=== PATIENT | male | born 1985 | race Caucasian/White ===

== ENCOUNTER 2023-03-21 11:47 | Day surgery (SDC) | payer OTHER, SELFPAY ==
[2023-03-21] VITALS (8 sets, daily range): BP systolic 111–179; BP diastolic 72–101; PULSE 78–91; RESP 16–18; TEMP 36.8–37.1; O2SAT 91–100; BMI 28.6
[2023-03-21] MEDS: Lactated Ringers 1,000 ML 15 ML IV (12:27)
--- NOTE | 2023-03-21 12:47 | HP.PCM_ITS ---
History and Physical Date of Admission: 03/21/23 Intake Vital Signs 03/10/2315:06 Height 5 ft 7 in Weight: 184 lb BMI 28.8 BP 158/115 H Blood Pressure Location Rt brachial Position Sitting Respiration 18 Intake Visit Reasons: BRB IN STOOL, DIARRHEA, DYSPHAGIA Chief Complaint: brb, diarrhea, dysphagia Programmer Or Analyst Required: No Is patient in pain?: No Allergies amoxicillin Allergy (Verified 03/10/23 15:07) Unknown Medications multivitamin tab PO 03/10/23 [History Confirmed 03/10/23] omeprazole 40 mg capsule,delayed release 40 mg PO DAILY #30 caps 03/10/23 [Rx Confirmed 03/10/23] sucralfate 1 gram tablet (Carafate) 1 g PO QACHS 14 days #56 tabs 03/10/23 [Rx Confirmed 03/10/23] PFSH Medical History (Updated 03/10/23 @ 16:[address] Hector Vasquez MD) Diarrhea Dysphagia Encounter for screening for COVID-19 Rectal bleeding Surgical History (Updated 03/10/23 @ 15:08 by Lydia Phillip) S/P wisdom tooth extraction Social History Smoking Status: Never smoker alcohol intake: never HPI HPI HPI: Patient is a 37-year-old male here for diarrhea and dysphagia. The patient reports that occasionally pills will get stuck and he has to cough them back up. He does not report any food getting stuck. He also says that he awakens every day with a very bad cough that is productive. He says that he has some acid reflux but does not think it is severe. He is also been having diarrhea for 3 years since he returned from [place]. 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 Patient reports that occasionally does have blood in the stool. ROS General General: Yes fatigue; No weight change, appetite, colon cancer, breast cancer or weakness HEENT HEENT: No difficulty swallowing, eye injury, eye surgery, swollen glands or hoarseness Endo Endocrine: No thyroid disease, diabetes mellitus, thyroid cancer, Hair loss, heat intolerance or cold intolerance Skin Skin: No rash or changing moles Breast Breast: No left breast lump, right breast lump, nipple discharge, breast pain, abnormal mammogram, abnormal US or breast enlargement Musc Musculoskeletal: No back problems, arthritis, rheumatoid arthritis, gout or joint pain Cardio Cardiovascular: Yes high blood pressure; No murmur, pacemaker, heart disease, atrial fibrillation, heart attack, heart stent, palpitations, shortness of breat with exertion or chest pain Psych Psychiatric: Yes anxiety; No depression or hearing voices Resp Respiratory: No shortness of breath, Yes sleep apnea, Yes cough, No COPD, No asthma, No emphysema and No wheezing Gastro Gastrointestinal: No abdominal pain, Yes nausea or vomiting, Yes diarrhea, No constipation, Yes blood in stool, No acid reflux, No hemorrhoids, No ulcers, No gallbladder problem and No black,tarry stools Jorge Hematologic: No blood thinners, No blood disorders, No bleeding, No anemia and No blood clots Neuro Neurologic: No system reviewed and no additional complaints, except as documented, No as per HPI, No abnormal gait, No abnormal hearing, No abnormal movements, No abnormal speech, No behavioral changes, No burning sensations, No confusion, No convulsions, No disequilibrium, No dizziness, No localized weakness, No frequent falls, No headache(s), No lack of coordination, No loss of vision, No memory loss, No numbness, No other visual disturbances, No radicular pain, No restless legs, No sensory deficit, No syncope, No tingling, No tremor(s), No weakness and No other Exam Const General: cooperative Orientation: alert and oriented x3 HENMT Head: normal to inspection Neck Neck: normal visual inspection and full ROM Chest Chest palpation & inspection: normal inspection of the chest Resp Effort & Inspection: normal respiratory effort Auscultation: clear to auscultation bilaterally Cardio Rate: regular rate Rhythm: regular rhythm GI Inspection: non-distended Palpation: soft and nontender Skin General: no rashes or lesions noted Neuro General: patient alert and patient oriented x3 Extrem General: full ROM Psych Appearance: grossly normal Mental Status: mental status grossly normal Assessment and Plan Assessment and Plan (1) Dysphagia: Status: Acute Qualifiers: Dysphagia type: unspecified Qualified Code(s): R13.10 - Dysphagia, u nspecified (2) Rectal bleeding: Status: Acute (3) Diarrhea: Status: Acute Qualifiers: Diarrhea type: unspecified type Qualified Code(s): R19.7 - Diarrhea, unspecified Orders: Orders Colonoscopy Today EGD Today Medications: New sucralfate (Carafate) 1 g PO QACHS 14 days 56 tabs 0RF omeprazole 40 mg PO DAILY 30 caps 0RF Plan The patient has been having diarrhea for years and is concerned for colon cancer. He is also having dysphagia. I discussed the possibility that gastritis could be causing his symptoms of diarrhea and coughing in the morning. I would like to perform an EGD and colonoscopy to evaluate for the dysphagia and to check for gastritis as well as check for H. pylori and then I will also perform random biopsies of the colon to check for microscopic colitis. Patient was provided prep by the [facility]. I will also start the patient on Carafate and omeprazole until I am able to scope him in case this is gastritis. I explained endoscopy in detail to the patient. I explained the risks including but not limited to stroke or heart attack with anesthesia, perforation of the GI tract, bleeding, infection. I explained that any of these could necessitate further emergency surgery. The patient understands and all questions were answered sufficiently. The patient wishes to proceed with procedure. Hector Vasquez MD Pager: [facility] [address] [place] [address], [address] [place] [address] Office: I have examined the patient and the H&P has been reviewed. There are no clinical changes since date of exam.
--- NOTE | 2023-03-21 13:15 | OP.EGD_ITS ---
Patient Name: Timbo Manuel Procedure Date: 03/21/2023 12:21 PM Date of : 1985 Age: 37 Procedure: Upper GI endoscopy Indications: Dysphagia Providers: Hector Vasquez MD Medicines: Monitored Anesthesia Care Patient Profile: This is a 37 year old male. Refer to note in patient chart for documentation of history and physical. Complications: No immediate complications. Estimated blood loss: Minimal. Procedure: Pre-Anesthesia Assessment: - Prior to the procedure, a History and Physical was performed, and patient medications and allergies were reviewed. The patient's tolerance of previous anesthesia was also reviewed. The risks and benefits of the procedure and the sedation options and risks were discussed with the patient. All questions were answered, and informed consent was obtained. Prior Anticoagulants: The patient has taken no anticoagulant or antiplatelet agents. After reviewing the risks and benefits, the patient was deemed in satisfactory condition to undergo the procedure. After obtaining informed consent, the endoscope was passed under direct vision. Throughout the procedure, the patient's blood pressure, pulse, and oxygen saturations were monitored continuously. The gastroscope was introduced through the mouth, and advanced to the fourth part of duodenum. The upper GI endoscopy was accomplished without difficulty. The patient tolerated the procedure well. Scope In: 12:56:21 PM Scope Out: 12:57:58 PM Total Procedure Duration Time 0 hours 1 minute 37 seconds Findings: The esophagus was normal. The stomach was normal. The examined duodenum was normal. Impression: - Normal esophagus. - Normal stomach. - Normal examined duodenum. - No specimens collected. Recommendation: - Discharge patient to home. - Resume previous diet. - Continue present medications. Procedure Code(s): --- Professional --- 70435, Esophagogastroduodenoscopy, flexible, transoral; diagnostic, including collection of specimen(s) by brushing or washing, when performed (separate procedure) Diagnosis Code(s): --- Professional --- R13.10, Dysphagia, unspecified CPT copyright 2021 [employer]. All rights reserved. The codes documented in this report are preliminary and upon precision lens generator review may be revised to meet current compliance requirements. Hector Vasquez MD 03/21/2023 1:14:48 PM This report has been signed electronically. Number of Addenda: 0 Note Initiated On: 03/21/2023 12:21 PM
--- NOTE | 2023-03-21 13:16 | OP.COLON_ITS ---
Patient Name: Timbo Manuel Procedure Date: 03/21/2023 1:00 PM Date of : 1985 Age: 37 Procedure: Colonoscopy Indications: Hematochezia Providers: Hector Vasquez MD Medicines: Monitored Anesthesia Care Patient Profile: This is a 37 year old male. Refer to note in patient chart for documentation of history and physical. Last Colonoscopy: none. The patient's first colonoscopy is today. Complications: No immediate complications. Estimated blood loss: Minimal. Procedure: Pre-Anesthesia Assessment: - Prior to the procedure, a History and Physical was performed, and patient medications and allergies were reviewed. The patient's tolerance of previous anesthesia was also reviewed. The risks and benefits of the procedure and the sedation options and risks were discussed with the patient. All questions were answered, and informed consent was obtained. Prior Anticoagulants: The patient has taken no anticoagulant or antiplatelet agents. After reviewing the risks and benefits, the patient was deemed in satisfactory condition to undergo the procedure. - Prior to the procedure, a History and Physical was performed, and patient medications and allergies were reviewed. The patient's tolerance of previous anesthesia was also reviewed. The risks and benefits of the procedure and the sedation options and risks were discussed with the patient. All questions were answered, and informed consent was obtained. Prior Anticoagulants: The patient has taken no anticoagulant or antiplatelet agents. After reviewing the risks and benefits, the patient was deemed in satisfactory condition to undergo the procedure. After I obtained informed consent, the scope was passed under direct vision. Throughout the procedure, the patient's blood pressure, pulse, and oxygen saturations were monitored continuously. The colonoscope was introduced through the anus and advanced to the cecum, identified by appendiceal orifice and ileocecal valve. The colonoscopy was performed without difficulty. The patient tolerated the procedure well. The quality of the bowel preparation was good. The ileocecal valve, appendiceal orifice, and rectum were photographed. Scope In: 1:01:01 PM Scope Withdrawal Time 0 hours 6 minutes 13 seconds Scope Out: 1:10:44 PM Total Procedure Duration Time 0 hours 9 minutes 43 seconds Findings: The entire examined colon appeared normal on direct and retroflexion views. Impression: - The entire examined colon is normal on direct and retroflexion views. - No specimens collected. Recommendation: - Discharge patient to home. - Resume previous diet. - Continue present medications. - Repeat colonoscopy in 10 years for screening purposes. Procedure Code(s): --- Professional --- 17218, Colonoscopy, flexible; diagnostic, including collection of specimen(s) by brushing or washing, when performed (separate procedure) Diagnosis Code(s): --- Professional --- K92.1, Melena (includes Hematochezia) CPT copyright 2021 [employer]. All rights reserved. The codes documented in this report are preliminary and upon acute care nurse practitioner review may be revised to meet current compliance requirements. Hector Vasquez MD 03/21/2023 1:16:05 PM This report has been signed electronically. Number of Addenda: 0 Note Initiated On: 03/21/2023 1:00 PM
== END 2023-03-21 14:15 | disposition home or self-care (01) ==
LOC: EN 11:49 → AC 11:51
PROVIDERS: Referring Provider Surgery; Visit Provider Surgery
PROC: 0DJD8ZZ Inspection of Lower Intestinal Tract, Via Natural or Artificial Opening Endoscopic (ICD-10-PCS; CPT 45378; principal; 2023-03-21 12:55)
DX: R13.10 Dysphagia, unspecified (principal); R19.7 Diarrhea, unspecified; K21.9 Gastro-esophageal reflux disease without esophagitis; K92.1 Melena
CPT/HCPCS: 43235; 45378; J7120; J2405

== ENCOUNTER 2023-05-09 06:05 | Inpatient (IN) | payer OTHER, SELFPAY ==
[2023-05-09] VITALS (7 sets, daily range): BP systolic 132–158; BP diastolic 88–100; PULSE 92–121; RESP 16–24; TEMP 36.8–37.1; O2SAT 94–100; BMI 28.1
--- NOTE | 2023-05-09 06:18 | EKG12_ITS ---
Test Reason : SEIZURE Blood Pressure : / mmHG Vent. Rate : 090 BPM Atrial Rate : 090 BPM P-R Int : 186 ms QRS Dur : 102 ms QT Int : 368 ms P-R-T Axes : 049 060 021 degrees QTc Int : 450 ms Normal sinus rhythm Nonspecific T wave abnormality Abnormal ECG Confirmed by ALEJANDRA DAMON, AGUSTINA ([id number]), purchasing expeditor AMY MONTENEGRO ([id number]) on 05/17/2023 9:21:38 AM Referred By: KOURTNEY Confirmed By:AGUSTINA ROBERTS MD
--- NOTE | 2023-05-09 06:18 | CT_ITS ---
EXAM: CT HEAD WITHOUT INTRAVENOUS CONTRAST CLINICAL INDICATION: Seizure TECHNIQUE: Multiple axial images were obtained of the head without intravenous contrast. This CT exam was performed using one or more of the following dose reduction techniques: automated exposure control, adjustment of the mA and/or kV according to patient size, and/or use of iterative reconstruction technique. RADIATION DOSE: CTDIvol = 44.99 mGy, DLP = 762.36 mGy-cm COMPARISON: No relevant prior studies available. FINDINGS: BRAIN AND EXTRA-AXIAL SPACES: Unremarkable. No intra- or extra-axial hemorrhage. No evidence of acute infarct. No intracranial mass or mass effect. There is preservation of the hernandez/white matter interface. Posterior fossa structures are unremarkable. Ventricles are appropriate for age. No hydrocephalus. Basal cisterns are patent. BONES/JOINTS: Unremarkable. No discrete lytic or blastic abnormalities. SINUSES: Unremarkable as visualized. Clear. MASTOID AIR CELLS: Unremarkable. Clear. ORBITS: Visualized globes, extraocular muscles, optic nerves and retrobulbar fat appear unremarkable. CT/Brain/Head without Contrast IMPRESSION: Negative head/brain CT without intravenous contrast. Electronically Signed: Cliff Malhotra MD at 6:56 EST ,
--- NOTE | 2023-05-09 06:20 | EDS_ITS ---
HPI History of Present Illness Chief Complaint: Seizure Narrative Narrative: 37-year-old male, past medical history of night terrors, presents with new onset seizure that happened this morning. He relates history that he has had nausea and vomiting over the last few days. His symptoms began on Tuesday, approximately 3 days ago where he vomited at least 10 times. He has been able to keep anything down. He denies any blood in his emesis, but a few days ago had black stool. He has not been able to keep anything down so he really has not had a bowel movement over the last few days. In the last 24 hours he has vomited perhaps 3 times but is more dry heaving than anything else. He got up to go to the bathroom, and vomited, then when he went back to bed, he felt like he was having sleep paralysis and could feel himself shaking. His states that she went into the bedroom and found him convulsing and contracted and this lasted at least 30 seconds while she was present. Her mother is staying in [facility], who called 911. While she was doing that, patient became more alert and was trying to come out of it but was confused. He had urinated. While he does not have a history of seizure disorder, his father has a history of epilepsy. Reportedly, this happened around 518 in the morning. He was confused afterwards according to his . [facility] Medical History Anxiety Bite from insect Chronic cough Diarrhea Dysphagia Encounter for screening for COVID-19 Gastric reflux History of GI bleed Hypertension Leg cramps Non-smoker Panic disorder PTSD (post-traumatic stress disorder) Rectal bleeding Home Medications multivitamin 1 tab PO DAILY 03/10/23 [History Last Taken Unknown] hydroxyzine HCl 25 mg tablet 25 mg PO Q8H PRN anxiety 03/17/23 [History Last Taken Unknown] Allergy/AdvReac Type Severity Reaction Status Date / Time amoxicillin Allergy Unknown Verified 05/09/23 06:12 Surgical History S/P wisdom tooth extraction Social History Smoking Status: Never smoker alcohol intake: never ROS ROS ED ROS Narrative Constitutional: No fever, no chills. HEENT: No sore throat. No neck pain. No loss of vision. No rhinorrhea. Cardiovascular: No chest pain. No palpitations. No pedal edema. Respiratory: No cough, no shortness of breath. Abdominal: No abdominal pain. Positive nausea and vomiting for the last 3 days. Genitourinary: No dysuria. No hematuria. Musculoskeletal: No myalgias. No arthralgias. Neurologic: No headaches. No dizziness. No lightheadedness. Reported seizure activity with loss of bladder. Positive postictal state according to . Skin: No rash. No change in color. Psychiatric: No depression. No anxiety. Has anxiety meds prescribed but has not taken it recently. EXAM Physical Exam Narrative Exam Narrative: Afebrile. Vital signs noted. HEENT: Normocephalic. Atraumatic. PERRL, EOMI. Neck soft and supple. No point tenderness or step off. Cardiovascular: Positive tachycardia no murmurs, rubs, or gallops appreciated. Respiratory: No tachypnea. Lungs clear to auscultation bilaterally. Gastrointestinal: Abdomen soft, nontender, with normoactive bowel sounds. No rebound or guarding. Neurological: Awake. Alert. Oriented. Nonfocal, nonlateralizing. Skin: No rash. Normal color. No pallor. Musculoskeletal: No pedal edema. Full range of motion extremities. Const Vital Signs: 05/09/23 06:07 Temperature 98.3 F Temperature Source Temporal Pulse Rate 113 H Respiratory Rate 18 Blood Pressure 158/88 H Blood Pressure Mean 111 Pulse Ox 94 Oxygen Delivery Method Room Air MDM MDM MDM Narrative Medical decision making narrative: In the differential diagnosis is dehydration, gastroenteritis, pancreatitis, onset seizure disorder. I will obtain a CT of the brain and basic laboratory work. I will add a lactic acid and a prolactin. Given that he had reportedly a [place] seizure with loss of bladder, I do feel that he would merit at least observation regardless of what the laboratory work shows. I reviewed the CT imaging, and the CT report of the brain which shows no acute process, no mass or hemorrhage. EKG obtained and interpreted by myself independently demonstrates normal sinus rhythm at 90 bpm without ectopy or acute ST changes. No STEMI. What is returned thus far is a CBC which I reviewed, and he has a normal white count of 6.5, hemoglobin normal at 14.5, hematocrit 40.6, platelet count normal at 187. At this point in time, patient will be signed out to the oncoming physician, Dr. Dixon Gregory, who will check the remaining laboratory work and make final disposition on this patient after consultation with neurology via telehealth. History & Record Review Discussion w/independent historian: Patient and Family Lab Data Attestation: I reviewed the patient's lab results. Labs: Laboratory Results - last 24 hr 05/09/23 06:16 WBC 6.5 RBC 4.37 L Hgb 14.5 Hct 40.6 MCV 92.9 MCH 33.2 H MCHC 35.7 RDW Std Deviation 39.6 RDW Coeff of Cecily 11.7 Plt Count 187 MPV 10.2 Immature Gran % (Auto) 0.600 Neut % (Auto) 64.8 Lymph % (Auto) 21.7 [place] % (Auto) 10.4 H Eos % (Auto) 1.7 Baso % (Auto) 0.8 Absolute Neuts (auto) 4.2 Absolute Lymphs (auto) 1.42 Nucleated RBC % 0 Radiography Diagnostic Testing: Clinical Impression(s) from Imaging Studies Brain CT 05/09/23 06:18 IMPRESSION: Negative head/brain CT without intravenous contrast. Electronically Signed: Cliff Malhotra MD at 6:56 EST , Discharge Plan Triage Chief Complaint: Seizure ED Provider: Mansoor Mendez Dx/Rx/DC Orders Prescriptions: No Action multivitamin Tablet 1 tab PO DAILY hydroxyzine HCl 25 mg tablet 25 mg PO Q8H PRN (Reason: anxiety) Primary Care Provider: Care Physician,No Primary Referrals: Care Physician,No Primary [Primary Care Provider] -
[2023-05-09] MEDS: 0.9% Normal Saline (1000mL) 1,000 ML 1000 ML IV (06:24)
[2023-05-09 06:40] LABS: Absolute Lymphocyte Count 1.42 X10^3/uL (0.83-4.51); Absolute Neutrophil Count 4.2 X10^3/uL (2.0-7.7); Basophil# 0.05 X10^3/uL; Basophil% 0.8 % (0-1); Eosinophil# 0.11 X10^3/uL; Eosinophils% 1.7 % (0-5); Hematocrit 40.6 % (40-54); Hemoglobin 14.5 g/dL (13.0-16.5); Lymphocyte # 1.42 X10^3/ul (0.83-4.51); Lymphocyte % 21.7 % (19-41); Mean Corp Hgb Conc 35.7 g/dL (32-36); Mean Corpuscular Hgb 33.2 pg (27.0-32.0); Mean Corpuscular Volume 92.9 fL (80-94); Mean Platelet Vol. 10.2 fl (6.2-12.0); Monocyte# 0.68 X10^3/uL; Monocyte% 10.4 % (0-10); NRBC Flagged by Analyzer 0 % (0-5); Neutrophil # 4.24 X10^3/uL (2.7-7.7); Neutrophil % 64.8 % (47-70); Platelet Count 187 K/mm3 (150-450); RBC Distribution Width CV 11.7 % (11.6-14.6); RBC Distribution Width SD 39.6 fl (35.1-43.9); Red Blood Count 4.37 M/mm3 (4.6-6.2); White Blood Count 6.5 K/mm3 (4.4-11.0)
--- NOTE | 2023-05-09 06:51 | NURSING ---
NO OLD EKGS
[2023-05-09 07:32] LABS: Lactic Acid 3.5 mmol/L (0.4-1.9)
[2023-05-09 07:33] LABS: ALB/GLOB Ratio 1.3 RATIO (0.9-2.4); AST(SGOT) 321 U/L (15-37); Alanine Aminotransfer ALT/SGPT 323 U/L (16-61); Albumin, Serum 4.2 g/dL (3.2-5.0); Alkaline Phosphatase 78 U/L (45-117); Anion Gap 10 (5-15); BUN 13 mg/dL (7-18); BUN/Creat Ratio 15.3 RATIO (10-20); Calcium,Total 9.3 mg/dL (8.5-10.1); Chloride 96 mmol/L (98-107); Creatinine, Serum 0.85 mg/dL (0.70-1.30); EST Glomerular Filtration Rate 109 mL/min (>60); Est Glom Filt Rate - Afr Amer 131 mL/min (>60); Globulin 3.3 g/dL (2.2-4.2); Glucose 189 mg/dL (74-106); Lipase 54 U/L (13-75); Potassium 3.4 mmol/L (3.5-5.1); Prolactin 36.1 ng/mL; Protein, Total 7.5 g/dL (6.4-8.2); Sodium Level 132 mmol/L (136-145); Troponin-I HS 6 pg/mL (3.0-78.0)
[2023-05-09] MEDS: LORazepam 2 MG/ML Syringe 1 MG IV (08:51)
--- NOTE | 2023-05-09 09:07 | NURSING ---
CALLED AND LEFT MESSAGE ON [facility] TRANSFER [facility].
[2023-05-09] MEDS: DEXTROSE 5% IV (09:28)
[2023-05-09] MEDS: WATER IV (09:28)
[2023-05-09] MEDS: VALPROATE SODIUM IV (09:28)
[2023-05-09 10:31] LABS: Reflex Lactate? Y
[2023-05-09] MEDS: Acetaminophen 325 MG Tablet 650 MG PO (11:05)
--- NOTE | 2023-05-09 11:47 | NURSING ---
FAXED CHART TO BRENT LOPEZ [phone]
--- NOTE | 2023-05-09 12:43 | NURSING ---
CALLED [facility] AGA[facility], LEFT MESSAGE WITH IN INFO
--- NOTE | 2023-05-09 13:07 | NURSING ---
DR HAYS FOR DR MORTON
[2023-05-09 13:09] LABS: Lactic Acid 2.3 mmol/L (0.4-1.9)
--- NOTE | 2023-05-09 13:14 | NURSING ---
DR HAYS IN ROOM
--- NOTE | 2023-05-09 13:22 | NURSING ---
PCU [facility] NEW ONSET WITH RECURRENT SEIZURES
--- NOTE | 2023-05-09 15:49 | PCM.HP.STD ---
HPI - General General Date of Admission: 05/09/23 HPI Narrative THERESA JACOBSON, is a 37 M who presents to the hospital with 2 seizures today. Both seizures were witnessed 1 was at home and the other 1 was here in the ER. He says that his father has a history of seizures but he has never had seizures prior to today. He does admit to using alcohol but states he is never gone through withdrawal and his last drink was 4 days ago because he was not feeling well with some nausea and vomiting he is not significantly dehydrated and does not have major electrolyte derangements to consider that for cause of his seizures. His LFTs are little bit elevated which could be due to his alcohol use, his lactic acid in the ER was elevated which is likely in reaction to his seizures. According to his girlfriend she was getting ready to go hunting today when she heard him scream and when she went up to the bedroom he was contracted on his side shaking and having drool out of his mouth. She did note that he had a loss of bladder function at that time and the seizure lasted anywhere between 30 seconds and a minute and then he recovered but was altered for a period of time afterwards where she noticed that he is just could not focus. They brought him to the emergency room where he had another seizure that was the same as the one he had at home he did not have a loss of bowel or bladder function with a second seizure. He was given dose of Keppra in the ER [facility] to [facility] him in [facility] therefore he will be admitted to this facility. [facility] Medical History Anxiety Bite from insect Chronic cough Diarrhea Dysphagia Encounter for screening for COVID-19 Gastric reflux History of GI bleed Hypertension Leg cramps Non-smoker Panic disorder PTSD (post-traumatic stress disorder) Rectal bleeding Home Medications multivitamin 1 tab PO DAILY 03/10/23 [History Last Taken Unknown] hydroxyzine HCl 25 mg tablet 25 mg PO Q8H PRN anxiety 03/17/23 [History Last Taken Unknown] Allergy/AdvReac Type Severity Reaction Status Date / Time amoxicillin Allergy Unknown Verified 05/09/23 06:12 Family History (Updated 05/09/23 @ 15:[address] Micha Noel MD) Father Seizures Surgical History S/P wisdom tooth extraction Social History Smoking Status: Never smoker alcohol intake: never ROS Constitutional Constitutional: Denies chills, fatigue, fever(s) or malaise Eyes Eyes: Denies blurry vision ENT HEENT: Denies headache(s) or nasal discharge Cardiovascular Cardiovascular: Denies chest pain, dyspnea on exertion or syncope Respiratory/Chest Respiratory/Chest: Denies cough, shortness of breath at rest or shortness of breath with exertion Gastrointestinal Gastrointestinal: Reports nausea and vomiting; Denies constipation or diarrhea Genitourinary Genitourinary: Denies dysuria Neurologic Neurologic: Reports seizures; Denies focal weakness, numbness or tremor(s) Psychiatric Psychiatric: Denies anxiety or depression Vital Signs Vital Signs Vital Signs: 05/09/23 06:07 05/09/23 10:53 05/09/23 11:00 Temperature 98.3 F Temperature Source Temporal Pulse Rate 113 H 106 H 101 H Respiratory Rate 18 22 H 24 H Respiratory Effort Respiratory Depth Respiratory Pattern Blood Pressure 158/88 H 142/90 H 143/93 H Blood Pressure Mean 111 107 109 Blood Pressure Source Blood Pressure Position Blood Pressure Location Pulse Ox 94 100 99 Oxygen Delivery Method Room Air Room Air Room Air 05/09/23 12:48 05/09/23 12:48 05/09/23 14:51 Temperature 98.7 F Temperature Source Oral Pulse Rate 118 H 121 H 92 Respiratory Rate 16 16 17 Respiratory Effort Respiratory Depth Respiratory Pattern Blood Pressure 132/90 H 132/90 H 139/95 H Blood Pressure Mean 104 104 109 Blood Pressure Source Monitor Blood Pressure Position Semi-Fowlers Blood Pressure Location Right Arm Pulse Ox 97 97 98 Oxygen Delivery Method Room Air Room Air 05/09/23 15:31 Temperature Temperature Source Pulse Rate Respiratory Rate Respiratory Effort Normal Non-Labored Respiratory Depth Normal Respiratory Pattern Normal Blood Pressure Blood Pressure Mean Blood Pressure Source Blood Pressure Position Blood Pressure Location Pulse Ox Oxygen Delivery Method Room Air Weight Weight: 179 lb 10.828 oz Body Mass Index (BMI) 28.1 Physical Exam Narrative General: Alert, Oriented x3, Cooperative, No apparent distress HEENT: Atraumatic, PERRLA, EOMI, Normocephalic Oral: Moist Mucosa Neck: Supple, No JVD Lungs: Clear to auscultation, Normal air movement, No rhonchi, No wheeze, No rales Cardiovascular: Regular rate, Regular Rhythm, Normal S1, Normal S2, No murmurs Abdomen: Soft, Non Tender, Non-Distended, No Hepato-splenomegaly Extremities: No edema, Capillary Refill Less than 3 Seconds Skin: No rashes, No breakdown Musculoskeletal: No Tenderness to Palpation of Joints or Extremities Neurological: Cranial nerves II-XII grossly intact, Motor Exam 5/5 strength throughout, Sensory exam intact to light touch and pain Psych/Mental Status: Normal Affect, Appropriate Results Lab / Micro Data 05/09/23 06:16 05/09/23 06:16 Labs: Laboratory Results - last 24 hr 05/09/23 06:16: WBC 6.5, RBC 4.37 L, Hgb 14.5, Hct 40.6, MCV 92.9, MCH 33.2 H, MCHC 35.7, RDW Std Deviation 39.6, RDW Coeff of Cecily 11.7, Plt Count 187, MPV 10.2, Immature Gran % (Auto) 0.600, Neut % (Auto) 64.8, Lymph % (Auto) 21.7, [place] % (Auto) 10.4 H, Eos % (Auto) 1.7, Baso % (Auto) 0.8, Absolute Neuts (auto) 4.2, Absolute Lymphs (auto) 1.42, Nucleated RBC % 0, Sodium 132 L, Potassium 3.4 L, Chloride 96 L, Carbon Dioxide 26.0, Anion Gap 10, BUN 13, Creatinine 0.85, Est GFR (MDRD) Af Amer 131, Est GFR (MDRD) Non-Af 109, BUN/Creatinine Ratio 15.3, Glucose 189 H, Calcium 9.3, Total Bilirubin 2.50 H, AST 321 H, ALT 323 H, Alkaline Phosphatase 78, Troponin I High Sens 6, Total Protein 7.5, Albumin 4.2, Globulin 3.3, Albumin/Globulin Ratio 1.3, Lipase 54, Prolactin 36.1 05/09/23 06:25: Lactic Acid 3.5 H* 05/09/23 11:00: Lactic Acid 2.3 H* Imagaing Radiology Impression Brain CT 05/09/23 06:18 IMPRESSION: Negative head/brain CT without intravenous contrast. Electronically Signed: Cliff Malhotra MD at 6:56 EST , Assessment & Plan Assessment/Plan (1) Seizures: PLAN: Plan 1. New onset seizures ? He denies that this has anything to do with any alcohol, he does not feel like he drinks significantly and can go without drinking for long periods of time and has not had a drink in 4 to 5 days ? We will obtain an MRI in the morning, he does have a family history of seizures in his father ? Will consult [facility] neurology for evaluation ? Will obtain an EEG ? Will place on IV Keppra 1000 mg twice daily ? He does state that he has a history of obstructive sleep apnea so we will obtain a nocturnal pulse ox to see if he is achieving periods of significant hypoxia with sleep, he states that [facility] 2. Anxiety ? Stable ? Can resume his home hydroxyzine if necessary DVT: Ambulation 75 minutes was spent on direct patient care, including documentation as well as chart review and collaboration with colleagues Charges/Coding Visit Charges Inpatient E&M: 21269 Init Hosp L3
[2023-05-09] MEDS: Acetaminophen 500 MG Tablet 1000 MG PO (22:19)
[2023-05-09] MEDS: levETIRAcetam IV 1,000 MG/100 ML BAG 400 MG IV (22:19)
[2023-05-10 02:50] VITALS: BP 127/87; PULSE 86; RESP 14; TEMP 36.8; O2SAT 99
[2023-05-10 05:53] LABS: Absolute Lymphocyte Count 1.46 X10^3/uL (0.83-4.51); Absolute Neutrophil Count 3.6 X10^3/uL (2.0-7.7); Basophil# 0.03 X10^3/uL; Basophil% 0.5 % (0-1); Eosinophil# 0.09 X10^3/uL; Eosinophils% 1.6 % (0-5); Hematocrit 38.4 % (40-54); Hemoglobin 13.8 g/dL (13.0-16.5); Lymphocyte # 1.46 X10^3/ul (0.83-4.51); Lymphocyte % 25.2 % (19-41); Mean Corp Hgb Conc 35.9 g/dL (32-36); Mean Corpuscular Hgb 33.8 pg (27.0-32.0); Mean Corpuscular Volume 94.1 fL (80-94); Mean Platelet Vol. 9.9 fl (6.2-12.0); Monocyte# 0.63 X10^3/uL; Monocyte% 10.9 % (0-10); NRBC Flagged by Analyzer 0 % (0-5); Neutrophil # 3.56 X10^3/uL (2.7-7.7); Neutrophil % 61.3 % (47-70); Platelet Count 154 K/mm3 (150-450); Red Blood Count 4.08 M/mm3 (4.6-6.2); White Blood Count 5.8 K/mm3 (4.4-11.0)
--- NOTE | 2023-05-10 05:55 | MRI_ITS ---
EXAM: MR HEAD WITHOUT AND WITH INTRAVENOUS CONTRAST CLINICAL INDICATION: New-onset seizure. TECHNIQUE: Multiplanar and multisequence MR images of the brain were obtained without and with intravenous contrast. CONTRAST: IV 16ml Clariscan COMPARISON: CT head without contrast 05/09/2023. FINDINGS: BRAIN AND EXTRA-AXIAL SPACES: Unremarkable. No intra- or extra-axial hemorrhage. No evidence of acute infarct. No intracranial mass or mass effect. There is preservation of the hernandez/white matter interface. Posterior fossa structures are unremarkable. Ventricles are appropriate for age. No hydrocephalus. Basal cisterns are patent. No suspicious abnormality of the limbic lobes. Following IV contrast administration, there are no abnormally enhancing lesions intra-axially and extra-axially. SELLA: Unremarkable. Normal sella turcica, pituitary gland, infundibular stalk, optic chiasm and hypothalamus. AUDITORY SYSTEM: Unremarkable. The internal auditory canals are patent. BONES/JOINTS: Unremarkable. No discrete lytic or blastic abnormalities. SINUSES: Unremarkable as visualized. Clear. MASTOID AIR CELLS: Unremarkable as visualized. Clear. ORBITS: Unremarkable as visualized. Both globes, extraocular muscles, optic nerves and retrobulbar fat appear unremarkable. VASCULATURE: Unremarkable as visualized. Normal flow voids in the major intracranial circulation. MRI/Brain W/WO Contrast IMPRESSION: Negative MRI brain without and with intravenous contrast. Electronically Signed: Mansoor Meade MD at 10:03 [facility] ,
[2023-05-10 06:26] LABS: ALB/GLOB Ratio 1.1 RATIO (0.9-2.4); AST(SGOT) 198 U/L (15-37); Alanine Aminotransfer ALT/SGPT 258 U/L (16-61); Albumin, Serum 3.7 g/dL (3.2-5.0); Alkaline Phosphatase 69 U/L (45-117); Anion Gap 8 (5-15); BUN 9 mg/dL (7-18); BUN/Creat Ratio 15.2 RATIO (10-20); Calcium,Total 8.3 mg/dL (8.5-10.1); Chloride 102 mmol/L (98-107); Creatinine, Serum 0.59 mg/dL (0.70-1.30); EST Glomerular Filtration Rate 165 mL/min (>60); Est Glom Filt Rate - Afr Amer 200 mL/min (>60); Estimated Creatinine Clearance 163.38 ml/min; Globulin 3.3 g/dL (2.2-4.2); Glucose 90 mg/dL (74-106); Potassium 3.2 mmol/L (3.5-5.1); Sodium Level 137 mmol/L (136-145)
[2023-05-10 08:50] VITALS: BP 122/83; PULSE 84; RESP 14; TEMP 36.6; O2SAT 98
[2023-05-10] MEDS: levETIRAcetam IV 1,000 MG/100 ML BAG 400 MG IV (10:00)
[2023-05-10 12:50] LABS: Amphetamine Urine VISTA NEGATIVE (<1000 ng/mL); Barbiturate Urine VISTA NEGATIVE (< 200 ng/mL); Benzodiazepine Urine VISTA NEGATIVE (< 200 ng/mL); Cocaine Urine VISTA NEGATIVE (< 300 ng/mL); Ecstacy Urine VISTA NEGATIVE (< 500 ng/mL); Methadone Urine VISTA NEGATIVE (< 300 ng/mL); PCP Urine VISTA NEGATIVE (< 25 ng/mL); THC Urine VISTA POSITIVE (< 50 ng/mL); Vista UDS pH Range 6
--- NOTE | 2023-05-10 13:04 | NEURO.CONS ---
Assessment and Plan: Neuro Assessment/Plan THERESA JACOBSON is a 37 M with a past medical history of PTSD, TBI, being evaluated by Teleneurology for new onset seizure. On history, event convincing for a seizure with prodromal elements, description of event consistent with seizure and postictal period. He also has risk factors for developing additional seizure (nocturnal event, family history and ho TBI). On exam, there is numbness of the R face but unclear relation. On my evaluation of the MRI Brain, has some asymmetry of the temporal lobes but no clear acute abnormalities. Ddx for new onset seizure include - idiopathic epilepsy, provoked seizure in setting of acute illness. Based on his history and risk factors, discussed starting AEDs with patient given the 20-40% recurrence risk (although I would put his recurrence rate given the history on the higher side of that range). Family and patient were interested in started AED, side effects of Keppra reviewed with him. Seizure precautions including 3-6 months of no driving or operating heavy machinery were reviewed with the patient. Diagnosis: seizure Plan: - EEG read pending, will have prelim read this afternoon - start Keppra 750mg BID No additional recs. EEG results will be conveyed this afternoon. Will otherwise sign off. I personally attended this patient and spent a total time of 45 minutes evaluating this patient including clinical assessment, review of chart, medical history imaging, and determining appropriate treatment and workup. HPI Consult Data Date of Consult: 05/10/23 HPI Narrative HPI Narrative: THERESA JACOBSON, is a 37 M who presents to the hospital with 2 seizures today. Both seizures were witnessed 1 was at home and the other 1 was here in the ER. He says that his father has a history of seizures but he has never had seizures prior to today. He does admit to using alcohol but states he is never gone through withdrawal and his last drink was 4 days ago because he was not feeling well with some nausea and vomiting he is not significantly dehydrated and does not have major electrolyte derangements to consider that for cause of his seizures. His LFTs are little bit elevated which could be due to his alcohol use, his lactic acid in the ER was elevated which is likely in reaction to his seizures. According to his girlfriend she was getting ready to go hunting today when she heard him scream and when she went up to the bedroom he was contracted on his side shaking and having drool out of his mouth. She did note that he had a loss of bladder function at that time and the seizure lasted anywhere between 30 seconds and a minute and then he recovered but was altered for a period of time afterwards where she noticed that he is just could not focus. They brought him to the emergency room where he had another seizure that was the same as the one he had at home he did not have a loss of bowel or bladder function with a second seizure. He was given dose of Keppra in the ER and [facility] us [facility] to accept him in transfer therefore he will be admitted to this facility. He relates history that he has had nausea and vomiting over the last few days. His symptoms began on Tuesday, approximately 3 days ago where he vomited at least 10 times. He has been able to keep anything down. He denies any blood in his emesis, but a few days ago had black stool. He has not been able to keep anything down so he really has not had a bowel movement over the last few days. In the last 24 hours he has vomited perhaps 3 times but is more dry heaving than anything else. He got up to go to the bathroom, and vomited, then when he went back to bed, he felt like he was having sleep paralysis and could feel himself shaking. His states that she went into the bedroom and found him convulsing and contracted and this lasted at least 30 seconds while she was present. Neurologic History Woke up in the middle of the night and choking a little, sat up and stated he felt delusional. Tried to lay back down and that is last thing he remembers. When woke up paramedics were at his house. Delusional described as thoughts are racing. Has history of night terrors. Went back to sleep and everything seemed ok. The was in another room when he actually screamed out and was shaking, had bitten his tongue, eyes open both arms were hyperextended and legs tonically contracted and he was shaking. Lasted 30-60sec long. He did control lose of bladder. Pupils were dilated and he was very confused afterward. A similar event happened when he was in the ED. He was talking then suddenly turned to the R, had an ictal cry and then had the tonic contraction and had the shaking as well. Lasted 30-60sec and afterwards was confused again. For the one in the ED, he states he tasted and smelled something burning prior. Never had anything like this happen in the past. Has had panic attacks but nothing like this. Has had blackouts in college but no noted seizure and usually when his environment is overstimulated. Has panic attacks usually while driving on the highway. Does not black out with panic attacks but can forget things. Father has ho epilepsy, no history of febrile seizure, no history meningitis/encephalitis, no ho stroke. Does have history TBI. No new medications in the last 4 weeks, had a colonoscopy 4 weeks ago but no daily meds. Has been very sick Sat morning with nausea/vomitting Sat morning and was still vomitting then. Currently feels better after IV meds. May or may not take trazodone for PTSD for sleep. No medications that has been stopped. No major dietary changes. [facility] Medical History Anxiety Bite from insect Chronic cough Diarrhea Dysphagia Encounter for screening for COVID-19 Gastric reflux History of GI bleed Hypertension Leg cramps Non-smoker Panic disorder PTSD (post-traumatic stress disorder) Rectal bleeding Home Medications multivitamin 1 tab PO DAILY 03/10/23 [History Last Taken Unknown] hydroxyzine HCl 25 mg tablet 25 mg PO Q8H PRN anxiety 03/17/23 [History Last Taken Unknown] Allergy/AdvReac Type Severity Reaction Status Date / Time amoxicillin Allergy Unknown Verified 05/09/23 06:12 Family History (Updated 05/09/23 @ 15:[address] Micha Noel MD) Father Seizures Surgical History S/P wisdom tooth extraction Social History Smoking Status: Never smoker alcohol intake: never Vital Signs Vital Signs Vital Signs: 05/09/23 14:51 05/09/23 15:31 05/09/23 21:39 Temperature 98.7 F Temperature Source Oral Pulse Rate 92 101 H Respiratory Rate 17 Respiratory Effort Normal Non-Labored Respiratory Depth Normal Respiratory Pattern Normal Blood Pressure 139/95 H Blood Pressure Mean 109 Blood Pressure Source Monitor Blood Pressure Position Semi-Fowlers Blood Pressure Location Right Arm Pulse Ox 98 98 Oxygen Delivery Method Room Air Room Air Fraction of Inspired Oxygen (FIO2) 21 05/09/23 20:50 05/09/23 22:00 05/10/23 02:50 Temperature 98.4 F 98.2 F Temperature Source Oral Oral Pulse Rate 95 86 Respiratory Rate 18 14 Respiratory Effort Normal Non-Labored Respiratory Depth Normal Respiratory Pattern Normal Blood Pressure 137/100 H 127/87 H Blood Pressure Mean 112 100 Blood Pressure Source Monitor Monitor Blood Pressure Position Semi-Fowlers Semi-Fowlers Blood Pressure Location Right Arm Right Arm Pulse Ox 100 99 Oxygen Delivery Method Room Air Room Air Room Air Fraction of Inspired Oxygen (FIO2) 05/10/23 04:15 05/10/23 08:50 Temperature 97.9 F Temperature Source Oral Pulse Rate 84 Respiratory Rate 14 Respiratory Effort Normal Non-Labored Respiratory Depth Normal Respiratory Pattern Normal Blood Pressure 122/83 H Blood Pressure Mean 96 Blood Pressure Source Monitor Blood Pressure Position Semi-Fowlers Blood Pressure Location Right Arm Pulse Ox 98 Oxygen Delivery Method Room Air Room Air Fraction of Inspired Oxygen (FIO2) Weight Weight: 81.5 kg Body Mass Index (BMI) 28.1 Physical Exam Narrative -? General: Laying comfortably in bed; in no acute distress. -? HENT: Normal oropharynx and mucosa. Normal external appearance of ears and nose. Exophthalmos. -? Neck: Supple, no pain or tenderness -? CV:? No peripheral edema. -? Pulmonary:? Normal respiratory effort. -? Ext: No cyanosis, edema, or deformity -? Skin: No rash. Normal palpation of skin.? -? Musculoskeletal: full range of motion; no joint tenderness. Normal digits and nails by inspection. No clubbing. -? NEURO: -? Mental Status: The patient was alert and oriented to time, place, and person. Normal recent/remote memory, concentration, and general fund of knowledge. -? Language: speech is clear,.? Naming, repetition, fluency, and comprehension intact. -? Cranial Nerves: PERRL 4 mm/brisk. EOMI, visual alejandro full, no facial asymmetry, facial sensation diminished at R V2, hearing intact, tongue midline, no evidence of atrophy or fibrillations.Tongue with large bruise on the R side -? Motor: normal bulk, tone, and strength throughout. No pronator drift or satelliting. Upper and lower extremities equal bilaterally. -? Detailed strength exam as performed by the nurse/TRISHA and witnessed by the physician: R L SA 5 5 EE 5 5 EF 5 5 WE WF Community Development Worker 5 5 HF 5 5 KE 5 5 KF 5 5 DF 5 5 PF 5 5 -? Sensation- Intact to light touch bilaterally in arms and legs -? Coordination: No dysmetria on [id number], finger follow finger or [id number]. -? Gait- Gait initiation was normal. Narrow base with good heel strike and stride length was observed during ambulation. Turns were in stride. Lab / Micro Data 05/10/23 05:25 05/10/23 05:25 Labs: Laboratory Results - last 24 hr 05/09/23 11:00: Lactic Acid 2.3 H* 05/10/23 05:25: WBC 5.8, RBC 4.08 L, Hgb 13.8, Hct 38.4 L, MCV 94.1 H, MCH 33.8 H, MCHC 35.9, RDW Std Deviation 41.0, RDW Coeff of Cecily 12.0, Plt Count 154, MPV 9.9, Immature Gran % (Auto) 0.500, Neut % (Auto) 61.3, Lymph % (Auto) 25.2, [place] % (Auto) 10.9 H, Eos % (Auto) 1.6, Baso % (Auto) 0.5, Absolute Neuts (auto) 3.6, Absolute Lymphs (auto) 1.46, Nucleated RBC % 0, Sodium 137, Potassium 3.2 L, Chloride 102, Carbon Dioxide 27.0, Anion Gap 8, BUN 9, Creatinine 0.59 L, Estim Creat Clear Calc 163.38, Est GFR (MDRD) Af Amer 200, Est GFR (MDRD) Non-Af 165, BUN/Creatinine Ratio 15.2, Glucose 90, Calcium 8.3 L, Total Bilirubin 2.40 H, AST 198 H, ALT 258 H, Alkaline Phosphatase 69, Total Protein 7.0, Albumin 3.7, Globulin 3.3, Albumin/Globulin Ratio 1.1 05/10/23 12:20: Urine Opiates Screen NEGATIVE, Urine Methadone Screen NEGATIVE, Ur Barbiturates Screen NEGATIVE, Ur Phencyclidine Scrn NEGATIVE, Ur Amphetamines Screen NEGATIVE, MDMA (Ecstasy) Screen NEGATIVE, U Benzodiazepines Scrn NEGATIVE, Urine Cocaine Screen NEGATIVE, U Cannabinoids Screen POSITIVE H, Ur Drug Screen Comment Imagaing Radiology Impression Brain MRI 05/10/23 05:55 IMPRESSION: Negative MRI brain without and with intravenous contrast. Electronically Signed: Mansoor Meade MD at 10:03 EST Reading Location ID and State: [address] [place] [address] , Service support , Active Medications Active Medications Active Medications: Current Medications Generic Name Dose Route Start Last Admin Trade Name Freq PRN Reason Stop Dose Admin Acetaminophen 1,000 mg 05/09/23 21:16 05/09/23 22:19 Acetaminophen 500 Mg Tablet PO 1,000 mg Q8H PRN PRN Administration Pain Score 1-10 Levetiracetam 1,000 mg in 100 mls @ 400 mls/hr 05/09/23 22:00 05/10/23 10:16 IV Infused Q12 MARCELLO Infusion Sodium Chloride 250 mls @ 15 mls/hr 05/09/23 15:39 IV .[id number] PRN Additional IVPB Infusion Sodium Chloride 250 mls @ 15 mls/hr 05/09/23 15:39 IV .[id number] PRN Saline Flush Sodium Chloride 10 - 40 ml 05/09/23 15:39 0.9% Saline Lock 10 Ml Syringe IV UD PRN SALINE FLUSH
--- NOTE | 2023-05-10 14:42 | PCM.DC ---
Discharge Instructions Diet Discharge Diet: No restrictions Activity Discharge Activity: May Not Drive Dressing / Incision Call your doctor if you observe: Fever of 101 or Higher, Shortness of breath, Dizziness, Fainting spells, Swelling in the ankles, Chest pain and Increased palpitations (irregular heartbeat) Follow Up Care Test Results: Test results from this visit will be discussed in further detail at your follow-up appointment, if applicable. Discharge Plan Admission Admit Date/Time: 05/09/23 14:02 Attending Provider: Micha Noel Primary Care Provider: Care Physician,No Primary Consulting Providers: Gudelia Darby; Natasha Vazquez; America Diallo; Rudolph Tarango; Tara Banks; EMMA ROTHMAN; Suze Prasad; Dee Lozano; Aiden Stephens; Lily Cohen; Dixon Fernandez; Camryn Bravo; Willow Fang; Anthony Seaman; Mireya Velasco; Joshua Leonardo; Paco Cordoba; Eric Garcia; Lionel Soliz; Wm Phan; Elfego Levi; Calixto Marquez; Peter Narayan; Kerline Case; Marga Cisneros Instructions Patient Instructions: ED SEIZURE Alcohol Withdrawal Additional Instructions / Restrictions: F/u with a neurologist at the [facility] as an outpatient Discharge Orders/Prescriptions Prescriptions: New levetiracetam 750 mg tablet 750 mg PO BID 30 Days Qty: 60 0RF Continued multivitamin Tablet 1 tab PO DAILY hydroxyzine HCl 25 mg tablet 25 mg PO Q8H PRN (Reason: anxiety) Referrals / Follow Up: Care Physician,No Primary [Primary Care Provider] - Doctor,Your [Non-Staff] - 1-2 Weeks Disposition Disposition (needs filled in before D/C Order can be placed): Home, Self Care
--- NOTE | 2023-05-10 14:45 | CASEMGMT ---
Addendum entered by Melanie Nazario 05/10/23 20:23: 3 PM: Call placed to Nila @ [facility] in regards to discharge plan, as she had called earlier, inquiring about discharge plan and if pt [facility]. She was made aware plans are for pt to discharge today, pending EEG results. Original Note: RN?CM?TEMPERING KILN TENDER?CM?to room to meet with patient for initial transition planning/care coordination?assessment.?RN?CM?introduced self and role at [facility].? Pt voices understanding and consents to?assessment?at this time.? Pt sitting on edge of bed in no distress at this time.?Family @ bedside and pt agreeable to them being present during assessment. Pt is A/O at this time and answers all questions appropriately.?? Care providers, pharmacy, and demographics verified/updated at this time. PCP: [facility] Specialists: therapist @ [facility] Preferred Pharmacy: [facility] Retail @ discharge. Otherwise, pt gets all medications through [facility] Insurance: [facility] benefits only Prescription Benefit:?[facility] LNOK: , Z[place] Living Arrangements: Lives w/his in 2-story home. Independent. Transportation:?Pt, family DME: ? Denies using any DME and denies needs.? Pt states he uses no DME, but he [facility]. HHC/SNF: No hx of either. No needs identified. Pt wishes to return home and states has no concerns with going home at time of discharge.?CM?to follow for any discharge planning/needs.? Pt voices no concerns/needs at this time.? Advised pt and family to ask for?CM?if any further questions/concerns/needs arise.? Voices understanding. PLAN:??Home w/family support and discharge plans in place. Sulema HAYESN?RN?CM
--- NOTE | 2023-05-10 14:48 | DS.PCM_ITS ---
Providers Date of Admission: 05/09/23 Primary Care Physician: No Primary Care Phys Consultations 05/09/23 14:50 Consult: Tele-Neurology Routine Consulting Provider: [facility] Reason for Consult: New onset seizure with famhx EMERGENT Consult: No MD Notified: Yes Date Notified: 05/09/23 Time Notified: 14:13 Method of Notification: Answering Service Nursing Unit Staff Notify [facility] of Tele-Neurology Consult: Yes Reason For Visit: SEIZURES Diagnosis Discharge Diagnosis (1) Seizures: Status: Acute Code(s): R56.9 - Unspecified convulsions Medications at Discharge Home Medications multivitamin 1 tab PO DAILY 03/10/23 hydroxyzine HCl 25 mg tablet 25 mg PO Q8H PRN anxiety 03/17/23 levetiracetam 750 mg tablet 750 mg PO BID 30 days #60 tabs 05/10/23 Hospital Course Operations None Procedures Electroencephalogram Summary of Care Provided Minutes Spent on Discharge: 39 Hospital Course: Per HPI: THERESA JACOBSON, is a 37 M who presents to the hospital with 2 seizures today. Both seizures were witnessed 1 was at home and the other 1 was here in the ER. He says that his father has a history of seizures but he has never had seizures prior to today. He does admit to using alcohol but states he is never gone through withdrawal and his last drink was 4 days ago because he was not feeling well with some nausea and vomiting he is not significantly dehydrated and does not have major electrolyte derangements to consider that for cause of his seizures. His LFTs are little bit elevated which could be due to his alcohol use, his lactic acid in the ER was elevated which is likely in reaction to his seizures. According to his she was getting ready to go hunting today when she heard him scream and when she went up to the bedroom he was contracted on his side shaking and having drool out of his mouth. She did note that he had a loss of bladder function at that time and the seizure lasted anywhere between 30 seconds and a minute and then he recovered but was altered for a period of time afterwards where she noticed that he is just could not focus. They brought him to the emergency room where he had another seizure that was the same as the one he had at home he did not have a loss of bowel or bladder function with a second seizure. He was given dose of Keppra in the ER and [facility] to [facility] him in transfer therefore he will be admitted to this facility. Hospital Course: 1. New onset seizure?37-year-old male presented to the hospital for new onset seizure x 2. There is a family history in his father who had seizures but is the first time he ever had seizures. He did have a recent viral illness with nausea and vomiting and poor p.o. intake though his electrolytes were unre markable and his renal function was normal. There is some alcohol use but nothing that they would consider significant. MRI was unremarkable and EEG is still pending however neurology evaluated him and felt that he can be discharged on 750 mg of Keppra p.o. twice daily with outpatient follow-up and that he is not to drive for 3 to 6 months. I discussed with him and his family the plan for discharge today he expressed understanding of the risk benefits going home and would like to go home today. Recommend that he follow-up with his PCP in 3 to 5 days and that [facility]. Of note prelim EEG read is normal. 2. Elevated LFTs?unclear as to the etiology of they are improving this could be related to a viral illness versus alcohol use I do recommend outpatient monitoring and repeat blood work in a week to make sure that the elevated LFTs continue to resolve. Physical Exam Narrative General: Alert, Oriented x3, Cooperative, No apparent distress HEENT: Atraumatic, PERRLA, EOMI, Normocephalic Oral: Moist Mucosa Neck: Supple, No JVD Lungs: Clear to auscultation, Normal air movement, No rhonchi, No wheeze, No rales Cardiovascular: Regular rate, Regular Rhythm, Normal S1, Normal S2, No murmurs Abdomen: Soft, Non Tender, Non-Distended, No Hepato-splenomegaly Extremities: No edema, Capillary Refill Less than 3 Seconds Skin: No rashes, No breakdown Musculoskeletal: No Tenderness to Palpation of Joints or Extremities Neurological: Cranial nerves II-XII grossly intact, Motor Exam 5/5 strength throughout, Sensory exam intact to light touch and pain Psych/Mental Status: Normal Affect, Appropriate Weight / BMI Weight Weight: 179 lb 10.828 oz Body Mass Index (BMI) 28.1 ABG / Lab / Microbiology Data 05/10/23 05:25 12/26/23 05:25 Laboratory: Laboratory Results - last 24 hr 05/10/23 05:25: WBC 5.8, RBC 4.08 L, Hgb 13.8, Hct 38.4 L, MCV 94.1 H, MCH 33.8 H, MCHC 35.9, RDW Std Deviation 41.0, RDW Coeff of Cecily 12.0, Plt Count 154, MPV 9.9, Immature Gran % (Auto) 0.500, Neut % (Auto) 61.3, Lymph % (Auto) 25.2, Baxter % (Auto) 10.9 H, Eos % (Auto) 1.6, Baso % (Auto) 0.5, Absolute Neuts (auto) 3.6, Absolute Lymphs (auto) 1.46, Nucleated RBC % 0, Sodium 137, Potassium 3.2 L, Chloride 102, Carbon Dioxide 27.0, Anion Gap 8, BUN 9, Creatinine 0.59 L, Estim Creat Clear Calc 163.38, Est GFR (MDRD) Af Amer 200, Est GFR (MDRD) Non-Af 165, BUN/Creatinine Ratio 15.2, Glucose 90, Calcium 8.3 L, Total Bilirubin 2.40 H, AST 198 H, ALT 258 H, Alkaline Phosphatase 69, Total Protein 7.0, Albumin 3.7, Globulin 3.3, Albumin/Globulin Ratio 1.1 05/10/23 12:20: Urine Opiates Screen NEGATIVE, Urine Methadone Screen NEGATIVE, Ur Barbiturates Screen NEGATIVE, Ur Phencyclidine Scrn NEGATIVE, Ur Amphetamines Screen NEGATIVE, MDMA (Ecstasy) Screen NEGATIVE, U Benzodiazepines Scrn NEGATIVE, Urine Cocaine Screen NEGATIVE, U Cannabinoids Screen POSITIVE H, Ur Drug Screen Comment Radiography Diagnostic Testing: Radiology Impression Brain MRI 05/10/23 05:55 IMPRESSION: Negative MRI brain without and with intravenous contrast. Electronically Signed: Mansoor Meade MD at 10:03 EST , D/C Instructions Discharge Diet: No restrictions Call your doctor if you observe: Fever of 101 or Higher, Shortness of breath, Dizziness, Fainting spells, Swelling in the ankles, Chest pain and Increased palpitations (irregular heartbeat) Meaningful Use Info Meaningful Use Diagnoses (Choose all that apply): None applicable Discharge Plan Admission Admit Date/Time: 05/09/23 14:02 Attending Provider: Micha Noel Primary Care Provider: Care Physician,No Primary Consulting Providers: Gudelia Darby; Natasha Vazquez; America Diallo; Rudolph Tarango; Tara Banks; EMMA ROTHMAN; Suze Prasad; Dee Lozano; Aiden Stephens; Lily Cohen; Dixon Fernandez; Camryn Bravo; Willow Fang; Anthony Seaman; Mireya Velasco; Joshua Leonardo; Paco Cordoba; Eric Garcia; Lionel Soliz; Wm Conde; Elfego Levi; Calixto Marquez; Peter Narayan; Kerline Case; Marga Cisneros Instructions Patient Instructions: ED SEIZURE Alcohol Withdrawal Additional Instructions / Restrictions: F/u with a neurologist at the [facility] as an outpatient Discharge Orders/Prescriptions Prescriptions: New levetiracetam 750 mg tablet 750 mg PO BID 30 Days Qty: 60 0RF Continued multivitamin Tablet 1 tab PO DAILY hydroxyzine HCl 25 mg tablet 25 mg PO Q8H PRN (Reason: anxiety) Referrals / Follow Up: Care Physician,No Primary [Primary Care Provider] - Doctor,Your [Non-Staff] - 1-2 Weeks Disposition Disposition (needs filled in before D/C Order can be placed): Home, Self Care Charges/Coding Visit Charges Inpatient E&M: 97066 Disch Hosp >30min
--- OUTSIDE RECORDS SUMMARY | 2023-05-11 17:24 | XMS RPT_ITS ---
Author Name Auto Generated Organization [facility] [employer]OBLEMS No Problem Records Found PROCEDURES No Procedure Records Found RESULTS ALLERGIES No Allergies Records Found ENCOUNTERS No Encounter Records Found PAYERS No Payer Records Found
== END 2023-05-10 16:24 | disposition home or self-care (01) | DRG 101 ==
LOC: ED 08:40 → PCU 15:29
PROVIDERS: Admitting Provider Family Medicine; Emergency Provider Emergency Medicine; Visit Provider Family Medicine
DX: R56.9 Unspecified convulsions (principal); I10 Essential (primary) hypertension; R79.89 Other specified abnormal findings of blood chemistry; Z87.820 Personal history of traumatic brain injury; Z82.0 Family history of epilepsy and other diseases of the nervous system
CPT/HCPCS: 36415; 70450; 70553; 80053; 80307; 83605; 83690; 84146; 84484; 85025; 93005; 94762; 95819; 97802; 99283; A9575; J7030; J7040; A4216

== ENCOUNTER 2023-09-27 04:36 | Emergency (ER) | payer OTHER, SELFPAY ==
--- NOTE | 2023-09-27 05:33 | EX.ED.DYSGE1 ---
HPI History of Present Illness Informant: patient and spouse/S.O. Narrative Narrative: 36-year-old male presents with rash that he woke up with in the middle of the night. The rash is all over and it is asymptomatic. No pain or pruritus. No oral symptoms. No syncope or dyspnea. He started a new medication about 5 days ago, lamotrigine. It is for seizures that he started having in April. He was originally put on Keppra, it has helped, he has had an occasional breakthrough seizure the last 1 was over a month ago, but he requested to be put on a different medication because of sexual performance issues, so this past week his doctor is weaning him on lamotrigine and off of Keppra. He did not have any issues with the Keppra since taking it for the last several months although he did stop temporarily. No other new medications. Only other symptoms he has had is 2 days of intractable vomiting and difficulty keeping fluids down. Denies pain or diarrhea or fever/chills. He and his doctor think the seizure disorder is either related to family history of epilepsy, TBI he had in the overseas, or both. [facility] Medical History Panic disorder PTSD (post-traumatic stress disorder) Anxiety Bite from insect History of GI bleed Gastric reflux Non-smoker Chronic cough Leg cramps Hypertension Dysphagia Diarrhea Rectal bleeding Encounter for screening for COVID-19 Home Medications multivitamin 1 tab PO DAILY 03/10/23 [History Last Taken Unknown] hydroxyzine HCl 25 mg tablet 25 mg PO Q8H PRN anxiety 03/17/23 [History Last Taken Unknown] levetiracetam 750 mg tablet 750 mg PO BID 30 days #60 tabs 05/10/23 [Rx Last Taken Unknown] Allergy/AdvReac Type Severity Reaction Status Date / Time amoxicillin Allergy Unknown Verified 05/09/23 06:12 Family History (Updated 05/09/23 @ 15:[address] Micha Noel MD) Father Seizures Surgical History S/P wisdom tooth extraction Social History Smoking Status: Never smoker alcohol intake: never ROS ROS ED Constitutional Constitutional ED: Denies chills or fever(s) Eyes Eyes: Denies change in vision or diplopia ENT ENT ED: Denies mouth lesions, mouth pain, rhinorrhea or sore throat Cardiovascular Cardiovascular: Denies chest pain or palpitations Respiratory/Chest Respiratory/Chest: Denies cough or dyspnea Gastrointestinal Gastrointestinal: Reports nausea and vomiting; Denies abdominal pain or diarrhea Genitourinary Genitourinary ED: Denies dysuria or hematuria Musculoskeletal Musculoskeletal: Denies back pain or neck pain Integumentary Reports rash; Denies abscess Neurologic Neurologic: Denies headache(s), paresthesias or weakness Psychiatric Psychiatric: Denies suicidal ideation or suicidal thoughts EXAM Physical Exam Narrative Exam Narrative: Normal exam except for mild tachycardia and diffuse blanching macular erythematous nontender rash. No bullae. No sloughing. No tenderness. No oral mucous membrane lesions. No petechia, purpura, ecchymoses. Lungs clear. Const Positive well nourished and well developed General Appearance ED: well developed and NAD HEENT Reports moist mucous membranes HEENT Narrative: No oral MM lesions. normocephalic and atraumatic Eyes PERRL and EOMs intact bilaterally Neck full ROM and supple Chest Wall palpation of chest normal Resp normal respiratory effort and clear to auscultation bilaterally Cardio regular rate, regular rhythm and no murmurs Rate: tachycardic GI non-tender and non-distended Auscultation: normoactive bowel sounds Palpation: soft Back/Spine no CVA tenderness General Back: other FROM Extremity normal to inspection General Extremety ED: Negative for edema, pulses abnormal or tenderness General Extremity: Negative for edema or pulses abnormal Neuro oriented x3, CN's II-XII intact bilaterally and no sensory deficits noted Sensorium / Orientation: awake and alert Motor Exam: strength 5/5 throughout MDM MDM MDM Narrative Medical decision making narrative: Patient requesting IV fluids and I think that is reasonable, given a liter of IV fluids along with IV Zofran and Solu-Medrol 125. This rash is inconsistent with Hayden-Francisco syndrome. I think this is a drug rash, and I still would discontinue the lamotrigine and follow-up, and I will put him on a short course of steroids for that in addition to a prescription for Zofran. Discharge Plan Triage ED Provider: Asif Pelaez Dx/Rx/DC Orders Clinical Impression: Drug-induced skin rash, Acute gastritis without bleeding Instructions: ED Drug Reaction, Other Prescriptions: No Action multivitamin Tablet 1 tab PO DAILY hydroxyzine HCl 25 mg tablet 25 mg PO Q8H PRN (Reason: anxiety) levetiracetam 750 mg tablet 750 mg PO BID 30 Days Qty: 60 0RF [facility] [[facility] Provider[facility] - Activity Restrictions/Additional Instructions: (Patient seen during downtime and documented later, paper discharge prescription and instructions given) Print Language: Guatemalan Disposition Disposition: Home, Self Care
== END 2023-09-27 06:16 | disposition home or self-care (01) ==
PROVIDERS: Emergency Provider Emergency Medicine; Visit Provider Emergency Medicine
DX: L27.0 Generalized skin eruption due to drugs and medicaments taken internally (principal); G40.909 Epilepsy, unspecified, not intractable, without status epilepticus; K29.00 Acute gastritis without bleeding; K21.9 Gastro-esophageal reflux disease without esophagitis; I10 Essential (primary) hypertension
CPT/HCPCS: J7030; J2405

== ENCOUNTER → 2024-05-01 | Outpatient (CLI) | payer OTHER, SELFPAY | END | disposition home or self-care (01) | LOC: PSN 09:55 | PROVIDERS: Referring Provider Chiropractor; Visit Provider Chiropractor | DX: J45.998 Other asthma (principal) | CPT/HCPCS: 94060; 94726; 94729 ==

== ENCOUNTER 2024-07-09 14:44 | Inpatient (IN) | payer OTHER, SELFPAY ==
[2024-07-09] VITALS (13 sets, daily range): BP systolic 147–210; BP diastolic 107–140; PULSE 98–151; RESP 16–20; TEMP 36.6–37; O2SAT 92–100; BMI 27.3; BMI 28.3
--- NOTE | 2024-07-09 14:58 | ED.VIS.CHEST ---
HPI History of Present Illness Chief Complaint: Chest Pain [facility] Medical History Panic disorder PTSD (post-traumatic stress disorder) Anxiety Bite from insect History of GI bleed Gastric reflux Non-smoker Chronic cough Leg cramps Hypertension Dysphagia Diarrhea Rectal bleeding Encounter for screening for COVID-19 Home Medications ?Medication ?Instructions ?Recorded ?Last Taken ?Type multivitamin 1 tab PO DAILY 03/10/23 Unknown History lacosamide 200 mg capsule,extended 200 mg PO BID 07/09/24 Unknown History release 24 hr loperamide 2 mg tablet 2 mg PO QODAY 07/09/24 Unknown History (Anti-Diarrheal (loperamide)) Allergy/AdvReac Type Severity Reaction Status Date / Time amoxicillin Allergy Unknown Verified 05/09/23 06:12 carbamazepine Allergy Rash Verified 07/09/24 14:48 Family History (Updated 05/09/23 @ 15:[address] Micha Noel MD) Father Seizures Surgical History S/P wisdom tooth extraction Social History Smoking Status: Never smoker alcohol intake: never EXAM Physical Exam Const Vital Signs: 07/09/24 14:45 07/09/24 15:45 07/09/24 16:00 Temperature 98.2 F Temperature Source Temporal Pulse Rate 132 H 98 135 H Respiratory Rate 18 17 20 H Blood Pressure 147/107 H 171/122 H Blood Pressure Mean 120 138 Pulse Ox 96 97 97 Oxygen Delivery Method Room Air Room Air 07/09/24 17:00 07/09/24 18:08 07/09/24 18:58 Temperature 97.9 F Temperature Source Pulse Rate 115 H 130 H 120 H Respiratory Rate 17 20 H 16 Blood Pressure 180/124 H 185/120 H Blood Pressure Mean 142 141 Pulse Ox 100 Oxygen Delivery Method MDM MDM MDM Narrative Medical decision making narrative: HISTORY OF PRESENT ILLNESS: 38-year-old male presents with chest pain nausea vomiting. Past medical history significant for panic disorder, PTSD, anxiety,, GI bleed, hypertension. Notes 2 days ago he started having nausea and vomiting. Notes approximately 2 hours prior to arrival he started experiencing chest pain. States he has diffuse abdominal tenderness. Notes he drinks alcohol several days a week. Denies recent cessation of alcohol use. Denies history of abdominal surgery. Denies any family or personal history of ACS or PE. Denies any bleeding diathesis. Denies any diarrhea or melena. Denies any cough fever chills. Denies any sick contacts. Denies any recent travel or hospitalization. Of note the patient's was concerned he may have a breakthrough seizure secondary to not be able to tolerate his nighttime seizure medication. The patient denies recent surgery in the last 4 weeks or immobilization in the last 3 days, denies previous diagnosis of DVT or PE, hemoptysis, unilateral leg swelling or malignancy with treatment the last 6 months or palliative. No estrogen use noted. Patient denies sudden onset of pain, no tearing sensation, no migratory symptoms, no new numbness, weakness or loss of sensation. Patient denies family history or personal history of Connective tissue disorders (Marfan's Syndrome, Abner Danlos etc) REVIEW OF SYSTEMS: Pertinent positives: Chest pain, nausea vomit Pertinent negatives: Syncope, focal neurologic deficits PHYSICAL EXAM: Nursing triage notes reviewed, Vital signs reviewed Constitutional: please see mdm HENT: MMM Eyes: Pupils equal round and reactive to light, Extraocular muscles intact Neck: No stridor, no JVD, full neck ROM Lungs: Clear to auscultation, No wheezing or rales. No increased work of breathing, no conversational dyspnea, no accessory muscle use, no nasal flaring. No respiratory distress noted Heart: Regular rate and rhythm, No murmurs, No rubs and No gallops, 2+ distal pulses (radial, femoral, posterior tibial) in all extremities Abdomen: Soft, there is no appreciable tenderness, no rigidity, rebound or guarding, no obvious peritoneal signs, no palpable pulsatile abdominal masses, no auscultated abdominal bruit : No CVAT Extremities: No edema Neuro: No new focal neurological deficits, cranial nerves II through XII intact, 5/5 strength in all present extremities. Intact sensation to light touch in all present extremities, 2+ reflexes bilateral patella tendons. Skin: No rash or lesions noted MEDICAL DECISION MAKING: Chief Complaint: Chest pain, nausea vomit External records reviewed: Reviewed prior cardiovascular testing Factors affecting care: as per HPI Social determinants of health: none History obtained from others: none Consults: n hospitalist (Dr. Zazueta) [facility] Narrative: Patient was initially tachycardic, hypertensive 147/107, tachycardic, otherwise afebrile. Exam without obvious peritoneal signs. There are no focal cardiopulmonary abnormalities. I considered the following differential diagnosis: ACS, arrhythmia, dehydration, acute pancreatitis, gastritis, Boerhaave syndrome, enteritis or, PE I obtained a broad lab and imaging workup to further elucidate etiology of patient's complaints. I initially resuscitated the patient 1 L normal saline, 15 mg IV Toradol, 20 g IV Pepcid, 4 mg IV Zofran and 200 mg of IV lacosamide (home seizure medication) ALL IMAGES (IF OBTAINED) HAVE BEEN PERSONALLY REVIEWED AND INTERPRETED BY MYSELF. EKG with sinus tachycardia rate 113, normal axis, prolonged QT interval 482, no obvious STEMI D-dimer elevated making VTE more likely CBC leukocytosis suggestive of systemic elevation, elevated hemoglobin, suggestive of hemoconcentration, no thrombocytopenia BMP without evidence of significant electrolyte abnormalities, no anion gap, no acute kidney injury. LFTs with elevation in AST and ALT, this is mild, normal bilirubin High-sensitivity troponin is negative, no evidence of myocardial ischemia Urinalysis shows no evidence of urinary inflammation suggestive of UTI CT of the chest shows no evidence of acute pancreatitis Lipase elevated consistent with acute pancreatitis CT scan of the abdomen pelvis was no evidence of obvious perforation or obstruction it is consistent with acute pancreatitis I have personally reviewed the patient's chest x-ray. Chest x-ray is unremarkable for pulmonary edema, pneumothorax, pneumonia or focal cardiopulmonary abnormality. COVID flu RSV negative The synthesis of the patient's history, physical exam, labs images suggest likely acute pancreatitis. Given the patient's report of drinking most days of the week I suspect this may be alcohol use pancreatitis. CT scan showed no evidence of gallstones. Discussed case with hospitalist who agreed to admit the patient to undergo further evaluation and treatment. Dr. Garnett thought To this the patient's vital signs could be suggestive of acute alcohol withdrawal. He received a dose of Ativan here in emergency department. Alcohol level and urine drug screen sent and are pending at this time. Patient be admitted to the PCU. The patient and/or family, caregivers express understanding. The patient and/or family, caregivers agrees with the plan. Shared decision making: I will have a discussion with the patient and or visitors regarding risk/benefits of further testing or admission. They will be made aware of of the risk/benefits inherent in this decision they will be given the opportunity to voice understanding. Total critical care time today provided was at least 0 minutes. This excludes separately billable procedures. Critical care time (if documented) is secondary to the patient having high probability of clinically significant/life threatening deterioration in the patient's condition which required my urgent intervention. Impression: 1. Chest pain 2. Nausea vomiting 3. Acute pancreatitis 4. Alcohol abuse Dispo: admit to PCU This note was generated with ZoomInfo dictation software. It may contain incorrect words, spelling, and punctuation that were not noted in review of the chart prior to signing. Lab Data Labs: Laboratory Results - last 24 hr 07/09/24 07/09/24 07/09/24 14:55 16:45 19:25 WBC 17.8 H RBC 5.74 Hgb 19.8 H* Hct 53.9 MCV 93.9 MCH 34.5 H MCHC 36.7 H RDW Std Deviation 41.1 RDW Coeff of Cecily 11.9 Plt Count 246 MPV 9.6 Immature Gran % (Auto) 2.100 H Neut % (Auto) 78.4 H Lymph % (Auto) 10.9 L [place] % (Auto) 7.5 Eos % (Auto) 0.1 Baso % (Auto) 1.0 Absolute Neuts (auto) 14.0 H Absolute Lymphs (auto) 1.94 Nucleated RBC % 0 Diff Path Review May foll D-Dimer Quant (PE/DVT) 1.39 H* Sodium 138 Potassium 3.6 Chloride 98 Carbon Dioxide 27.0 Anion Gap 13 BUN 6 L Creatinine 0.67 L Estim Creat Clear Calc 142.50 Est GFR (MDRD) Af Amer 172 Est GFR (MDRD) Non-Af 142 BUN/Creatinine Ratio 8.9 L Glucose 151 H Calcium 9.4 Total Bilirubin 1.00 AST 144 H ALT 158 H Alkaline Phosphatase 97 Troponin I High Sens 11 Total Protein 8.3 H Albumin 4.8 Globulin 3.5 Albumin/Globulin Ratio 1.4 Lipase 1310 H Urine Color Yellow Urine Clarity Clear Urine pH 6.5 Ur Specific Starke 1.010 Urine Protein 100 H Urine Glucose (UA) Normal Urine Ketones 15 H Urine Occult Blood 10 H Urine Nitrite Negative Urine Bilirubin Negative Urine Urobilinogen Normal Ur Leukocyte Esterase Negative Urine RBC 0-5 SEEN Urine WBC 0-5 SEEN Ur Squamous Epith Cells 0-5 SEEN Urine Bacteria 0 SEEN Hyaline Casts 0-5 SEEN Urine Mucus 0 SEEN Urine Opiates Screen NEGATIVE Urine Methadone Screen NEGATIVE Ur Barbiturates Screen NEGATIVE Ur Phencyclidine Scrn NEGATIVE Ur Amphetamines Screen NEGATIVE MDMA (Ecstasy) Screen NEGATIVE U Benzodiazepines Scrn NEGATIVE Urine Cocaine Screen NEGATIVE U Cannabinoids Screen POSITIVE H Ur Drug Screen Comment Radiography Diagnostic Testing: Clinical Impression(s) from Imaging Studies Chest X-Ray 07/09/24 15:50 IMPRESSION: No radiographic evidence of acute cardiopulmonary disease Reading Location: [facility] Abdomen/Pelvis CT 07/09/24 16:30 IMPRESSION: Extensive peripancreatic fluid noted with questionable area of hypoenhancement of the parenchyma seen within the pancreatic neck. Correlate with laboratory values for acute pancreatitis. Consider further evaluation with MRI using pancreas protocol as clinically indicated to exclude a lesion in this area. Intramural fatty deposition is noted in the colon. This nonspecific finding can be seen in chronic inflammation or inflammatory bowel disease. Reading Location: [id number] Chest CTA 07/09/24 16:30 IMPRESSION: 1. No CT evidence of acute pulmonary embolism 2. Acute pancreatitis 3. Small hiatal hernia One or more dose reduction techniques were used (e.g., Automated exposure control, adjustment of the mA and/or kV according to patient size, use of iterative reconstruction technique). Reading Location: [facility] Discharge Plan Triage Chief Complaint: Chest Pain ED Provider: Walker Deal Dx/Rx/DC Orders Prescriptions: No Action multivitamin Tablet 1 tab PO DAILY lacosamide 200 mg capsule,extended release 24hr 200 mg PO BID loperamide [Anti-Diarrheal (loperamide)] 2 mg tablet 2 mg PO QODAY [facility] [Primary Care Provider] - Print Language: Persian
--- NOTE | 2024-07-09 15:10 | EKG12_ITS ---
Test Reason : Blood Pressure : */* mmHG Vent. Rate : 113 BPM Atrial Rate : 113 BPM P-R Int : 170 ms QRS Dur : 102 ms QT Int : 352 ms P-R-T Axes : 60 67 29 degrees QTcB Int : 482 ms Sinus tachycardia can not rule out Right atrial enlargement Borderline ECG Reconfirmed by Jorge A Dhillon ([id number]), makeup editor AMY MONTENEGRO ([id number]) on 07/11/2024 8:17:27 AM Referred By: Rc Carrillo Confirmed By: Jorge A Dhillon
[2024-07-09] MEDS: Ketorolac 15 MG/ML Vial IV (15:23)
[2024-07-09] MEDS: Famotidine 200 MG/20 ML MDV 20 MG in 0.9% Normal Saline (Pres. free 8 ML 300 MG IV (15:24)
[2024-07-09] MEDS: Ondansetron 4 MG/2 ML Vial IV ×2 (15:24→22:05)
[2024-07-09] MEDS: 0.9% Normal Saline (1000mL) 1,000 ML 1000 ML IV (15:24)
[2024-07-09] MEDS: Lacosamide 200 MG in 0.9% Normal Saline (50mL Bag) 50 ML 100 MG IV ×2 (15:39→22:49)
--- NOTE | 2024-07-09 15:50 | RAD_ITS ---
PROCEDURE: CHEST 1 VIEW (PORTABLE) REASON FOR EXAM: Chest pain TECHNIQUE: Frontal view of the chest. COMPARISON: None. FINDINGS: The heart size is normal. The mediastinal contour is unremarkable. The lungs are clear. The bones are unremarkable. RAD/Chest 1 View (Portable) IMPRESSION: No radiographic evidence of acute cardiopulmonary disease Reading Location: [facility]
[2024-07-09 16:09] LABS: D-Dimer Quantitative (DVT/PE) 1.39 FEU/ug/m (0.27-0.49)
--- NOTE | 2024-07-09 16:30 | CT_ITS ---
PROCEDURE: CTA CHEST W/WO CONTRAST REASON FOR EXAM: Chest pain, elevated D-dimer TECHNIQUE: CTA imaging of the chest with intravenous contrast. 3D reconstructions. COMPARISON: None. FINDINGS: Hardware: None. Lymph nodes: No mediastinal hilar or axillary lymphadenopathy. Heart: Normal heart size. No pericardial effusion. RV/LV Diameter Ratio: N/A Thoracic Aorta: No thoracic aortic aneurysm or dissection. Pulmonary Vessels: No evidence of acute pulmonary emboli through the major subsegmental branches. Most Proximal Level of Embolus (if embolus present): N/A Lungs and Airways: The lungs are normally expanded and clear. Pleura: No pleural effusion. No pneumothorax. Upper Abdomen: Fat stranding and fluid about the pancreas. Bones: Bone windows are unremarkable. Other: Hernia: Small hiatal hernia CT/CTA Chest W/WO Contrast IMPRESSION: 1. No CT evidence of acute pulmonary embolism 2. Acute pancreatitis 3. Small hiatal hernia One or more dose reduction techniques were used (e.g., Automated exposure contr ol, adjustment of the mA and/or kV according to patient size, use of iterative reconstruction technique). Reading Location: [facility]
--- NOTE | 2024-07-09 16:30 | CT_ITS ---
EXAM: ABDOMEN/PELVIS W IV CONT ONLY CLINICAL HISTORY: Vomiting. COMPARISON: None. TECHNIQUE: Helical CT images of the abdomen and pelvis were performed utilizing routine protocol with intravenous contrast material. Multiplanar reformations were obtained. Dose reduction techniques were used including intermediate exposure control (AEC),iterative reconstruction technique, and/or mA and/or KV dose adjustments based on patient's size. FINDINGS: The lung bases are clear. No obvious acute abnormality of the spleen or adrenal glands. Extensive peripancreatic fluid noted with questionable area of hypoenhancement of the parenchyma seen within the pancreatic neck. No pancreatic calcifications are noted. The gallbladder appears unremarkable. Fatty infiltration of the liver. No acute obstructive urinary collecting system calculus. No urinary bladder wall thickening. No hydronephrosis. There is a 2.1 cm right renal cyst. No acute bowel obstruction. No pneumoperitoneum. No CT evidence of acute colonic diverticulitis. Intramural fatty deposition is noted in the colon. No CT evidence of acute appendicitis. The appendix contains an appendicolith versus retained contrast. No lymphadenopathy. Trace pelvic fluid noted. No CT evidence of acute osseous abnormality. CT/Abdomen/Pelvis W IV Cont ONLY IMPRESSION: Extensive peripancreatic fluid noted with questionable area of hypoenhancement of the parenchyma seen within the pancreatic neck. Correlate with laboratory values for acute pancreatitis. Consider further eval uation with MRI using pancreas protocol as clinically indicated to exclude a lesion in this area. Intramural fatty deposition is noted in the colon. This nonspecific finding ca n be seen in chronic inflammation or inflammatory bowel disease. Reading Location: [id number]
[2024-07-09] MEDS: Morphine 4 MG/ML Syringe IV (16:39)
[2024-07-09 16:51] LABS: Bacteria 0 SEEN /hpf (None Seen); Mucous, Urine 0 SEEN /hpf (<or=2+)
[2024-07-09 16:56] LABS: Color, Urine Yellow (Yellow); Glucose, Dipstick Normal (Normal); Ketone-Dipstick 15 mg/dl (Negative); Leukocyte Esterase-Dipstick Negative /ul (Negative); Nitrite-Dipstick Negative (Negative); Occult Blood-Urine 10 /ul (Negative); Protein-Dipstick 100 mg/dl (Negative); Urine Bilirubin Dipstick Negative (Negative); Urine Clarity Clear (Clear); Urine Urobilinogen Normal (Normal); Urine pH 6.5 (5.0 - 8.0)
[2024-07-09 17:02] LABS: ALB/GLOB Ratio 1.4 RATIO (0.9-2.4); AST(SGOT) 144 U/L (15-37); Alanine Aminotransfer ALT/SGPT 158 U/L (16-61); Albumin, Serum 4.8 g/dL (3.2-5.0); Alkaline Phosphatase 97 U/L (45-117); Anion Gap 13 (5-15); BUN 6 mg/dL (7-18); BUN/Creat Ratio 8.9 RATIO (10-20); Calcium,Total 9.4 mg/dL (8.5-10.1); Chloride 98 mmol/L (98-107); Creatinine, Serum 0.67 mg/dL (0.70-1.30); EST Glomerular Filtration Rate 142 mL/min (>60); Est Glom Filt Rate - Afr Amer 172 mL/min (>60); Globulin 3.5 g/dL (2.2-4.2); Glucose 151 mg/dL (74-106); Lipase 1310 U/L (73-393); Potassium 3.6 mmol/L (3.5-5.1); Protein, Total 8.3 g/dL (6.4-8.2); Sodium Level 138 mmol/L (136-145); Troponin-I HS (w/2H Reflex) 11 pg/mL (3.0-78.0)
[2024-07-09] MEDS: HYDROmorphone 0.5 MG/0.5 ML SYRINGE IV ×2 (17:31→23:21)
[2024-07-09 17:49] LABS: Hyaline Cast 0-5 SEEN /lpf (0-5); Red Blood Cells-Urine 0-5 SEEN /hpf (0-5); Squamous Epithelial Cells - UA 0-5 SEEN /hpf (0-5); White Blood Cells 0-5 SEEN /hpf (0-5)
[2024-07-09 17:54] LABS: Absolute Lymphocyte Count 1.94 X10^3/uL (0.83-4.51); Basophil# 0.17 X10^3/uL; Eosinophil# 0.02 X10^3/uL; Eosinophils% 0.1 % (0-5); Hematocrit 53.9 % (40-54); Hemoglobin 19.8 g/dL (13.0-16.5); Lymphocyte # 1.94 X10^3/ul (0.83-4.51); Lymphocyte % 10.9 % (19-41); Mean Corp Hgb Conc 36.7 g/dL (32-36); Mean Corpuscular Hgb 34.5 pg (27.0-32.0); Mean Corpuscular Volume 93.9 fL (80-94); Mean Platelet Vol. 9.6 fl (6.2-12.0); Monocyte# 1.33 X10^3/uL; Monocyte% 7.5 % (0-10); NRBC Flagged by Analyzer 0 % (0-5); Neutrophil # 13.98 X10^3/uL (2.7-7.7); Neutrophil % 78.4 % (47-70); Platelet Count 246 K/mm3 (150-450); RBC Distribution Width CV 11.9 % (11.6-14.6); RBC Distribution Width SD 41.1 fl (35.1-43.9); Red Blood Count 5.74 M/mm3 (4.6-6.2); White Blood Count 17.8 K/mm3 (4.4-11.0)
[2024-07-09] MEDS: proMETHazine 25 MG/ML Syringe IM (17:58)
[2024-07-09] MEDS: Haloperidol Lactate 5 MG/ML Vial 2 MG IV (17:58)
[2024-07-09 18:01] LABS: Differential Indicated SCAN CRITERIA MET
[2024-07-09] MEDS: HYDROmorphone 1 MG/ML Syringe IV (18:53)
--- NOTE | 2024-07-09 19:15 | HP.PCM.HOS_ITS ---
[facility] - General General Date of Admission: 07/09/24 Date of Service: 07/09/24 Chief Complaint: Chest Pain, Abdominal Pain, Nausea and Vomiting. HPI Narrative THERESA JACOBSON, is a 38 M with a past medical history of Chronic EtOH abuse; with patient admitting to ~6 drinks per day on week days and ~12 daily on weekends, history of seizures; on Vimpat, history of essential hypertension; currently not on treatment, overweight; with BMI of 27.4 this admission, history of panic disorder, history of PTSD, history of generalized anxiety, listed allergy to amoxicillin (?), listed allergy to carbamazepine (rash), rectal bleeding and history of GERD; with acute gastritis (09/2023) who presents to [facility] ER complaining of chest pain and abdominal pain. Mr. Jacobson reports his symptoms began approximately 2 days prior to admission with diffuse, generalized, cramping abdominal pain followed by nausea and vomiting with bilious emesis. Then about 2 hours prior to arrival he began to have his abdominal pain radiating into his chest and was substernal, burning and severe so he decided to come in for further evaluation and treatment. He admits to continued EtOH abuse but he does admit to missing his seizure medication this evening due to his GI upset. His informed me he has been trying to cut back on his drinking recently. In the ER he was noted to have CT evidence of e xtensive peripancreatic fluid with questionable area of hypoenhancement of the parenchyma seen within the pancreatic neck consistent with suspected Acute Pancreatitis along with incidentally noted intramural fatty deposit located in the colon that is a nonspecific finding consistent with chronic inflammation or IBD with corresponding elevated serum lipase of 1,310 U/L and JC of 87 mg/dL with a UDS positive for Cannabis in the setting of Chronic EtOH Abuse complicated by Leukocytosis of 17.8K with Left-shift of 2.1% present on admission due to suspected Acute Phase Reactant and Erythrocytosis of 19.8 g/dL present on admission due to suspected volume contraction along with an elevated d-dimer of 1.39 present on admission compounded by clinical evidence of Acute EtOH Withdrawal with Uncontrolled Hypertension of 185/120 mmHg noted shortly after admission and he was then admitted to the PCU for ongoing care for a stay that is expected to extend beyond 2 midnights. COUNT INCLUDES THE [facility] Medical History Panic disorder PTSD (post-traumatic stress disorder) Anxiety Bite from insect History of GI bleed Gastric reflux Non-smoker Chronic cough Leg cramps Hypertension Dysphagia Diarrhea Rectal bleeding Encounter for screening for COVID-19 Home Medications ?Medication ?Instructions ?Recorded ?Last Taken ?Type multivitamin 1 tab PO DAILY 03/10/23 Unkn own History lacosamide 200 mg capsule,extended 200 mg PO BID 07/09 Unknown History release 24 hr loperamide 2 mg tablet 2 mg PO QODAY 07/09/24 Unkno wn History (Anti-Diarrheal (loperamide)) Allergy/AdvReac Type Severity Reaction Status Date / Time amoxicillin Allergy Unknown Verified 05/09/23 06:12 carbamazepine Allergy Rash Verified 07/09/24 14:48 Family History Father Seizures Surgical History S/P wisdom tooth extraction Social History Smoking Status: Never smoker alcohol intake: never ROS ROS Narrative Review of Systems: Constitutional: Patient denies fever or chills. Eyes: Patient denies changes in vision or discharge from eyes. ENT: Patient denies runny nose, sore throat or ear pain. Resp: Patient denies SOB or cough. CV: Patient admits to chest pain as per HPI. He denies palpitations or heart racing. GI: Patient admits to nausea and vomiting with bilious emesis and generalized abdominal pain as per HPI. : Patient denies dysuria or hematuria. MSK: Patient denies arthralgias or myalgias. Skin: Patient denies rash, abscess, wounds or jaundice. Psych: Patient admits to elevated anxiety but he denies SI or HI. Neuro: Patient denies headache, paresthesias or focal neurologic deficits. Allergy: Patient denies lip swelling, tongue swelling or urticaria. Hematology: Patient denies easy bleeding or easy bruisability. Endocrinology: Patient denies polyuria, polydipsia or polyphagia. 14 point ROS otherwise negative except for positives noted above in HPI. Vital Signs Vital Signs Vital Signs: 07/09/24 14:45 07/09/24 15:45 07/09/24 16:00 Temperature 98.2 F Temperature Source Temporal Pulse Rate 132 H 98 135 H Respiratory Rate 18 17 20 H Blood Pressure 147/107 H 171/122 H Blood Pressure Mean 120 138 Pulse Ox 96 97 97 Oxygen Delivery Method Room Air Room Air 07/09/24 17:00 07/09/24 18:08 07/09/24 18:58 Temperature 97.9 F Temperature Source Pulse Rate 115 H 130 H 120 H Respiratory Rate 17 20 H 16 Blood Pressure 180/124 H 185/120 H Blood Pressure Mean 142 141 Pulse Ox 100 Oxygen Delivery Method Weight Weight: 174 lb 13.225 oz Body Mass Index (BMI) 27.3 Physical Exam Const alert, oriented x3 and average body habitus Constitutional Narrative: Moderate discomfort noted. General Appearance: cooperative HEENT normocephalic, head/scalp atraumatic, hearing grossly normal bilaterally and moist oral mucous membranes Eyes PERRL, EOMs intact bilaterally and conjunctivae normal Neck no lymphadenopathy, supple and no JVD Resp normal respiratory effort, no retractions, no use of accessory muscles and clear to auscultation bilaterally Cardio regular rate and regular rhythm GI normal to inspection, nondistended, normoactive bowel sounds, soft to palpation and non-distended GI Narrative: Mild TTP in the epigastrium. Extremity normal to inspection, full ROM and no clubbing, cyanosis or edema Skin Skin Narrative: Patient has no evidence of rash, abscess, wounds or jaundice. Neuro oriented x3, CN's II-XII intact bilaterally, moves all extremities and no focal motor deficits Sensorium / Orientation: awake, alert, oriented to person, oriented to place and oriented to time Speech: speech normal Psych Mood & Affect: anxious Results Medical Records Data Attestation: I reviewed the patient's medical records Lab / Micro Data Attestation: I reviewed the patient's lab results. 07/09/24 14:55 07/09/24 14:55 Labs: Laboratory Results - last 24 hr 07/09/24 14:55: WBC 17.8 H, RBC 5.74, Hgb 19.8 H*, Hct 53.9, MCV 93.9, MCH 34.5 H, MCHC 36.7 H, RDW Std Deviation 41.1, RDW Coeff of Cecily 11.9, Plt Count 246, MPV 9.6, Immature Gran % (Auto) 2.100 H, Neut % (Auto) 78.4 H, Lymph % (Auto) 10.9 L, [place] % (Auto) 7.5, Eos % (Auto) 0.1, Baso % (Auto) 1.0, Absolute Neuts (auto) 14.0 H, Absolute Lymphs (auto) 1.94, Nucleated RBC % 0, Diff Path Review September foll, D-Dimer Quant (PE/DVT) 1.39 H*, Sodium 138, Potassium 3.6, Chloride 98, Carbon Dioxide 27.0, Anion Gap 13, BUN 6 L, Creatinine 0.67 L, Estim Creat Clear Calc 142.50, Est GFR (MDRD) Af Amer 172, Est GFR (MDRD) Non-Af 142, B UN/Creatinine Ratio 8.9 L, Glucose 151 H, Calcium 9.4, Total Bilirubin 1.00, AST 144 H, ALT 158 H, Alkaline Phosphatase 97, Troponin I High Sens 11, Total Protein 8.3 H, Albumin 4.8, Globulin 3.5, Albumin/Globulin Ratio 1.4, Lipase 1310 H 07/09/24 16:45: Urine Color Yellow, Urine Clarity Clear, Urine pH 6.5, Ur Specific [place] 1.010, Urine Protein 100 H, Urine Glucose (UA) Normal, Urine Ketones 15 H, Urine Occult Blood 10 H, Urine Nitrite Negative, Urine Bilirubin Negative, Urine Urobilinogen Normal, Ur Leukocyte Esterase Negative, Urine RBC 0-5 SEEN, Urine WBC 0-5 SEEN, Ur Squamous Epith Cells 0-5 SEEN, Urine Bacteria 0 SEEN, Hyaline Casts 0-5 SEEN, Urine Mucus 0 SEEN Micro: Microbiology 07/09/24 15:45 Mucosa - Nose SARS-CoV-2, Influenza & RSV (PCR) - Final Imaging Radiology Impression Chest X-Ray 07/09/24 15:50 IMPRESSION: No radiographic evidence of acute cardiopulmonary disease Reading Location: [facility] Abdomen/Pelvis CT 07/09/24 16:30 IMPRESSION: Extensive peripancreatic fluid noted with questionable area of hypoenhancement of the parenchyma seen within the pancreatic neck. Correlate with laboratory values for acute pancreatitis. Consider further evaluation with MRI using pancreas protocol as clinically indicated to exclude a lesion in this area. Intramural fatty deposition is noted in the colon. This nonspecific finding can be seen in chronic inflammation or inflammatory bowel disease. Reading Location: [id number] Chest CTA 07/09/24 16:30 IMPRESSION: 1. No CT evidence of acute pulmonary embolism 2. Acute pancreatitis 3. Small hiatal hernia One or more dose reduction techniques were used (e.g., Automated exposure control, adjustment of the mA and/or kV according to patient size, use of iterative reconstruction technique). Reading Location: [facility] Assessment & Plan Assessment/Plan (1) Alcoholic pancreatitis: QUALIFIERS: Acute pancreatitis complication: no infection or necrosis Chronicity: acute Qualified Code(s): K85.20 - Alcohol induced acute pancreatitis without necrosis or infection (2) Transaminitis: (3) Intractable nausea and vomiting: (4) Abdominal pain: QUALIFIERS: Abdominal location: generalized Qualified Code(s): R 10.84 - Generalized abdominal pain (5) Alcohol withdrawal: QUALIFIERS: Complication of substance-induced condition: with unspecified complication Qualified Code(s): F10.939 - Alcohol use, unspecified with withdrawal, unspecified (6) Chronic alcohol abuse: (7) Leukocytosis: QUALIFIERS: Leukocytosis type: unspecified Qualified Code(s): D 72.829 - Elevated white blood cell count, unspecified (8) Erythrocytosis: (9) Dehydration: (10) Uncontrolled hypertension: (11) History of epilepsy: (12) D-dimer, elevated: (13) Overweight (BMI 25.0-29.9): PLAN: Plan 1. Acute EtOH Pancreatitis; with confirmatory CT findings and Lipase of 1,310 U/L and mild Transaminitis with AST 144 U/L and ALT of 158 U/L - Admit to PCU. Keep strict NPO and aggressively volume resuscitate with NS IV @ 150 cc/hr x 3 liters and then notify physician to reassess. Start pantoprazole 40 mg IV daily for GI prophylaxis. Check CMP and Lipase daily to follow trend. Give ketorolac IV prn for [id number] (level 1-5/10) pain or fever. Give morphine IV prn for severe (level 6-10/10) pain. We will check MRCP with abnormal appearance of pancreas noted on CT. Finally, we will consult gastroenterology to see this patient on-rounds in the AM for further recommendations with help appreciated in advance. 2. Intractable Nausea and Vomiting with Abdominal Pain due to #1 - Give IV ondansetron prn for nausea and vomiting. Give IM promethazine prn for breakthrough nausea and vomiting. Place scopolamine patch for control of persistent nausea. 3. Acute EtOH Withdrawal in the setting of Chronic EtOH Abuse with JC of 87 mg/dL present on admission complicating #1 & #2 in the setting of - EtOH Cessation will be strongly encouraged. Start IV MVI and give IV Ativan prn for signs and symptoms of EtOH Withdrawal. 4. Leukocytosis of 17.8K with Left-shift of 2.1% present on admission arising primarily for #1 & #2; likely due to acute phase reactant with no objective evidence of acute infection at this time - UA, CXR and CT abdomen/pelvis negative for signs of acute infection but with low-grade fever of 99.9 degrees Fahrenheit present shortly after admission. Start empiric IV levofloxacin and IV metronidazole given patient's listed allergy to amoxicillin (?). Check CBC daily to follow trend. Stop antibiotics if MRCP negative and no other sources of infection are identified. 5. Erythrocytosis of 19.8 present on admission due to suspected volume contraction from Dehydration compounding #1 - #4 - Aggressively volume resuscitate and recheck CBC in AM to follow trend. 6. Uncontrolled Hypertension of 185/120 mmHg noted shortly after admission attributable to #1 - #5 - Give hydralazine 10 mg IV q. 8 hours prn for systolic blood pressure > 160 mmHg. Give IV metoprolol prn for breakthrough hypertension and/or heart rate > 120 bpm. 7. History of Seizure disorder on Lacosamide adding to the medical complexity of #1 - #6 - Start Lacosamide 200 mg IV BID until patient resumes oral intake. Give IV lorazepam prn for breakthrough seizure activity with allergy to carbamazepine (rash) contraindicating treatment with phenobarbital. 8. Elevated d-dimer of 1.39 present on admission likely due to #1 with negative CTA of chest and no LE edema noted - Check bilateral LE Doppler in light of #5. 9. UDS positive for Cannabis present on admission - Cannabis Cessation will be strongly encouraged. 10. Overweight; with BMI of 27.4 this admission - Weight loss will be recommended. Check TSH. 11. History of panic disorder with PTSD and generalized anxiety - Give IV lorazepam prn for breakthrough symptoms. 12. Listed allergy to amoxicillin (?) - Noted. 13. Listed allergy to carbamazepine (rash) - Noted. 14. History of rectal bleeding - Noted with no signs of recurrence at this time. Stop LMWH if bleeding ensues. 15. History of GERD; with acute gastritis (09/2023) - Noted. Patient on IV pantoprazole for #1. 16. DVT prophylaxis - Lovenox 40 mg sq daily plus SCD's. Total time: Approximately (but not less than) 75 minutes. Charges/Coding Visit Charges Inpatient E&M: 21365 Init Hosp L3
[2024-07-09] MEDS: Lorazepam 2 MG/ML WCH Syringe IV (19:35)
[2024-07-09 19:47] LABS: Amphetamine Urine NEGATIVE (<1000 ng/mL); Barbiturate Urine VISTA NEGATIVE (< 200 ng/mL); Benzodiazepine Urine VISTA NEGATIVE (< 200 ng/mL); Cocaine Urine VISTA NEGATIVE (< 300 ng/mL); Ecstacy Urine VISTA NEGATIVE (< 500 ng/mL); Methadone Urine VISTA NEGATIVE (< 300 ng/mL); Opiates Urine NEGATIVE (< 300 ng/mL); PCP Urine NEGATIVE (< 25 ng/mL); THC Urine VISTA POSITIVE (< 50 ng/mL); Vista UDS pH Range 6
[2024-07-09 20:22] LABS: International Normalized Ratio 1.1; Prothrombin Time (Protime)PT. 14.1 SECONDS (11.7-14.9)
[2024-07-09 20:37] LABS: Magnesium 1.8 mg/dL (1.6-2.6)
[2024-07-09] MEDS: hydrALAZINE 20 MG/ML Vial 10 MG IV (20:37)
[2024-07-09] MEDS: 0.9% Normal Saline (1000mL) 1,000 ML 150 ML IV (21:07)
[2024-07-09] MEDS: Metoprolol Tartrate 5 MG/5 ML Vial IV (21:30)
[2024-07-09 21:35] LABS: Vitamin B12 546 pg/mL (211-911)
[2024-07-09] MEDS: Multivitamins 10 ML in 0.9% Normal Saline (1000mL) 1,000 ML 1000 ML IV (21:37)
[2024-07-09] MEDS: Enoxaparin 40 MG/0.4 ML Syringe SC (22:02)
[2024-07-09] MEDS: Morphine 2 MG/ML Syringe IV (22:03)
[2024-07-09] MEDS: Scopolamine 1mg/72hr Patch 1 PATCH TD (22:04)
[2024-07-09] MEDS: LORazepam 2 MG/ML Syringe IV (22:05)
[2024-07-09] MEDS: Folic Acid 1 MG in 0.9% Normal Saline (50mL Bag) 50 ML 200 MG IV (22:49)
[2024-07-09] MEDS: Pantoprazole Sodium 40 MG in 0.9% Normal Saline (100mL MB+) 100 ML 330 MG IV (23:11)
[2024-07-09] MEDS: 0.9% Saline Lock 10 ML Syringe IV (23:24)
[2024-07-10] VITALS (24 sets, daily range): BP systolic 123–191; BP diastolic 92–138; PULSE 120–161; RESP 20–41; TEMP 36.7–37.7; O2SAT 90–99; BMI 28.4
[2024-07-10] MEDS: Ondansetron 4 MG/2 ML Vial IV ×2 (02:11→09:10)
[2024-07-10] MEDS: Metoprolol Tartrate 5 MG/5 ML Vial 2.5 MG IV (02:12)
[2024-07-10] MEDS: LORazepam 2 MG/ML Syringe IV ×3 (02:13→13:29)
[2024-07-10] MEDS: 0.9% Normal Saline (1000mL) 1,000 ML 150 ML IV ×2 (03:15→10:32)
--- NOTE | 2024-07-10 04:02 | VDLE_ITS ---
Reason For Study Reason For Study: Elevated D Dimer RIGHT LEFT GSV is normal. GSV is normal. CFV is compressible, spontaneous, phasic, competent CFV is compressible, spontaneous, phasic, competent, and demonstrates normal augmentation. and demonstrates normal augmentation. FV is compressible, spontaneous, phasic, competent FV is compressible, spontaneous, phasic, competent and demonstrates normal augmentation. and demonstrates normal augmentation. POP V is compressible, spontaneous, phasic, competent POP V is compressible, spontaneous, phasic, competent and demonstrates normal augmentation. and demonstrates normal augmentation. T/P Trunk is compressible. T/P Trunk is compressible. PTV is compressible. PTV is compressible. RT PerV is compressible. LT PerV is compressible. Procedure This is a venous duplex using B-mode, color flow and spectral Doppler. Exam performed in department. The exam was diagnostic. A preliminary report was called and/or faxed to [facility] [employer]. VL/Venous Duplex US - Josué Extrem Interpretation Summary Deep veins of the lower extremities are bilaterally patent and compressible seg mentally. There is no evidence of deep vein thrombosis on either side. Valvular competence appears intact within the p roximal deep venous systems bilaterally. The great saphenous veins appear bilaterally patent and compressible segmentall y. Ordering Physician: Rc Carrillo Referring Physician: [facility] Performed By: Dakota Hou RVT
[2024-07-10] MEDS: levoFLOXacin IV 750 MG/150 ML BAG 100 MG IV ×2 (04:22→21:00)
[2024-07-10] MEDS: Metoprolol Tartrate 5 MG/5 ML Vial IV (04:26)
[2024-07-10] MEDS: metroNIDAZOLE 500 MG/100 ML BAG 100 MG IV ×3 (04:28→21:00)
[2024-07-10 06:10] LABS: Absolute Lymphocyte Count 0.62 X10^3/uL (0.83-4.51); Absolute Neutrophil Count 9.3 X10^3/uL (2.0-7.7); Basophil# 0.07 X10^3/uL; Basophil% 0.6 % (0-1); Eosinophil# 1.83 X10^3/uL; Eosinophils% 14.4 % (0-5); Hematocrit 53.6 % (40-54); Lymphocyte # 0.62 X10^3/ul (0.83-4.51); Lymphocyte % 4.9 % (19-41); Mean Corp Hgb Conc 35.3 g/dL (32-36); Mean Corpuscular Hgb 32.5 pg (27.0-32.0); Mean Corpuscular Volume 92.3 fL (80-94); Mean Platelet Vol. 9.9 fl (6.2-12.0); Monocyte# 0.87 X10^3/uL; Monocyte% 6.8 % (0-10); NRBC Flagged by Analyzer 0 % (0-5); Neutrophil # 9.29 X10^3/uL (2.7-7.7); POSITIVE MORPHOLOGY YES; Platelet Count 169 K/mm3 (150-450); RBC Distribution Width SD 40.6 fl (35.1-43.9); Red Blood Count 5.81 M/mm3 (4.6-6.2); White Blood Count 12.7 K/mm3 (4.4-11.0)
[2024-07-10 06:41] LABS: Differential Indicated SCAN CRITERIA MET; Hemoglobin 18.9 g/dL (13.0-16.5)
[2024-07-10 06:51] LABS: Phosphorus 1.2 mg/dL (2.5-4.9)
[2024-07-10 07:02] LABS: ALB/GLOB Ratio 1.1 RATIO (0.9-2.4); AST(SGOT) 121 U/L (15-37); Alanine Aminotransfer ALT/SGPT 102 U/L (16-61); Albumin, Serum 3.8 g/dL (3.2-5.0); Alkaline Phosphatase 58 U/L (45-117); Anion Gap 12 (5-15); BUN 8 mg/dL (7-18); BUN/Creat Ratio 9.6 RATIO (10-20); Chloride 104 mmol/L (98-107); Creatinine, Serum 0.83 mg/dL (0.70-1.30); EST Glomerular Filtration Rate 110 mL/min (>60); Est Glom Filt Rate - Afr Amer 134 mL/min (>60); Estimated Creatinine Clearance 126.38 ml/min; Globulin 3.5 g/dL (2.2-4.2); Glucose 168 mg/dL (74-106); Lipase 2277 U/L (73-393); Potassium 3.6 mmol/L (3.5-5.1); Protein, Total 7.3 g/dL (6.4-8.2); Sodium Level 136 mmol/L (136-145)
[2024-07-10] MEDS: Ketorolac 15 MG/ML Vial IV (08:00)
[2024-07-10] MEDS: Metoprolol Tartrate 100 MG Tablet PO ×2 (09:11→22:01)
[2024-07-10] MEDS: Phenobarbital 32.4 MG Tablet 97.2 MG PO ×4 (09:12→20:54)
[2024-07-10] MEDS: 0.9% Saline Lock 10 ML Syringe IV ×4 (09:12→20:40)
[2024-07-10] MEDS: Morphine 4 MG/ML Syringe IV (09:12)
[2024-07-10] MEDS: Folic Acid 1 MG in 0.9% Normal Saline (50mL Bag) 50 ML 200 MG IV (10:32)
--- NOTE | 2024-07-10 11:10 | CPS ---
SMI and Pep held at this time, Pt sleeping.
[2024-07-10] MEDS: Lacosamide 200 MG in 0.9% Normal Saline (50mL Bag) 50 ML 100 MG IV ×2 (11:12→22:06)
[2024-07-10] MEDS: Enoxaparin 40 MG/0.4 ML Syringe SC (11:13)
[2024-07-10] MEDS: Gabapentin 300 MG Capsule PO (11:19)
[2024-07-10 11:49] LABS: Pathologist Review Reviewed
[2024-07-10] MEDS: Pantoprazole Sodium 40 MG in 0.9% Normal Saline (100mL MB+) 100 ML 330 MG IV (11:58)
[2024-07-10] MEDS: Phenobarbital Sodium 65 MG/ML Vial 100 MG IV (16:33)
--- NOTE | 2024-07-10 18:02 | PN.HOSP_ITS ---
Reason for Visit Reason for Visit: Diagnoses Secondary polycythemia (07/09/24) Overweight (07/09/24) Dehydration (07/09/24) Alcohol use, unspecified with withdrawal, unspecified (07/09/24) Essential (primary) hypertension (07/09/24) Generalized abdominal pain (07/09/24) Elevation of levels of liver transaminase levels (07/09/24) Personal history of other diseases of the nervous system and sense organs (07/09/24) Subjective Subjective Patient was seen and examined today, he had periods today where he was anxious and hallucinating, I gave the patient IV phenobarbital today in addition to beginning a phenobarbital taper. I talked with the patient early this morning and he agreed to go into the ramp program here, his is in the room at the time I had the conversation with him. I do not feel the patient needs an MRCP at this time, he does not have any signs of obstruction and patient would not be able to lie still on the MRI table because of his withdrawal symptoms. Objective Data Objective Data Vital Signs: Vital Signs Temp Pulse Resp BP Pulse Ox O2 Del Method O2 Flow Rate 99.9 F H 140 H 20 H 152/117 H 95 Room Air 2 07/10/24 16:37 07/10/24 16:44 07/10/24 16:44 07/10/24 16:44 07/10/24 16:44 07/10/24 16:37 07/10/24 07:47 Oxygen Flow Rate (L/min) 2 Oxygen Delivery Method Room Air Weight: 82.4 kg Body Mass Index (BMI) 28.4 Intake & Output: Intake and Output for Last 24 Hours 07/08/24 07/09/24 07/10/24 23:59 23:59 23:59 Intake Total 2320.2 / 2320.2 3900.2 / 3900.2 Balance 2320.2 / 2320.2 3900.2 / 3900.2 Lab / Micro Data 07/10/24 05:59 07/10/24 05:59 Labs: Laboratory Results - last 24 hr 07/09/24 14:45: PT 14.1, INR 1.1, Magnesium 1.8, Folate 6.90, TSH 1.170 07/09/24 14:55: Diff Path Review Reviewed 07/09/24 19:25: Vitamin B12 546, Urine Opiates Screen NEGATIVE, Urine Methadone Screen NEGATIVE, Ur Barbiturates Screen NEGATIVE, Ur Phencyclidine Scrn NEGATIVE, Ur Amphetamines Screen NEGATIVE, MDMA (Ecstasy) Screen NEGATIVE, U Benzodiazepines Scrn NEGATIVE, Urine Cocaine Screen NEGATIVE, U Cannabinoids Screen POSITIVE H, Ur Drug Screen Comment , Ethyl Alcohol 87.0 07/10/24 05:59: WBC 12.7 H, RBC 5.81, Hgb 18.9 H*, Hct 53.6, MCV 92.3, MCH 32.5 H, MCHC 35.3, RDW Std Deviation 40.6, RDW Coeff of Cecily 12.0, Plt Count 169, MPV 9.9, Immature Gran % (Auto) 0.300, Neut % (Auto) 73.0 H, Lymph % (Auto) 4.9 L, Bladen % (Auto) 6.8, Eos % (Auto) 14.4 H, Baso % (Auto) 0.6, Absolute Neuts (auto) 9.3 H, Absolute Lymphs (auto) 0.62 L, Nucleated RBC % 0, Sodium 136, Potassium 3.6, Chloride 104, Carbon Dioxide 20.0 L, Anion Gap 12, BUN 8, Creatinine 0.83, Estim Creat Clear Calc 126.38, Est GFR (MDRD) Af Amer 134, Est GFR (MDRD) Non-Af 110, BUN/Creatinine Ratio 9.6 L, Glucose 168 H, Calcium 8.0 L, Phosphorus 1.2 L, Total Bilirubin 2.40 H, AST 121 H, ALT 102 H, Alkaline Phosphatase 58, Total Protein 7.3, Albumin 3.8, Globulin 3.5, Albumin/Globulin Ratio 1.1, Lipase 2277 H Micro: Microbiology 07/09/24 15:45 Mucosa - Nose SARS-CoV-2, Influenza & RSV (PCR) - Final Radiography Diagnostic Testing: Radiology Impression Chest CTA 07/09/24 16:30 IMPRESSION: 1. No CT evidence of acute pulmonary embolism 2. Acute pancreatitis 3. Small hiatal hernia One or more dose reduction techniques were used (e.g., Automated exposure control, adjustment of the mA and/or kV according to patient size, use of iterative reconstruction technique). Reading Location: [facility] Physical Exam Const alert, oriented x3, no apparent distress and average body habitus Constitutional Narrative: Patient appears mildly anxious at the time my examination General Appearance: cooperative, well kempt and well developed Orientation / Consciousness: awake, oriented to person, oriented to place and oriented to time HEENT normocephalic, head/scalp atraumatic and moist oral mucous membranes Eyes PERRL, EOMs intact bilaterally and conjunctivae normal Neck supple, no JVD, thyroid normal and no carotid bruits General: trachea midline Resp normal respiratory effort, no retractions, no use of accessory muscles and clear to auscultation bilaterally Auscultation: Negative for rales, rhonchi or wheezes Cardio regular rate, regular rhythm, S1 normal heart sound, S2 normal heart sound, no murmurs, no rub and no gallops GI normal to inspection, nondistended, normoactive bowel sounds, soft to palpation, non-tender and non-distended Extremity no clubbing, cyanosis or edema Skin no rashes or lesions noted General Skin Exam: no breakdown Neuro oriented x3, CN's II-XII intact bilaterally, moves all extremities, no focal motor deficits and no sensory deficits noted Sensorium / Orientation: awake and alert Speech: speech normal Psych affect normal Assessment & Plan Assessment/Plan (1) Alcohol withdrawal: QUALIFIERS: Complication of substance-induced condition: with unspecified complication Qualified Code(s): F10.939 - Alcohol use, unspecified with withdrawal, unspecified PLAN: Plan 1. Alcohol induced pancreatitis-patient is currently on a clear liquid diet, he will be monitored for any signs of alcohol withdrawal, patient will be given IV pain medications as needed for abdominal pain. #2 acute alcohol withdrawal-patient was started on a phenobarb taper, he will be monitored for signs of worsening withdrawal #3 essential hypertension-patient states he has a history of high blood pressure, I have elected to start him on metoprolol 100 mg p.o. twice daily, he remains tachycardic at the time of my exam but he is asymptomatic. I have elected at this time to place the patient on clonidine which may help his withdrawal symptoms. #4 seizure disorder-patient is on Vimpat Total clinical time spent by myself addressing the patient's medical issues, reviewing his data, and collaborating with patient's care team: 50 minutes Charges/Coding Visit Charges Inpatient E&M: 72050 Subs Hosp L3
[2024-07-10] MEDS: cloNIDine HCl 0.2 MG Tablet PO (18:47)
[2024-07-10] MEDS: Lorazepam 2 MG/ML WCH Syringe IV (20:20)
[2024-07-10] MEDS: hydrOXYzine PAM 25 MG Capsule 50 MG PO (20:26)
[2024-07-10] MEDS: dexMEDEtomidine 400 MCG in 0.9% Normal Saline (100mL Bag) 96 ML 10.3 MCG CONT INF (23:45)
[2024-07-11] VITALS (44 sets, daily range): BP systolic 76–140; BP diastolic 53–100; PULSE 92–143; RESP 12–44; TEMP 36.5–41.3; O2SAT 90–100; BMI 28.0
[2024-07-11] MEDS: Phenobarbital 32.4 MG Tablet 97.2 MG PO ×2 (00:19→04:52)
[2024-07-11] MEDS: Gabapentin 300 MG Capsule PO (00:20)
[2024-07-11] MEDS: LORazepam 2 MG/ML Syringe IV ×3 (00:23→05:32)
[2024-07-11] MEDS: 0.9% Saline Lock 10 ML Syringe IV ×5 (00:23→10:34)
--- NOTE | 2024-07-11 00:25 | NURSING ---
contacted to notifiy her that patient was transferred to the ICU for treatment of withdrawl symptoms with a continuous infusion of precedex.
[2024-07-11] MEDS: dexMEDEtomidine 400 MCG in 0.9% Normal Saline (100mL Bag) 96 ML 30.9 MCG CONT INF (03:31)
[2024-07-11 04:43] LABS: AST(SGOT) 122 U/L (<=37); Alanine Aminotransfer ALT/SGPT 63 U/L (<=46); Albumin, Serum 3.6 g/dL (3.5-5.0); Alkaline Phosphatase 31 U/L (40-129); Bilirubin, Direct 0.93 mg/dL (0.00-0.30); Globulin 2.4 g/dL (2.2-4.2); Phosphorus 1.9 mg/dL (2.7-4.5); Total Bilirubin 2.64 mg/dL (0.00-1.30)
[2024-07-11] MEDS: TITRATION PARAMETER CHANGE 1 EACH IV (04:52)
[2024-07-11] MEDS: metroNIDAZOLE 500 MG/100 ML BAG 100 MG IV (04:52)
[2024-07-11 05:16] LABS: Absolute Lymphocyte Count 1.12 X10^3/uL (0.83-4.51); Absolute Neutrophil Count 7.7 X10^3/uL (2.0-7.7); Basophil# 0.07 X10^3/uL; Basophil% 0.7 % (0-1); Hematocrit 51.1 % (40-54); Hemoglobin 17.5 g/dL (13.0-16.5); Lymphocyte # 1.12 X10^3/ul (0.83-4.51); Lymphocyte % 11.2 % (19-41); Mean Corp Hgb Conc 34.2 g/dL (32-36); Mean Corpuscular Hgb 32.9 pg (27.0-32.0); Mean Corpuscular Volume 96.1 fL (80-94); Mean Platelet Vol. 11.3 fl (6.2-12.0); Monocyte# 0.91 X10^3/uL; Monocyte% 9.1 % (0-10); NRBC Flagged by Analyzer 0 % (0-5); Neutrophil # 7.74 X10^3/uL (2.7-7.7); Neutrophil % 77.1 % (47-70); POSITIVE MORPHOLOGY YES; Platelet Count 130 K/mm3 (150-450); RBC Distribution Width CV 12.4 % (11.6-14.6); RBC Distribution Width SD 44.2 fl (35.1-43.9); Red Blood Count 5.32 M/mm3 (4.6-6.2)
[2024-07-11 05:33] LABS: Anion Gap 20 (5-15); BUN 24 mg/dL (4-19); BUN/Creat Ratio 12.3 RATIO (10-20); Calcium 7.2 mg/dL (7.6-11.0); Chloride 99 mmol/L (96-108); EST Glomerular Filtration Rate 44 (>60); Estimated Creatinine Clearance 52.04 ml/min; Glucose 154 mg/dL (70-99); Sodium Level 137 mmol/L (133-145)
[2024-07-11 06:11] LABS: Differential Indicated SCAN CRITERIA MET
[2024-07-11 06:25] LABS: Carbon Dioxide 17.8 mmol/L (22.0-29.0); Magnesium 0.9 mg/dL (1.5-2.2)
[2024-07-11] MEDS: Magnesium Sulfate 2 GM in Dextrose 5%-Water (100mL Bag) 100 ML IV (06:35)
[2024-07-11] MEDS: Potassium Phosphate 40 MM in 0.9% Normal Saline (500mL Bag) 500 ML 62.5 MM IV (06:35)
--- NOTE | 2024-07-11 06:36 | PCM.HOSP.N ---
Hospitalist Note Early in the shift I was contacted by the PCU charge nurse and informed patient was severely agitated and was trying to get up and not listening to the nursing staff so he was moved to the ICU so he could be started on dexmedetomidine drip.
[2024-07-11] MEDS: dexMEDEtomidine 400 MCG in 0.9% Normal Saline (100mL Bag) 96 ML 30.4 MCG CONT INF ×2 (06:54→10:34)
[2024-07-11 07:10] LABS: Base Excess -4 mmol/L (-2 to +2); Bicarbonate 19.2 mmol/L (22-26); Blood Gas Specimen Type ART; Mode Not entered; O2 Delivery Device Cannula; PO2 63 mmHG (75-100); SITE L Radial; SO2 94 % (95-99); Total Carbon Dioxide 20 mmol/L; pCO2 26.2 mmHg (35-45); pH 7.47 (7.35-7.45)
--- NOTE | 2024-07-11 07:29 | RAD_ITS ---
PROCEDURE: CHEST 1 VIEW (PORTABLE) REASON FOR EXAM: Respiratory distress. TECHNIQUE: Frontal view of the chest. COMPARISON: Comparison is made with prior study dated July 09, 2024. FINDINGS: EKG electrodes are seen. Limited inspiratory effort. There is evidence of atelectasis and/or infiltrate at the left lung base. Mild atelectatic changes at the right lung base. Blunting of the left costophrenic angle. Gaseous distention of the stomach. RAD/Chest 1 View (Portable) IMPRESSION: Limited inspiratory effort with evidence of bibasilar atelectasis more prominen t at the left lung base. Blunting of the left costophrenic angle. Gaseous distention of the stomach. Reading Location: [facility]
--- NOTE | 2024-07-11 08:07 | CON.PCM.CC_ITS ---
Assessment & Plan Assessment/Plan (1) Alcohol withdrawal: QUALIFIERS: Complication of substance-induced condition: with unspecified complication Qualified Code(s): F10.939 - Alcohol use, unspecified with withdrawal, unspecified (2) Alcoholic pancreatitis: QUALIFIERS: Chronicity: acute Acute pancreatitis complication: no infection or necrosis Qualified Code(s): K85.20 - Alcohol induced acute pancreatitis without necrosis or infection (3) KARAN (acute kidney injury): (4) Respiratory failure with hypoxia: PLAN: Plan RECOMMENDATIONS: 1. Proceed with intubation. Obtain follow-up chest x-ray postintubation along with ABG and sputum for culture. 2. Continue Precedex for sedation. Start fentanyl for pain control. 3. Additional IV fluid resuscitation, as ordered. 4. Continue PPI therapy along with thiamine folic acid. 5. Aggressive electrolyte repletion. 6. OG tube to wall suction for gastric decompression. 7. Continue appropriate DVT prophylaxis. IMPRESSIONS: 1. Acute hypoxemic respiratory failure Unclear precipitating etiology. However, I do suspect that the patient's profound tachypnea was likely secondary to his acute alcohol withdrawal coupled with underlying kidney injury/metabolic acidosis and gaseous distention of the stomach limiting diaphragmatic excursion. Ultimately, over concerns that the patient would tire out from a respiratory perspective, the decision was made to proceed with intubation. CTA chest completed on July 09 ruled out pulmonary embolism. Chest x-ray today demonstrated no focal findings to suggest pneumonia. The patient will be initiated on assist-control mode of mechanical ventilation, with a goal to wean FiO2 and PEEP to maintain saturations at or above 90%. He will be maintained on Precedex and started on fentanyl for sedation. Will obtain follow-up ABG and send sputum for culture. 2. Acute alcohol withdrawal Continue CIWA monitoring per protocol along with thiamine and folate repletion. Continue Precedex for withdrawal symptoms. Continue aggressive electrolyte repletion, as needed. 3. Alcoholic pancreatitis Additional IV fluid resuscitation, as ordered. Supportive measures as noted above. 4. Acute kidney injury Most likely prerenal in etiology in the setting of pancreatitis. Additional IV fluid resuscitation has been ordered. Continue to monitor urine output. No current indication for renal replacement therapy. 5. History of seizure disorder/hypertension Complicates care, management, recovery and prognosis. Continue home medications as indicated. TIME: 36 minutes of critical care time, independent of procedures, was spent addressing the patient's acute hypoxemic respiratory failure, acute alcohol withdrawal, alcoholic pancreatitis, acute kidney injury, review of all data and collaboration with the care team. HPI Consult Data Date of Consult: 07/11/24 HPI Narrative Reason for Consultation: Acute alcohol withdrawal, respiratory failure with hypoxemia HPI Narrative: The patient is a 38-year-old male, with a history as outlined below, who presented to the emergency department on July 09 with abdominal pain, nausea and vomiting. History pertinent to the patient's hospitalization was obtained primarily from his , as the patient is too encephalopathic to provide any details. The patient has a longstanding history of alcohol dependency of approximately 11 years duration. She reported that he typically drinks, on average, 6 beers per day and 12 beers per day on the weekend. He also has a known history of an underlying seizure disorder and is maintained on Vimpat as an outpatient. The patient has underlying anxiety and PTSD after serving in the in [place]. On presentation to the emergency department, the patient was documented to be afebrile and hemodynamically stable. Initial laboratory evaluation was notable for a white blood cell count of 18,000 with a hemoglobin of 19.8 g/dL. Chemistry profile was notable for an AST of 144, ALT of 158 and lipase of 1310. Urine analysis was unremarkable. Toxicology screen was notable for an alcohol level of 87. CT abdomen/pelvis demonstrated radiographic findings concerning for acute pancreatitis. CTA chest ruled out pulmonary embolism. Lower extremity Doppler study was negative for DVT. The patient was ultimately admitted to the hospital for medical management of alcohol induced pancreatitis and acute alcohol withdrawal. The patient was initially maintained on a phenobarbital taper. Overnight, however, the patient was transferred to the medical intensive care unit due to profound agitation, requiring the initiation of a Precedex infusion. On my evaluation of the patient this morning, he was notably tachypneic with a respiratory rate in the 40s and was minimally responsive on Precedex. His ABG demonstrated a pH of 7.47 with a pCO2 of 26 and pO2 of 63. His creatinine has risen to 2.0 with chest imaging demonstrated gaseous distention of the stomach and blunting of the left costophrenic angle. In light of the patient's respiratory status, an attempt was made to place him on BiPAP, which was largely unsuccessful. The patient's was updated on his status. Given concerns that the patient would continue to tire out from a respiratory perspective, given his significant tachypnea, the decision was made to proceed with intubation. [facility] Medical History Panic disorder PTSD (post-traumatic stress disorder) Anxiety Bite from insect History of GI bleed Gastric reflux Non-smoker Chronic cough Leg cramps Hypertension Dysphagia Diarrhea Rectal bleeding Encounter for screening for COVID-19 Home Medications ?Medication ?Instructions ?Recorded ?Last Taken ?Type multivitamin 1 tab PO DAILY 03/10/23 Unkn own History lacosamide 200 mg capsule,extended 200 mg PO BID 07/09 Unknown History release 24 hr loperamide 2 mg tablet 2 mg PO QODAY 07/09/24 Unkno wn History (Anti-Diarrheal (loperamide)) Allergy/AdvReac Type Severity Reaction Status Date / Time amoxicillin Allergy Unknown Verified 05/09/23 06:12 carbamazepine Allergy Rash Verified 07/09/24 14:48 Family History Father Seizures Surgical History S/P wisdom tooth extraction Social History Smoking Status: Never smoker alcohol intake: never ROS Review of Systems ROS Unobtainable: due to mental status Physical Exam Const Constitutional Narrative: Minimally responsive. Acutely ill in appearance. HEENT normocephalic and head/scalp atraumatic Eyes PERRL and EOMs intact bilaterally Neck supple General: trachea midline Chest inspection of chest normal Resp Effort and Inspection: tachypneic and labored Auscultation: diminished lung sounds Cardio S1 normal heart sound and S2 normal heart sound Rate: tachycardic GI normal to inspection, nondistended, normoactive bowel sounds Extremity no clubbing, cyanosis or edema Skin no rashes or lesions noted Neuro moves all extremities and no focal motor deficits Lab / Micro Data 07/11/24 03:35 07/11/24 03:35 Labs: Laboratory Results - last 24 hr 07/09/24 14:55: Diff Path Review Reviewed 07/10/24 05:59: Diff Path Review May foll 07/11/24 03:35: WBC 10.0, RBC 5.32, Hgb 17.5 H, Hct 51.1, MCV 96.1 H, MCH 32.9 H , MCHC 34.2, RDW Std Deviation 44.2 H, RDW Coeff of Cecily 12.4, Plt Count 130 L, MPV 11.3, Immature Gran % (Auto) 0.900, Neut % (Auto) 77.1 H, Lymph % (Auto) 11.2 L, Morris % (Auto) 9.1, Eos % (Auto) 1.0, Baso % (Auto) 0.7, Absolute Neuts (auto) 7.7, Absolute Lymphs (auto) 1.12, Nucleated RBC % 0, Sodium 137, Potassium 4.0, Chloride Direct 99, Carbon Dioxide 17.8 L, Anion Gap 20 H, BUN 24 H, Creatinine 2.0 H, Estim Creat Clear Calc 52.04, Est GFR (MDRD) Non-Af 44 L, BUN/Creatinine Ratio 12.3, Glucose 154 H, Calcium 7.2 L, Phosphorus 1.9 L, M agnesium 0.9 L*, Total Bilirubin 2.64 H 07/11/24 03:35: Total Bilirubin Cancelled, Direct Bilirubin 0.93 H, AST 122 H 07/11/24 03:35: AST Cancelled, ALT 63 H 07/11/24 03:35: ALT Cancelled, Alkaline Phosphatase 31 L 07/11/24 03:35: Alkaline Phosphatase Cancelled, Total Protein 6.0 07/11/24 03:35: Total Protein Cancelled, Albumin 3.6 07/11/24 03:35: Albumin Cancelled, Globulin 2.4 07/11/24 03:35: Globulin Cancelled, Albumin/Globulin Ratio Cancelled ABG Data ABG results: ABG 07/11/24 07:06 Specimen Type ART Sample Site L Radial pH 7.47 H Bicarbonate Actual 19.2 L Total CO2 20 Base Excess -4 L O2 Saturation 94 L O2 % 4.0 ABG pCO2 26.2 L ABG pO2 63 L Erik Test N/A O2 Delivery Device Cannula Vent Mode Not entered Imaging Radiology Impression Venous Doppler Study 07/10/24 04:02 Interpretation Summary Deep veins of the lower extremities are bilaterally patent and compressible segmentally. There is no evidence of deep vein thrombosis on either side. Valvular competence appears intact within the proximal deep venous systems bilaterally. The great saphenous veins appear bilaterally patent and compressible segmentally. Ordering Physician: Rc Carrillo Referring Physician: [facility] Performed By: Dakota Hou RVT Chest X-Ray 07/11/24 07:29 IMPRESSION: Limited inspiratory effort with evidence of bibasilar atelectasis more prominent at the left lung base. Blunting of the left costophrenic angle. Gaseous distention of the stomach. Reading Location: [id number] Charges/Coding Procedures Hospitalists Procedures: 42300 Critical Care 1st Hr
[2024-07-11] MEDS: Magnesium Sulfate 4gm/100mL 4 GM/100 ML IV.SOLN. IV (08:47)
[2024-07-11] MEDS: Lactated Ringers 1,000 ML 999 ML IV ×3 (08:53→13:09)
[2024-07-11] MEDS: Midazolam 2 MG/2 ML Syringe IV (09:52)
[2024-07-11] MEDS: Etomidate 20 MG/10 ML Vial IV ×2 (09:53→09:58)
[2024-07-11] MEDS: Succinylcholine Chloride 200 MG/10 ML SYRINGE 100 MG IV (09:57)
[2024-07-11 10:04] LABS: Lipase 1322 U/L (13-75)
[2024-07-11] MEDS: fentaNYL drip 100 ML 15 MCG CONT INF (10:15)
--- NOTE | 2024-07-11 10:15 | RAD_ITS ---
PROCEDURE: CHEST 1 VIEW (PORTABLE) REASON FOR EXAM: Tube placement. TECHNIQUE: Frontal view of the chest. COMPARISON: X-ray dated 07/09/2024. FINDINGS: The cardiac and mediastinal contours are normal. Endotracheal tube tip is 3.5 cm above the zack, acceptable position. The tip of the feeding tube is below the diaphragm, within the stomach. Hypoventilatory changes. No acute consolidation, pleural effusion or pneumothorax. The visualized osseous structures demonstrate no acute abnormality. RAD/Chest 1 View (Portable) IMPRESSION: Endotracheal tube tip is 3.5 cm above the zack, acceptable position. The tip of the feeding tube is below the diaphragm, within the stomach. Reading Location: [id number]
--- NOTE | 2024-07-11 10:27 | CASEMGMT ---
Addendum entered by Melanie Nazario 07/11/24 14:42: Per Ray @ [facility], pt is 80% service connected. Ray states, if pt/ wish for pt to be transferred to [facility], to submit updated clinicals. RODERICK LUNA spoke w/, as pt is currently intubated. prefers pt not to be transferred to [facility] unless necessary. Ray @ [facility] made aware and states that is not a problem, and transfer is not necessary at this time. Original Note: RODERICK LUNA NOTE: RODERICK LUNA spoke w/Ray @ [facility] ([phone], ext: [phone]) and given clinical updates. He was made aware pt is being intubated. Sulema INFANTE RN, CM
[2024-07-11] MEDS: Enoxaparin 40 MG/0.4 ML Syringe SC (10:40)
--- NOTE | 2024-07-11 10:42 | NURSING ---
09:40 Dr Hunt at bedside at this time requesting this patient be intubated due to respiratory failure. 09:47 16F Marroquin catheter placed at this time. 09:52 2mg of versed given 09:53 20mg of etomidate given 09:54 7.5 ETT placed 22@lip positive color change and Bilateral breath sounds OG also placed at this time.. Chest x-ray ordered 09:[address] Hunt requesting 100mg of succinylcholine and an additional 20mg of Etomidate 09:57 100mg Succinylcholine given 09:58 20mg of Etomidate given 10:10 Dr Hunt requesting the Fentanyl be started at 150mcg/hr. 10:15 fentanyl started at 150mcg/hr Patient resting comfortably, Vital signs stable
--- NOTE | 2024-07-11 11:14 | CASEMGMT ---
Social Work Pt did sign consent on 07/10 to be part of the RAMP program. CT spoke with Yesenia, addiction therapist who met with pt yesterday. Yesenia updated that pt is now intubated. CT will continue to follow for ongoing needs. STEVIE Oswald
[2024-07-11 12:04] LABS: Base Excess -5 mmol/L (-2 to +2); Bicarbonate 19.9 mmol/L (22-26); Blood Gas Specimen Type ART; Mode AC; O2 Delivery Device ET Tube; PEEP 5; PO2 74 mmHG (75-100); RR 16; SITE L Brach; SO2 95 % (95-99); Total Carbon Dioxide 21 mmol/L; pCO2 32.7 mmHg (35-45); pH 7.39 (7.35-7.45)
--- NOTE | 2024-07-11 12:34 | PCM.OP.PRO2 ---
Procedures Hospitalists Procedures: 42720 Insert Emergency Airway Non-invasive Procedural Procedure Information Description of procedure: Intubation Indication: Impending respiratory failure Consent was obtained from: The patient was placed in the appropriate sniffing position. Preoxygenated sedation via BiPAP was provided for a minimum of 3 minutes. The patient had continuous cardiac as well as pulse oximetry monitoring during the procedure. Procedure sedation was provided by the administration of 2 mg of Versed and 20 mg of etomidate. Direct laryngoscopy was then performed using a number 4 MAC blade, which revealed a grade 1 view. A 7.5 mm endotracheal tube was visualized advancing between the cords to the level of 23 cm at the lip. The stylette was then removed and discarded. Tube placement was confirmed by fogging in the tube along with equal and bilateral breath sounds. Colorimetric change was visualized on the CO2 meter. The cuff was then inflated and the tube secured using a commercially available device. A good pulse oximetry waveform was seen on the monitor throughout the procedure. A portable chest x-ray has been ordered to confirm appropriate placement. The patient tolerated the procedure well.
--- NOTE | 2024-07-11 12:47 | CASEMGMT ---
Social Work SW met with pt's and support provided. If pt is agreeable to inpatient rehabilitation for CHARLEEN, would be supportive of this. [facility], no other secondary insurance. CT will update addiction therapy. STEVIE Sheriff
[2024-07-11] MEDS: Lacosamide Solution 100 MG/10 ML UDC 200 MG GT (13:09)
[2024-07-11 13:30] LABS: Pathologist Review Reviewed
--- NOTE | 2024-07-11 14:33 | PN.HOSP_ITS ---
Reason for Visit Reason for Visit: Diagnoses Secondary polycythemia (07/09/24) Overweight (07/09/24) Dehydration (07/09/24) Alcohol use, unspecified with withdrawal, unspecified (07/09/24) Essential (primary) hypertension (07/09/24) Respiratory failure, unspecified with hypoxia (07/09/24) Alcohol induced acute pancreatitis without necrosis or infection (07/09/24) Acute kidney failure, unspecified (07/09/24) Generalized abdominal pain (07/09/24) Elevation of levels of liver transaminase levels (07/09/24) Personal history of other diseases of the nervous system and sense organs (07/09/24) Subjective Subjective Patient was seen and examined today, he was moved into the ICU due to increased agitation and declining respiratory status, I talked with critical care this morning at length about his care. He was ultimately intubated this morning and an NG tube was placed. Objective Data Objective Data Vital Signs: Vital Signs Temp Pulse Resp BP Pulse Ox O2 Del Method O2 Flow Rate 98.8 F 92 17 91/67 93 Mechanical Ventilator 4 07/11/24 07:00 07/11/24 13:10 07/11/24 13:10 07/11/24 11:00 07/11/24 13:10 07/11/24 11:52 07/11/24 09:00 FiO2 100 07/11/24 13:10 Oxygen Flow Rate (L/min) 4 Oxygen Delivery Method Mechanical Ventilator Weight: 81 kg Body Mass Index (BMI) 28.0 Intake & Output: Intake and Output for Last 24 Hours 07/09/24 07/10/24 07/11/24 23:59 23:59 23:59 Intake Total 2320.2 / 2320.2 5460.2 / 5462.78 4147.97 / 4147.97 Output Total 125 / 125 200 / 200 Balance 2320.2 / 2320.2 5335.2 / 5337.78 3947.97 / 3947.97 Lab / Micro Data 07/11/24 03:35 07/11/24 03:35 Labs: Laboratory Results - last 24 hr 07/10/24 05:59: Diff Path Review Reviewed 07/11/24 03:35: WBC 10.0, RBC 5.32, Hgb 17.5 H, Hct 51.1, MCV 96.1 H, MCH 32.9 H , MCHC 34.2, RDW Std Deviation 44.2 H, RDW Coeff of Cecily 12.4, Plt Count 130 L, MPV 11.3, Immature Gran % (Auto) 0.900, Neut % (Auto) 77.1 H, Lymph % (Auto) 11.2 L, Amelia % (Auto) 9.1, Eos % (Auto) 1.0, Baso % (Auto) 0.7, Absolute Neuts (auto) 7.7, Absolute Lymphs (auto) 1.12, Nucleated RBC % 0, Sodium 137, Potassium 4.0, Chloride Direct 99, Carbon Dioxide 17.8 L, Anion Gap 20 H, BUN 24 H, Creatinine 2.0 H, Estim Creat Clear Calc 52.04, Est GFR (MDRD) Non-Af 44 L, BUN/Creatinine Ratio 12.3, Glucose 154 H, Calcium 7.2 L, Phosphorus 1.9 L, M agnesium 0.9 L*, Total Bilirubin 2.64 H 07/11/24 03:35: Total Bilirubin Cancelled, Direct Bilirubin 0.93 H, AST 122 H 07/11/24 03:35: AST Cancelled, ALT 63 H 07/11/24 03:35: ALT Cancelled, Alkaline Phosphatase 31 L 07/11/24 03:35: Alkaline Phosphatase Cancelled, Total Protein 6.0 07/11/24 03:35: Total Protein Cancelled, Albumin 3.6 07/11/24 03:35: Albumin Cancelled, Globulin 2.4 07/11/24 03:35: Globulin Cancelled, Albumin/Globulin Ratio Cancelled, Lipase 1322 H Micro: Microbiology 07/09/24 15:45 Mucosa - Nose SARS-CoV-2, Influenza & RSV (PCR) - Final ABG Data ABG results: ABG 07/11/24 07/11/24 07:06 12:01 Specimen Type ART ART Sample Site L Radial L Brach pH 7.47 H 7.39 Bicarbonate Actual 19.2 L 19.9 L Total CO2 20 21 Base Excess -4 L -5 L O2 Saturation 94 L 95 O2 % 4.0 100.0 ABG pCO2 26.2 L 32.7 L ABG pO2 63 L 74 L Erik Test N/A N/A Respiration Rate 16 O2 Delivery Device Cannula ET Tube Vent Mode Not entered AC Tidal Volume 500.0 POC PEEP 5 Radiography Diagnostic Testing: Radiology Impression Venous Doppler Study 07/10/24 04:02 Interpretation Summary Deep veins of the lower extremities are bilaterally patent and compressible segmentally. There is no evidence of deep vein thrombosis on either side. Valvular competence appears intact within the proximal deep venous systems bilaterally. The great saphenous veins appear bilaterally patent and compressible segmentally. Ordering Physician: Rc Carrillo Referring Physician: [facility] Performed By: Dakota Hou RVT Chest X-Ray 07/11/24 07:29 IMPRESSION: Limited inspiratory effort with evidence of bibasilar atelectasis more prominent at the left lung base. Blunting of the left costophrenic angle. Gaseous distention of the stomach. Reading Location: [id number] Chest X-Ray 07/11/24 10:15 IMPRESSION: Endotracheal tube tip is 3.5 cm above the zack, acceptable position. The tip of the feeding tube is below the diaphragm, within the stomach. Reading Location: [id number] Physical Exam Const Constitutional Narrative: Patient is sedated and on the ventilator General Appearance: well developed HEENT normocephalic, head/scalp atraumatic and moist oral mucous membranes Eyes PERRL, EOMs intact bilaterally and conjunctivae normal Neck supple, no JVD and thyroid normal General: trachea midline Resp no retractions and clear to auscultation bilaterally Auscultation: Negative for rales, rhonchi or wheezes Cardio regular rate, regular rhythm, S1 normal heart sound, S2 normal heart sound, no murmurs, no rub and no gallops GI normal to inspection, nondistended, normoactive bowel sounds, soft to palpation, non-tender and non-distended Extremity no clubbing, cyanosis or edema Skin no rashes or lesions noted General Skin Exam: no breakdown Neuro Neuro Narrative: Patient is sedated and on the ventilator Psych Psych Narrative: Patient is sedated and on the ventilator Assessment & Plan Assessment/Plan (1) Respiratory failure with hypoxia: (2) Alcohol withdrawal: QUALIFIERS: Complication of substance-induced condition: with unspecified complication Qualified Code(s): F10.939 - Alcohol use, unspecified with withdrawal, unspecified PLAN: Plan 1. Acute hypoxic respiratory failure-exact etiology unclear at this point, it does not appear that the patient has pneumonia, critical care is participating in his care 2. Alcohol induced pancreatitis-patient will receive IV fluids and supportive care. #3 acute alcohol withdrawal-patient is currently sedated and on the ventilator #4 essential hypertension-blood pressure will be monitored, patient will receive IV medication for hypertension if needed #4 seizure disorder-patient is on Vimpat #5 GERD-patient will be placed on lansoprazole down his NG tube #6 hypomagnesemia-patient was given magnesium replacement Total clinical time spent by myself addressing the patient's medical issues, reviewing his data, and collaborating with patient's care team: 35 minutes Charges/Coding Visit Charges Inpatient E&M: 99981 Subs Hosp L2
[2024-07-11] MEDS: Dexmedetomidine 1,000 mcg in 0.9% NS 240 mL 30.4 MCG CONT INF (14:39)
[2024-07-11] MEDS: fentaNYL drip 100 ML 20 MCG CONT INF ×2 (16:24→21:31)
[2024-07-11] MEDS: Norepinephrine 8 MG in 0.9% Normal Saline (250mL Bag) 242 ML 9.4 MG CONT INF (17:00)
[2024-07-11] MEDS: Metoprolol Tartrate 50 MG Tablet PO (17:51)
[2024-07-11] MEDS: Lansoprazole 15 MG Capsule.DR 30 MG GT (20:44)
[2024-07-11] MEDS: Chlorhexidine 15 ML PO (20:55)
--- NOTE | 2024-07-11 22:12 | NURSING ---
Axillary temp 103.1. Stubbs replaced with a core temp stubbs. Temp increased quickly to 106.1. Precedex paused. Dr. Carrillo notified, no Tylenol order at this time d/t liver enzymes elevated. Propofol ordered to replace precedex for sedation.
[2024-07-11] MEDS: Propofol 10MG/Ml 1,000 MG/100 ML Bottle 4.9 MG CONT INF (22:25)
[2024-07-11] MEDS: Ibuprofen 100 MG/5 ML UDC 200 MG PO (22:37)
[2024-07-12] VITALS (35 sets, daily range): BP systolic 80–143; BP diastolic 58–102; PULSE 94–127; RESP 16–21; TEMP 37.9–39.3; O2SAT 94–100; BMI 29.8
[2024-07-12] MEDS: CHLORHEXIDINE GLUC 2% CLOTH 1 EACH TOWELETTE TOPICAL (00:14)
[2024-07-12] MEDS: 0.9% Saline Lock 10 ML Syringe IV ×2 (00:15→04:49)
[2024-07-12] MEDS: Lacosamide Solution 100 MG/10 ML UDC 200 MG GT (00:41)
--- NOTE | 2024-07-12 01:19 | RAD_ITS ---
PROCEDURE: CHEST 1 VIEW (PORTABLE) REASON FOR EXAM: Respiratory failure TECHNIQUE: 2 frontal portable views of the chest COMPARISON: Yesterday FINDINGS: Endotracheal tube tip is 4 cm above the zack. May consider advancing the endotracheal tube 2 cm with repeat radiograph afterwards if not already repositioned. There is now a left subclavian central line with tip projecting over the right atrium. No evidence of pneumothorax identified. Nasogastric tube tip within the stomach again seen. Lung volumes again appear low. Possible left base retrocardiac atelectasis, collapse and possible trace left pleural effusion. Right lung appears clear. Pulmonary vascularity appears within limits. RAD/Chest 1 View (Portable) IMPRESSION: Endotracheal tube tip is 4 cm above the zack. May consider advancing the endo tracheal tube 2 cm with repeat radiograph afterwards if not already repositioned. There is now a left subclavian central line with tip projecting over the right atrium. No evidence of pneumothorax identified. Reading Location: [id number]
[2024-07-12] MEDS: levoFLOXacin IV 500 MG/100 ML BAG 100 MG IV (01:58)
--- NOTE | 2024-07-12 01:58 | CT_ITS ---
PROCEDURE: CT CHEST, ABD, PELVIS WO CONT REASON FOR EXAM: Possibly infection, elevated liver enzymes. TECHNIQUE: Chest CT without intravenous contrast and 3D reconstructions. Abdomen and pelvis CT using the same contrast dose. CONTRAST: CT abdomen/pelvis with IV contrast dated 07/09/2024, CTA chest with and without contrast dated 07/09/2024 COMPARISON: CT abdomen/pelvis with IV contrast dated 07/09/2024. FINDINGS: Endotracheal tube, enteric tube are present. Tip of the enteric tube is within the stomach. Tip of the endotracheal tube is approximately 2-3 cm from the zack. A left upper extremity PICC line is present with its tip within the right atrium. There has been interval development of small bilateral pleural effusions, left greater than right. There is compressive atelectasis at the lung bases. There is no pneumothorax. No suspicious mass is seen within the aerated portions of the lungs. There is no pericardial effusion. The heart is mildly prominent. No large mediastinal or axillary adenopathy is present. There is no free air within the abdomen or pelvis. Small to moderate abdominal ascites is present, which is significantly worsened when compared to the prior examination. The unenhanced liver is borderline prominent. High-density material seen within the gallbladder, may be due to vicarious contrast excretion from prior examination. The spleen, bilateral adrenal glands are within normal limits. The pancreas is diffusely markedly edematous. There is large amount of fluid within the peripancreatic region. These findings are overall severely worsened when compared to prior examination from 07/09/2024. These fluid tracts into the retroperitoneum within the anterior pararenal spaces and tracks down into the pelvis. There is marked infiltrative changes noted around the location of the pancreas. It is now difficult to delineate the borders of the pancreas on this examination. These findings are worrisome for severe marked worsening of acute pancreatitis with moderate to high suspicion of pancreatic necrosis. Correlate clinically and with lipase levels. Consider follow-up examination with IV contrast. The unenhanced kidneys are without evidence of hydronephrosis obstructive uropathy. 4 mm calculi seen within the upper pole of left kidney. A Marroquin catheter is present within the decompressed urinary bladder.. The prostate is nonenlarged. There are prominent small bowel loops present containing fluid. Bowel loops measures up to 3.8 cm. These findings may represent ileus versus developing small bowel obstruction. These findings are new since prior examination. The appendix is difficult to visualized. There are no acute osseous abnormalities present. CT/CT Chest, Abd, Pelvis WO Cont IMPRESSION: Limited examination due to lack of oral or IV contrast. Findings are worrisome for severe pancreatitis, markedly progressed since prior examination. There is moderate to high suspicious for pancreatic necrosis. Recommend surgical consultation. Prominent small bowel loops likely related to ileus versus developing small bow el obstruction. This finding is new. Small abdominopelvic ascites, which may be related to ongoing pathology within the pancreas. Gzvtj-xj-opdkmkxn bilateral pleural effusions, hifz-ntjcohx-ascg-right with ass ociated compressive atelectasis within the lungs. This is new since prior. Underlying pneumonia can not be ruled out. Other findings as above. One or more dose reduction techniques were used (e.g., Automated exposure contr ol, adjustment of the mA and/or kV according to patient size, use of iterative reconstruction technique). Reading Location: [id number]
[2024-07-12] MEDS: Vancomycin HCl 2,000 MG in 0.9% Normal Saline (500mL Bag) 500 ML 250 MG IV (03:16)
--- NOTE | 2024-07-12 03:54 | PCM.RX.CS ---
Consult Antibiotic Management Pharmacy has been consulted to manage selected antibiotic: Vancomycin Type of Intervention Type of Consult: New start Labs Labs: Sodium 137 mmol/L (133-145) 07/11/24 03:35 Potassium 4.0 mmol/L (3.3-5.1) 07/11/24 03:35 Chloride 104 mmol/L (98-107) 07/10/24 05:59 Carbon Dioxide 17.8 mmol/L (22.0-29.0) L 07/11/24 03:35 Anion Gap 20 (5-15) H 07/11/24 03:35 BUN 24 mg/dL (4-19) H 07/11/24 03:35 Creatinine 2.0 mg/dL (0.8-1.3) H 07/11/24 03:35 Est GFR (MDRD) Af Amer 134 mL/min (>60) 07/10/24 05:59 Est GFR (MDRD) Non-Af 44 (>60) L 07/11/24 03:35 BUN/Creatinine Ratio 12.3 RATIO (10-20) 07/11/24 03:35 Glucose 154 mg/dL (70-99) H 07/11/24 03:35 Microbiology Microbiology: Microbiology 07/09/24 15:45 Mucosa - Nose SARS-CoV-2, Influenza & RSV (PCR) - Final Dosing Weight Weight used for dosin.5 kg Estimated Creatinine Clearance Estimated Creatinine Clearance: 52 Goal Trough Goal Trough: 15-20 mcg/mL Pharmacy Plan for Drug Dosing Pharmacy Plan for Drug Dosing: Pharmacy Service will continue to monitor and adjust dosing as required. Follow-Up Labs Follow-Up Labs: Trough: Vancomycin Date/Time Labs Ordered Labs to be done on [date and time ordered]: 07/13/24 @1500
[2024-07-12 04:11] LABS: Absolute Lymphocyte Count 2.19 X10^3/uL (0.83-4.51); Absolute Neutrophil Count 9.1 X10^3/uL (2.0-7.7); Basophil# 0.04 X10^3/uL; Basophil% 0.3 % (0-1); Eosinophil# 0.11 X10^3/uL; Eosinophils% 0.9 % (0-5); Hematocrit 46.2 % (40-54); Hemoglobin 15.1 g/dL (13.0-16.5); Lymphocyte # 2.19 X10^3/ul (0.83-4.51); Lymphocyte % 17.5 % (19-41); Mean Corp Hgb Conc 32.7 g/dL (32-36); Mean Corpuscular Hgb 32.5 pg (27.0-32.0); Mean Corpuscular Volume 99.4 fL (80-94); Mean Platelet Vol. 11.7 fl (6.2-12.0); Monocyte# 0.91 X10^3/uL; Monocyte% 7.3 % (0-10); NRBC Flagged by Analyzer 0 % (0-5); Neutrophil # 9.08 X10^3/uL (2.7-7.7); Neutrophil % 72.3 % (47-70); Platelet Count 104 K/mm3 (150-450); RBC Distribution Width CV 12.6 % (11.6-14.6); RBC Distribution Width SD 46.5 fl (35.1-43.9); Red Blood Count 4.65 M/mm3 (4.6-6.2); White Blood Count 12.5 K/mm3 (4.4-11.0)
--- NOTE | 2024-07-12 04:28 | PCM.HOSP.N ---
Hospitalist Note I was contacted by the POSTAL SERVICE MAIL PROCESSOR and informed this patient spike a temperature up to 106.4 degrees Fahrenheit with patient not currently on antibiotics with patient having a markedly distended abdomen. His dexmedetomidine was stopped in case of possible malignant hyperthermia with propofol started in its stead for sedation while he is on the ventilator. With [employer] MAIL PROC[employer] reporting patient defervesced after being started on antibiotics. A STAT CT scan of the chest, abdomen and pelvis without contrast was ordered with obvious evidence of bilateral effusions and suspected Pneumonia likely due to Aspiration with previous CT noting 'lung bases clear. MRCP recommended by radiologist on admission was notably cancelled along with GI consultation. Patient was restarted on IV levofloxacin and IV vancomycin with IV metronidazole reordered to cover anaerobes in case of aspiration which is suspected to be the reason he developed acute respiratory failure and required intubation, with new blood cultures checked before this round of antibiotics was started. CT scan revealed findings are worrisome for severe pancreatitis, markedly progressed since prior examination. There is moderate to high suspicion for Pancreatic Necrosis. Recommend surgical consultation. Prominent small bowel loops likely related to ileus versus developing small bowel obstruction. This finding is new. Small abdominopelvic ascites, which may be related to ongoing pathology within the pancreas. Prhqe-aq-xxrcnuba bilateral pleural effusions, vafx-yozsctu-ifsp-right with associated compressive atelectasis within the lungs. This is new since prior. Underlying Pneumonia can not be ruled out. Radiologist recommended surgical consultation has been ordered along with a reordering of the gastroenterology consultation. [employer] PROC[employer]OR was updated with plan. [facility] Imaging Services [address] [place] [id number] Chest, Abd, Pelvis WO Cont MR#: [id number] Acct: [id number] Name: THERESA JACOBSON Rep #: [id number] : 1985 M 38 From: Jorge A Herrera MD PCP: [facility] Status: ADM IN Study: CT Chest, Abd, Pelvis WO Cont Date of Exam: 07/12/24 Exam# [id number] Ordering Dr: Rc Carrillo DO PROCEDURE: CT CHEST, ABD, PELVIS WO CONT REASON FOR EXAM: Possibly infection, elevated liver enzymes. TECHNIQUE: Chest CT without intravenous contrast and 3D reconstructions. Abdomen and pelvis CT using the same contrast dose. CONTRAST: CT abdomen/pelvis with IV contrast dated 07/09/2024, CTA chest with and without contrast dated 07/09/2024 COMPARISON: CT abdomen/pelvis with IV contrast dated 07/09/2024. FINDINGS: Endotracheal tube, enteric tube are present. Tip of the enteric tube is within the stomach. Tip of the endotracheal tube is approximately 2-3 cm from the zack. A left upper extremity PICC line is present with its tip within the right atrium. There has been interval development of small bilateral pleural effusions, left greater than right. There is compressive atelectasis at the lung bases. There is no pneumothorax. No suspicious mass is seen within the aerated portions of the lungs. There is no pericardial effusion. The heart is mildly prominent. No large mediastinal or axillary adenopathy is present. There is no free air within the abdomen or pelvis. Small to moderate abdominal ascites is present, which is significantly worsened when compared to the prior examination. The unenhanced liver is borderline prominent. High-density material seen within the gallbladder, may be due to vicarious contrast excretion from prior examination. The spleen, bilateral adrenal glands are within normal limits. The pancreas is diffusely markedly edematous. There is large amount of fluid within the peripancreatic region. These findings are overall severely worsened when compared to prior examination from 07/09/2024. These fluid tracts into the retroperitoneum within the anterior pararenal spaces and tracks down into the pelvis. There is marked infiltrative changes noted around the location of the pancreas. It is now difficult to delineate the borders of the pancreas on this examination. These findings are worrisome for severe marked worsening of acute pancreatitis with moderate to high suspicion of pancreatic necrosis. Correlate clinically and with lipase levels. Consider follow-up examination with IV contrast. The unenhanced kidneys are without evidence of hydronephrosis obstructive uropathy. 4 mm calculi seen within the upper pole of left kidney. A Marroquin catheter is present within the decompressed urinary bladder.. The prostate is nonenlarged. There are prominent small bowel loops present containing fluid. Bowel loops measures up to 3.8 cm. These findings may represent ileus versus developing small bowel obstruction. These findings are new since prior examination. The appendix is difficult to visualized. There are no acute osseous abnormalities present. CT/CT Chest, Abd, Pelvis WO Cont IMPRESSION: Limited examination due to lack of oral or IV contrast. Findings are worrisome for severe pancreatitis, markedly progressed since prior examination. There is moderate to high suspicious for pancreatic necrosis. Recommend surgical consultation. Prominent small bowel loops likely related to ileus versus developing small bowel obstruction. This finding is new. Small abdominopelvic ascites, which may be related to ongoing pathology within the pancreas. Nilvc-ef-mcjlqhns bilateral pleural effusions, gwqu-mjtskmo-ljpr-right with associated compressive atelectasis within the lungs. This is new since prior. Underlying pneumonia can not be ruled out. Other findings as above. One or more dose reduction techniques were used (e.g., Automated exposure control, adjustment of the mA and/or kV according to patient size, use of iterative reconstruction technique). Reading Location: [id number] CC: Dr. Rc Carrillo, DO; [facility] ~ Crime Scene Photographer: Signed
[2024-07-12 04:50] LABS: Magnesium 2.9 mg/dL (1.5-2.2); Phosphorus 4.9 mg/dL (2.7-4.5)
[2024-07-12] MEDS: Norepinephrine 8 MG in 0.9% Normal Saline (250mL Bag) 242 ML 9.4 MG CONT INF (04:50)
[2024-07-12 05:03] LABS: Triglycerides 244 mg/dL
[2024-07-12 05:15] LABS: ALB/GLOB Ratio 1.3 RATIO (0.9-2.4); AST(SGOT) 179 U/L (<=37); Alanine Aminotransfer ALT/SGPT 59 U/L (<=46); Albumin, Serum 3.1 g/dL (3.5-5.0); Alkaline Phosphatase 36 U/L (40-129); Anion Gap 17 (5-15); BUN 55 mg/dL (4-19); BUN/Creat Ratio 27.5 RATIO (10-20); Calcium 6.3 mg/dL (7.6-11.0); Carbon Dioxide 16.3 mmol/L (22.0-29.0); Chloride 101 mmol/L (96-108); EST Glomerular Filtration Rate 43 (>60); Estimated Creatinine Clearance 53.63 ml/min; Globulin 2.3 g/dL (2.2-4.2); Glucose 140 mg/dL (70-99); Potassium 3.7 mmol/L (3.3-5.1); Protein, Total 5.4 g/dL (5.9-8.4); Sodium Level 134 mmol/L (133-145); Total Bilirubin 1.51 mg/dL (0.00-1.30)
[2024-07-12 05:16] LABS: CPK Total, Creatine Kinase 4541 U/L (24-195)
[2024-07-12] MEDS: fentaNYL drip 100 ML 10 MCG CONT INF ×2 (05:30→15:46)
[2024-07-12] MEDS: metroNIDAZOLE 500 MG/100 ML BAG 100 MG IV ×2 (05:30→15:13)
--- NOTE | 2024-07-12 05:46 | RAD_ITS ---
PROCEDURE: CHEST 1 VIEW (PORTABLE) REASON FOR EXAM: Endotracheal tube advancement. TECHNIQUE: Single frontal image including the chest. COMPARISON: Chest x-ray performed on 07/12/2024. FINDINGS: Endotracheal tube is present with tip approximately 4 cm from the zack at the level of clavicle heads. A left upper extremity PICC line remains with tip overlying the right atrium. An enteric tube is noted with tip overlying the stomach. The cardiac silhouette is stable in size. Stable bibasilar pulmonary airspace opacities are present, yehh-blipbzw-pysj-right. No pneumothorax identified. RAD/Chest 1 View (Portable) IMPRESSION: Interval advancement of the endotracheal tube with tip now the level of the cla vicular heads. Pulmonary airspace disease if unimproved. Reading Location: [id number]
[2024-07-12 06:01] LABS: Base Excess -11 mmol/L (-2 to +2); Bicarbonate 14.4 mmol/L (22-26); Blood Gas Specimen Type ART; Mode AC; O2 Delivery Device Adult Vent; PEEP 5; PO2 90 mmHG (75-100); RR 16; SITE L Brach; SO2 97 % (95-99); Total Carbon Dioxide 15 mmol/L; pCO2 26.9 mmHg (35-45); pH 7.34 (7.35-7.45)
--- NOTE | 2024-07-12 07:50 | PCM.PN.INT ---
Assessment & Plan Assessment/Plan (1) Respiratory failure with hypoxia: (2) Alcohol withdrawal: QUALIFIERS: Complication of substance-induced condition: with unspecified complication Qualified Code(s): F10.939 - Alcohol use, unspecified with withdrawal, unspecified (3) Alcoholic pancreatitis: QUALIFIERS: Chronicity: acute Acute pancreatitis complication: no infection or necrosis Qualified Code(s): K85.20 - Alcohol induced acute pancreatitis without necrosis or infection (4) KARAN (acute kidney injury): PLAN: Plan RECOMMENDATIONS: 1. Continue assist-control mode of mechanical ventilation. Wean FiO2 and PEEP as tolerated. 2. Continue aggressive volume resuscitation. 3. Continue current sedation regimen. 4. Continue PPI therapy along with thiamine and folic acid repletion. 5. Ongoing electrolyte repletion as needed. 6. Obtain follow-up CT abdomen/pelvis with contrast. 7. Await general surgery and gastroenterology recommendations. 8. Continue empiric broad-spectrum antimicrobials. IMPRESSIONS: 1. Acute hypoxemic respiratory failure Most likely secondary to underlying pleural effusions coupled with mismatch between oxygen delivery and consumption in the setting of an increased metabolic state related to acute alcohol withdrawal and sepsis. The patient was ultimately intubated on July 11. He appears stable from a respiratory perspective. Plan to continue assist-control mode of mechanical ventilation. I do suspect that the pleural effusions noted on his CT imaging are likely related to translocation of his significant ascites with compressive atelectasis. My suspicion for underlying pneumonia is low. However, cultures are currently pending. Antimicrobials will be continued accordingly. 2. Sepsis/alcoholic pancreatitis Clinical concern for underlying necrotizing pancreatitis. Lower suspicion for underlying pneumonia based upon CT imaging results. Broad-spectrum antimicrobials were initiated overnight. Cultures are currently pending. At this time, the patient is hemodynamically stable, without the need for ongoing vasopressor support. Will plan to continue aggressive volume resuscitation, given propensity for third spacing in the setting of pancreatitis. Ultimately, given the unclear extent of the patient's pancreatitis on CT imaging, without contrast, we will plan to repeat CT abdomen/pelvis with contrast for further clarification. Gastroenterology has been consulted to evaluate the patient. Depending on the presence and extent of necrotizing pancreatitis on follow-up imaging, the patient may require transfer to a tertiary care facility. 3. Acute alcohol withdrawal Continue CIWA monitoring per protocol along with thiamine and folate repletion. Continue current sedation regimen along with aggressive electrolyte repletion as needed. 4. Acute kidney injury Most likely prerenal in etiology in the setting of pancreatitis. Additional IV fluid resuscitation has been ordered. Continue to monitor urine output. No current indication for renal replacement therapy. 5. History of seizure disorder/hypertension Complicates care, management, recovery and prognosis. Continue home medications as indicated. TIME: 40 minutes of critical care time, independent of procedures, was spent addressing the patient's acute hypoxemic respiratory failure, sepsis, acute alcohol withdrawal, alcoholic pancreatitis, acute kidney injury, review of all data and collaboration with the care team. Subjective Subjective The patient was seen and examined at the bedside this morning. Events from the last 24 hours have been reviewed. Overnight, the patient developed high-grade fever with a Tmax of 106.4 ?F. Accordingly, cultures were obtained and antimicrobials were initiated. CT imaging of the chest, abdomen and pelvis was obtained. There were findings suggestive of severe, progressive pancreatitis. However, the evaluation for underlying necrosis was limited by the fact that IV contrast was not administered. Bilateral pleural effusions were also noted. The patient's sedation regimen was transitioned to propofol and fentanyl. In addition to the aforementioned, the patient was transiently on Levophed overnight, which was ultimately weaned off this morning. White blood cell count is mildly elevated at 12,000. Hemoglobin is stable. Platelet count is dropped to 104,000. Chemistry profile was notable for a bicarbonate of 16, anion gap of 17 and creatinine of 2.0. Lactate was within normal limits at 1.5. CK is elevated at 4541. Lipase has significantly improved to 245. Procalcitonin is elevated at 9.3. Objective Data Objective Data The patient's most recent lab work, culture data and imaging studies have all been personally reviewed. Blood, urine and sputum cultures are pending. Vital Signs: Vital Signs Temp Pulse Resp BP Pulse Ox O2 Del Method O2 Flow Rate 101.5 F H 127 H 20 H 125/88 H 96 Mechanical Ventilator 4 07/12/24 07:00 07/12/24 07:28 07/12/24 07:28 07/12/24 07:00 07/12/24 07:28 07/12/24 07:00 07/11/24 09:00 FiO2 45 07/12/24 07:28 Oxygen Flow Rate (L/min) 4 Oxygen Delivery Method Mechanical Ventilator Weight: 190 lb 11.198 oz Body Mass Index (BMI) 29.8 Intake & Output: Intake and Output for Last 24 Hours 07/10/24 07/11/24 07/12/24 23:59 23:59 23:59 Intake Total 5460.2 / 5462.78 5151.6333 / 5521.3733 1380.73 / 1380.73 Output Total 125 / 125 700 / 700 350 / 350 Balance 5335.2 / 5337.78 4451.6333 / 4821.3733 1030.73 / 1030.73 Lab / Micro Data Attestation: I reviewed the patient's lab results. 07/12/24 03:45 07/12/24 03:45 Labs: Laboratory Results - last 24 hr 07/10/24 05:59: Diff Path Review Reviewed 07/11/24 03:35: Lipase 1322 H 07/12/24 03:45: WBC 12.5 H, RBC 4.65, Hgb 15.1, Hct 46.2, MCV 99.4 H, MCH 32.5 H, MCHC 32.7, RDW Std Deviation 46.5 H, RDW Coeff of Cecily 12.6, Plt Count 104 L, MPV 11.7, Immature Gran % (Auto) 1.700 H, Neut % (Auto) 72.3 H, Lymph % (Auto) 17.5 L, [place] % (Auto) 7.3, Eos % (Auto) 0.9, Baso % (Auto) 0.3, Absolute Neuts (auto) 9.1 H, Absolute Lymphs (auto) 2.19, Nucleated RBC % 0, Sodium 134, Potassium 3.7, Chloride Direct 101, Carbon Dioxide 16.3 L, Anion Gap 17 H, BUN 55 H, Creatinine 2.0 H, Estim Creat Clear Calc 53.63, Est GFR (MDRD) Non-Af 43 L, BUN/Creatinine Ratio 27.5 H, Glucose 140 H, Calcium 6.3 L*, Phosphorus 4.9 H, Magnesium 2.9 H, Total Bilirubin 1.51 H, AST 179 H, ALT 59 H, Alkaline Phosphatase 36 L, Total Creatine Kinase 4541 H, Total Protein 5.4 L, Albumin 3.1 L, Globulin 2.3, Albumin/Globulin Ratio 1.3, Triglycerides 244 H Micro: Microbiology 07/09/24 15:45 Mucosa - Nose SARS-CoV-2, Influenza & RSV (PCR) - Final ABG Data ABG results: ABG 07/11/24 07/12/24 12:01 05:56 Specimen Type ART ART Sample Site L Brach L Brach pH 7.39 7.34 L Bicarbonate Actual 19.9 L 14.4 L Total CO2 21 15 Base Excess -5 L -11 L O2 Saturation 95 97 O2 % 100.0 45.0 ABG pCO2 32.7 L 26.9 L ABG pO2 74 L 90 Erik Test N/A N/A Respiration Rate 16 16 O2 Delivery Device ET Tube Adult Vent Vent Mode AC AC Tidal Volume 500.0 500.0 POC PEEP 5 5 Radiography Diagnostic Testing: Radiology Impression Chest X-Ray 07/11/24 07:29 IMPRESSION: Limited inspiratory effort with evidence of bibasilar atelectasis more prominent at the left lung base. Blunting of the left costophrenic angle. Gaseous distention of the stomach. Reading Location: [id number] Chest X-Ray 07/11/24 10:15 IMPRESSION: Endotracheal tube tip is 3.5 cm above the zack, acceptable position. The tip of the feeding tube is below the diaphragm, within the stomach. Reading Location: [id number] Chest X-Ray 07/12/24 01:19 IMPRESSION: Endotracheal tube tip is 4 cm above the zack. May consider advancing the endotracheal tube 2 cm with repeat radiograph afterwards if not already repositioned. There is now a left subclavian central line with tip projecting over the right atrium. No evidence of pneumothorax identified. Reading Location: [id number] Chest/Abdomen/Pelvis CT 07/12/24 01:58 IMPRESSION: Limited examination due to lack of oral or IV contrast. Findings are worrisome for severe pancreatitis, markedly progressed since prior examination. There is moderate to high suspicious for pancreatic necrosis. Recommend surgical consultation. Prominent small bowel loops likely related to ileus versus developing small bowel obstruction. This finding is new. Small abdominopelvic ascites, which may be related to ongoing pathology within the pancreas. Cfbds-dd-kpzyhyrm bilateral pleural effusions, weqn-uenzzle-xzag-right with associated compressive atelectasis within the lungs. This is new since prior. Underlying pneumonia can not be ruled out. Other findings as above. One or more dose reduction techniques were used (e.g., Automated exposure control, adjustment of the mA and/or kV according to patient size, use of iterative reconstruction technique). Reading Location: [facility] Chest X-Ray 07/12/24 05:46 IMPRESSION: Interval advancement of the endotracheal tube with tip now the level of the clavicular heads. Pulmonary airspace disease if unimproved. Reading Location: [facility] Physical Exam Const Constitutional Narrative: Intubated, sedated and mechanically ventilated. is present at the bedside. General Appearance: patient mechanically ventilated HEENT normocephalic and head/scalp atraumatic Mouth: endotracheal tube in place and OG tube in place Eyes PERRL, EOMs intact bilaterally and conjunctivae normal Neck supple General: trachea midline Chest inspection of chest normal Resp Effort and Inspection: tachypneic Auscultation: diminished lung sounds; Negative for rales, rhonchi or wheezes Cardio S1 normal heart sound and S2 normal heart sound Rate: tachycardic GI soft to palpation Inspection: abdominal distention Palpation: Negative for tender Extremity no clubbing, cyanosis or edema Skin no rashes or lesions noted Neuro Sensorium / Orientation: sedated on vent Charges/Coding Procedures Hospitalists Procedures: [id number] Critical Care 1st Hr
--- NOTE | 2024-07-12 07:51 | NURSING ---
Dr. Noe made aware that Dr. Sam is out today so unable to complete consult on pt.
[2024-07-12 09:34] LABS: Lipase 245 U/L (13-75)
--- NOTE | 2024-07-12 09:35 | CON.PCM.SX_ITS ---
Assessment & Plan Assessment/Plan (1) Alcoholic pancreatitis: QUALIFIERS: Chronicity: acute Acute pancreatitis complication: no infection or necrosis Qualified Code(s): K85.20 - Alcohol induced acute pancreatitis without necrosis or infection PLAN: I have been consulted in conjunction with Dr. Cleaning. He has independently evaluate this patient. Patient is a 38 y/o M who presented with abdominal pain, nausea, vomiting. Patient found to have acute pancreatitis on admission. Patient with a new history of seizure activity at the end of 2022. Patient with a history of alcohol abuse with 4-6 drinks daily approximately. Patient was noted to spike a fever overnight and repeat images of chest/ab/pel were obtained. Patient's renal function would not support contrast at this time. Consult was placed to general surgery for evaluation and treatment plan for worsening pancreatitis with the suspicion for necrotic pancreatitis. Patient currently not having any abdominal, lipase at 245, lactic acid pending. Dr. Cleaning has spoke with the hospitalist and furniture painter recommending transfer for the patient to a tertiary facility due to not having hepatobiliary and pancreatic specialties here locally. With the worsening severity of the patient's acute alcoholic pancreatitis, patient would be better served at a facility that may have these specialities available. Recommend continued aggressive IV resuscitation and IV antibiotics. Await blood cultures and possible repeat future CT scan of ab/pel prior to discontinuing antibiotics. No surgical intervention is being recommended. Patient's has had the opportunity to ask and have questions answered. Patient's verbally understands and agrees with transferring to a tertiary facility. It has been explained to the patient's that patient may be accepted, however bed availability may prolong patient's stay at out facility. We will continue to monitor and assist with treatment as long as patient remains at our facility. Thank you for allowing us to participate in this patient's care. HPI Consult Data Date of Consult: 07/12/24 HPI Narrative Reason for Consultation: Acute alcoholic pancreatitis HPI Narrative: THERESA JACOBSON, is a 38 M who presented with a 2 day history of worsening nausea, vomiting and abdominal pain. Majority of the patient's history is from the chart and patient's as the patient is currently intubated with ET in place. Sedation has been decreased with patient being awake and able to acknowledge questioning. Patient has a history of alcohol abuse drinking 4-6 drinks per day per patient's . Patient's states recently, patient is trying to cut back on his drinking. He is trying to work with the [employer]. In April 2023, patient had 2 seizures which he has since been placed on Vimpat. Patient has a father history of seizures. He was also noted during that time he had stopped drinking 4-5 days prior due to GI upset with associate nausea and vomiting. [facility] as he is a [place] having served in [employer]. Patient suffers from PTSD and panic disorder. Per patient's , patient has not had any previous pancreatitis episodes previously. Patient denies any current abdominal pain. Patient was noted to spike a fever overnight with increased abdominal distention. A STAT CT of the chest/ab/pel was ordered. Patient was also placed on IV levofloxacin, vancomycin and metronidazole. Blood cultures were ordered prior to antibiotics being started. CT scan results of chest/ab/pel without contrast demonstrated: IMPRESSION: Limited examination due to lack of oral or IV contrast. Findings are worrisome for severe pancreatitis, markedly progressed since prior examination. There is moderate to high suspicious for pancreatic necrosis. Recommend surgical consultation. Prominent small bowel loops likely related to ileus versus developing small bowel obstruction. This finding is new. Small abdominopelvic ascites, which may be related to ongoing pathology within the pancreas. Ssvxh-qm-uuxcynol bilateral pleural effusions, bsuj-rzmuryb-eepn-right with associated compressive atelectasis within the lungs. This is new since prior. Underlying pneumonia can not be ruled out. Labs on 07/12: WBC 12.5, Neut 72.3. T. Bili 1.51 which has decreased from previous labs. AST 179, ALT 59, Alk Phos 36. Lipase is 245. Lactic acid pending. No previous abdominal surgeries. [facility] Medical History Panic disorder PTSD (post-traumatic stress disorder) Anxiety Bite from insect History of GI bleed Gastric reflux Non-smoker Chronic cough Leg cramps Hypertension Dysphagia Diarrhea Rectal bleeding Encounter for screening for COVID-19 Home Medications ?Medication ?Instructions ?Recorded ?Last Taken ?Type multivitamin 1 tab PO DAILY 03/10/23 Unkn own History lacosamide 200 mg capsule,extended 200 mg PO BID 07/09 Unknown History release 24 hr loperamide 2 mg tablet 2 mg PO QODAY 07/09/24 Unkno wn History (Anti-Diarrheal (loperamide)) Allergy/AdvReac Type Severity Reaction Status Date / Time amoxicillin Allergy Unknown Verified 05/09/23 06:12 carbamazepine Allergy Rash Verified 07/09/24 14:48 Family History Father Seizures Surgical History S/P wisdom tooth extraction Social History Smoking Status: Never smoker alcohol intake: never ROS Review of Systems ROS Unobtainable: due to endotracheal tube Physical Exam Const alert HEENT normocephalic Mouth: endotracheal tube in place and OG tube in place Eyes PERRL Neck full ROM Chest inspection of chest normal Resp normal respiratory effort Cardio Rate: tachycardic GI GI Narrative: Abdomen- soft, distended, nontender to palpation no CVA tenderness Back/Spine no CVA tenderness Extremity normal to inspection Skin no rashes or lesions noted Neuro no focal motor deficits and no sensory deficits noted Psych cooperative Lab / Micro Data 07/12/24 03:45 07/12/24 03:45 Labs: Laboratory Results - last 24 hr 07/10/24 05:59: Diff Path Review Reviewed 07/11/24 03:35: Lipase 1322 H 07/12/24 03:45: WBC 12.5 H, RBC 4.65, Hgb 15.1, Hct 46.2, MCV 99.4 H, MCH 32.5 H , MCHC 32.7, RDW Std Deviation 46.5 H, RDW Coeff of Cecily 12.6, Plt Count 104 L, MPV 11.7, Immature Gran % (Auto) 1.700 H, Neut % (Auto) 72.3 H, Lymph % (Auto) 17.5 L, [place] % (Auto) 7.3, Eos % (Auto) 0.9, Baso % (Auto) 0.3, Absolute Neuts (auto) 9.1 H, Absolute Lymphs (auto) 2.19, Nucleated RBC % 0, Sodium 134, Potassium 3.7, Chloride Direct 101, Carbon Dioxide 16.3 L, Anion Gap 17 H, BUN 55 H, Creatinine 2.0 H, Estim Creat Clear Calc 53.63, Est GFR (MDRD) Non-Af 43 L , BUN/Creatinine Ratio 27.5 H, Glucose 140 H, Calcium 6.3 L*, Phosphorus 4.9 H, Magnesium 2.9 H, Total Bilirubin 1.51 H, AST 179 H, ALT 59 H, Alkaline Phosphatase 36 L, Total Creatine Kinase 4541 H, Total Protein 5.4 L, Albumin 3.1 L, Globulin 2.3, Albumin/Globulin Ratio 1.3, Triglycerides 244 H 07/12/24 08:20: Lipase 245 H, Procalcitonin 9.30 H ABG Data ABG results: ABG 07/11/24 07/12/24 12:01 05:56 Specimen Type ART ART Sample Site L Brach L Brach pH 7.39 7.34 L Bicarbonate Actual 19.9 L 14.4 L Total CO2 21 15 Base Excess -5 L -11 L O2 Saturation 95 97 O2 % 100.0 45.0 ABG pCO2 32.7 L 26.9 L ABG pO2 74 L 90 Erik Test N/A N/A Respiration Rate 16 16 O2 Delivery Device ET Tube Adult Vent Vent Mode AC AC Tidal Volume 500.0 500.0 POC PEEP 5 5 Imaging Radiology Impression Chest X-Ray 07/11/24 10:15 IMPRESSION: Endotracheal tube tip is 3.5 cm above the zack, acceptable position. The tip of the feeding tube is below the diaphragm, within the stomach. Reading Location: [id number] Chest X-Ray 07/12/24 01:19 IMPRESSION: Endotracheal tube tip is 4 cm above the zack. May consider advancing the endotracheal tube 2 cm with repeat radiograph afterwards if not already repositioned. There is now a left subclavian central line with tip projecting over the right atrium. No evidence of pneumothorax identified. Reading Location: [id number] Chest/Abdomen/Pelvis CT 07/12/24 01:58 IMPRESSION: Limited examination due to lack of oral or IV contrast. Findings are worrisome for severe pancreatitis, markedly progressed since prior examination. There is moderate to high suspicious for pancreatic necrosis. Recommend surgical consultation. Prominent small bowel loops likely related to ileus versus developing small bowel obstruction. This finding is new. Small abdominopelvic ascites, which may be related to ongoing pathology within the pancreas. Hjatz-wd-cegivked bilateral pleural effusions, ejgp-oppodvm-tjgg-right with associated compressive atelectasis within the lungs. This is new since prior. Underlying pneumonia can not be ruled out. Other findings as above. One or more dose reduction techniques were used (e.g., Automated exposure control, adjustment of the mA and/or kV according to patient size, use of iterative reconstruction technique). Reading Location: [id number] Chest X-Ray 07/12/24 05:46 IMPRESSION: Interval advancement of the endotracheal tube with tip now the level of the clavicular heads. Pulmonary airspace disease if unimproved. Reading Location: [id number] Charges/Coding Visit Charges Inpatient E&M: 48689 Init Hosp L2
[2024-07-12] MEDS: Folic Acid 1 MG in 0.9% Normal Saline (50mL Bag) 50 ML 200 MG IV (09:46)
[2024-07-12] MEDS: Enoxaparin 40 MG/0.4 ML Syringe SC (09:47)
[2024-07-12] MEDS: Lactated Ringers 1,000 ML 150 ML IV ×2 (09:48→15:50)
[2024-07-12] MEDS: Metoprolol Tartrate 50 MG Tablet PO (09:48)
--- NOTE | 2024-07-12 09:51 | CASEMGMT ---
Addendum entered by Melanie Nazario 07/12/24 15:05: Call placed to [facility] [place] and he was updated that pt is transferring to [facility]. Original Note: RODERICK LUNA NOTE: Per Dr Noe and Dr Hunt, pt needs to transfer to tertiary facility. Pt has only [facility] benefits, no other insurance, as this was verified w/pt's yesterday. Call placed to Ray @ [place] transfer center and he spoke w/Dr Noe for clinical update. Per Ray, they do not have any ICU beds available @ [facility]. He states pt may transfer to any tertiary facility of choice and states [facility] [place] to arrange transportation as well, and this is all to be billed to the [facility]. Ray states he is pretty sure everything will be covered @ 100 % by the [place], including transportation, but then states, But don't quote me on that. made aware [facility] not [facility] & pt can transfer to any tertiary facility of choice. Dr Noe and Dr Hunt both made aware as well. states she does not have a preference of tertiary hospital. Sulema HAYESN RODERICK CM
--- NOTE | 2024-07-12 09:57 | CT_ITS ---
PROCEDURE: CT ABDOMEN AND PELVIS WITH INTRAVENOUS CONTRAST REASON FOR EXAM: Evaluate for necrosis of the pancreas. TECHNIQUE: Contiguous axial scans of 3.75 mm slice thicknesses. Sagittal and coronal reconstruction images were obtained. One or more dose reduction techniques were used (e.g., automated exposure control, adjustment of mA and/or kv according to patient size, use of iterative reconstruction technique). IV CONTRAST: Isovue-300, 94 mL. COMPARISON: CT abdomen and pelvis dated 07/12/2024. FINDINGS: Liver: Unremarkable. Gallbladder: Unremarkable. Spleen: Unremarkable. Pancreas: Edematous pancreas with hypodense areas throughout the pancreas suggesting loss of pancreatic tissue. Large amount of peripancreatic fluid primarily surrounding the body in the tail, fluid attenuation greater than water at 32 Hounsfield units. Fluid is again noted tracking into the retroperitoneum within the anterior pararenal spaces and extending into the pelvis. Fluid has increased since the previous study. Adrenals: Unremarkable. Kidneys: Kidneys excrete contrast material symmetrically. Right renal cyst measuring 2 cm. Bladder: Balloon tip Marroquin catheter in the urinary bladder. Reproductive Organs: Unremarkable. Bowel: Nasogastric tube courses to the stomach. Multiple fluid-filled and distended loops of small bowel with air-fluid levels. A zone of transition is not demonstrated. Areas seen in the colon. Appendix: Normal. Lymph nodes: No suspicious lymph node enlargement. Vasculature: Major vascular structures are unremarkable. Peritoneum / Retroperitoneum: Increase in the ascites since the previous study. Ascitic fluid in the pelvis has also increased. Bones: Unremarkable. Lower thorax: Bilateral pleural effusions, greater on the left. Bilateral lower lobe areas of consolidation with air bronchograms. CT/Abdomen/Pelvis W IV Cont ONLY IMPRESSION: 1. Findings are consistent with ACUTE NECROTIZING PANCREATITIS.. 2. Increased ascites when compared to the earlier study. 3. Multiple markedly distended loops of small bowel with air-fluid levels, mos t likely ileus. 4. Bilateral pleural effusions. 5. Compressive atelectasis versus pneumonia in the bilateral lower lobes. 6. Right renal cyst. 7. Nasogastric tube. Balloon tip Marroquin catheter. Reading Location: [place] [id number]
[2024-07-12] MEDS: Lacosamide 200 MG in 0.9% Normal Saline (50mL Bag) 50 ML 100 MG IV (10:02)
[2024-07-12] MEDS: Chlorhexidine 15 ML PO (10:08)
[2024-07-12 10:19] LABS: Lactic Acid 1.5 mmol/L (0.0-2.0)
--- NOTE | 2024-07-12 10:58 | CASEMGMT ---
Social Work SW met with pt's and emotional support provided. Yesenia, addiction therapist updated on pt status. STEVIE Oswald
[2024-07-12] MEDS: Vancomycin HCl 750 MG in 0.9% Normal Saline (250mL Bag) 250 ML 250 MG IV (15:46)
[2024-07-12] MEDS: Propofol 10MG/Ml 1,000 MG/100 ML Bottle 4.9 MG CONT INF (15:46)
--- NOTE | 2024-07-12 16:27 | NURSING ---
Report called to Lucy at [facility].
--- NOTE | 2024-07-12 16:37 | DS.PCM_ITS ---
Providers Date of Admission: 07/09/24 Date of Discharge: 07/12/24 Primary Care Physician: [facility] Consultations 07/11/24 07:26 Consult: [employer] / Pulmonary Medicine Routine Consulting Provider: Intensivists/Pulmonary Med Reason for Consult: Alcohol withdrawal increased respiratory distress EMERGENT Consult: No Notified: Yes Date Notified: 07/11/24 Time Notified: 07:28 Method of Notification: Verbal 07/12/24 05:01 Consult: General Surgery Routine Consulting Provider: [facility] Reason for Consult: suspected pancreatic necrosis, possible ileus vs. SBO EMERGENT Consult: No Notified: Yes Date Notified: 07/12/24 Time Notified: 05:01 Method of Notification: Answering Service 07/12/24 05:09 Consult: Gastroenterology Routine Consulting Provider: [facility] Reason for Consult: Acute EtOH Pancreatitis with Pancreatic Necrosis suspected on CT. EMERGENT Consult: No Notified: Yes Date Notified: 07/12/24 Time Notified: 05:09 Method of Notification: Answering Service Reason For Visit: ACUTE ETOH PANCREATITIS WITH INTACTABLE N/V AND Diagnosis Discharge Diagnosis (1) Respiratory failure with hypoxia: Status: Acute Code(s): J96.91 - Respiratory failure, unspecified with hypoxia (2) Alcohol withdrawal: Status: Acute Code(s): F10.939 - Alcohol use, unspecified with withdrawal, unspecified Qualifiers: Complication of substance-induced condition: with unspecified complication Qualified Code(s): F10.939 - Alcohol use, unspecified with withdrawal, unspecified (3) Alcoholic pancreatitis: Status: Acute Code(s): K85.20 - Alcohol induced acute pancreatitis without necrosis or infection Qualifiers: Acute pancreatitis complication: no infection or necrosis Chronicity: a cute Qualified Code(s): K85.20 - Alcohol induced acute pancreatitis without necrosis or infection (4) KARAN (acute kidney injury): Status: Acute Code(s): N17.9 - Acute kidney failure, unspecified Plan 1. Acute hypoxic respiratory failure-exact etiology unclear at this point, it does not appear that the patient has pneumonia, critical care is participating in his care 2. Alcohol induced pancreatitis with necrosis of the pancreas-patient will receive IV fluids and supportive care. #3 acute alcohol withdrawal with DTs patient is currently sedated and on the ventilator #4 essential hypertension-blood pressure will be monitored, patient will receive IV medication for hypertension if needed #4 seizure disorder-patient is on Vimpat #5 GERD-patient will be placed on lansoprazole down his NG tube #6 hypomagnesemia-patient was given magnesium replacement Total clinical time spent by myself addressing the patient's medical issues, reviewing his data, and collaborating with patient's care team: 35 minutes Medications at Discharge Home Medications multivitamin 1 tab PO DAILY 03/10/23 lacosamide 200 mg capsule,extended release 24 hr 200 mg PO BID 07/09/24 loperamide 2 mg tablet (Anti-Diarrheal (loperamide)) 2 mg PO QODAY 07/09/24 Hospital Course Operations None Procedures None Summary of Care Provided Minutes Spent on Discharge: 33 Hospital Course: This 38-year-old white male was seen in the emergency room at [facility] with complaints of abdominal pain. Patient has an alcohol substance abuse disorder. CT scan of the abdomen and pelvis showed evidence of acute pancreatitis. Patient's lipase was elevated. Patient was admitted to PCU initially and given IV pain meds and fluids, patient became agitated however and began going through alcohol withdrawal with DTs, he was transferred to ICU and that same day underwent intubation. There was concerns that the patient had necrosis from the pancreatitis, a contrasted CT confirmed this and it was felt necessary to transfer the patient to a tertiary facility which had a higher level of care in case the patient needed to undergo surgery. Patient's was in agreement to this. On 07/13/2024, patient was seen and examined: On examination he was sedated on the vent. Vital signs as documented. Skin warm and dry and without overt rashes. Neck without JVD, neck was supple, trachea midline, thyroid was normal. Lungs clear bilaterally, normal air movement was noted. Heart exam notable for regular rhythm, normal sounds and absence of murmurs, rubs or gallops. Abdomen unremarkable and without evidence of organomegaly, masses, or abdominal aortic enlargement. Bowel sounds were diminished, abdomen is not distended. Extremities nonedematous, no cyanosis was noted, no clubbing was noted. Neuro: Cranial nerves II through XII are grossly intact, no focal motor deficits were noted, sensation to light touch and pinprick intact, motor exam 5/5 throughout. Psych: Patient was sedated and on the ventilator On 07/13/2024, patient was seen and examined and felt to be in stable condition for transfer to [facility] for further care Weight / BMI Weight Weight: 86.5 kg Body Mass Index (BMI) 29.8 ABG / Lab / Microbiology Data 07/12/24 03:45 07/12/24 03:45 Laboratory: Laboratory Results - last 24 hr 07/12/24 03:45: WBC 12.5 H, RBC 4.65, Hgb 15.1, Hct 46.2, MCV 99.4 H, MCH 32.5 H , MCHC 32.7, RDW Std Deviation 46.5 H, RDW Coeff of Cecily 12.6, Plt Count 104 L, MPV 11.7, Immature Gran % (Auto) 1.700 H, Neut % (Auto) 72.3 H, Lymph % (Auto) 17.5 L, Lane % (Auto) 7.3, Eos % (Auto) 0.9, Baso % (Auto) 0.3, Absolute Neuts (auto) 9.1 H, Absolute Lymphs (auto) 2.19, Nucleated RBC % 0, Sodium 134, Potassium 3.7, Chloride Direct 101, Carbon Dioxide 16.3 L, Anion Gap 17 H, BUN 55 H, Creatinine 2.0 H, Estim Creat Clear Calc 53.63, Est GFR (MDRD) Non-Af 43 L , BUN/Creatinine Ratio 27.5 H, Glucose 140 H, Calcium 6.3 L*, Phosphorus 4.9 H, Magnesium 2.9 H, Total Bilirubin 1.51 H, AST 179 H, ALT 59 H, Alkaline Phosphatase 36 L, Total Creatine Kinase 4541 H, Total Protein 5.4 L, Albumin 3.1 L, Globulin 2.3, Albumin/Globulin Ratio 1.3, Triglycerides 244 H 07/12/24 08:20: Lactic Acid 1.5, Lipase 245 H, Procalcitonin 9.30 H Microbiology: Microbiology 07/12/24 01:40 Blood Culture (Wb) - Left Hand Blood Culture - Preliminary No growth in 48 hours. 07/12/24 01:50 Blood Culture (Wb) - Pic Blood Culture - Preliminary No growth in 48 hours. 07/12/24 01:50 Urine Catheter - Marroquin Urine Culture - Final Culture exhibits no growth. 07/11/24 13:55 Sputum, Induced/Lukens Gram Stain - Final 07/11/24 13:55 Sputum, Induced/Lukens Respiratory Culture - Final Culture exhibits no growth. 07/09/24 15:45 Mucosa - Nose SARS-CoV-2, Influenza & RSV (PCR) - Final ABG: ABG 07/12/24 05:56 Specimen Type ART Sample Site L Brach pH 7.34 L Bicarbonate Actual 14.4 L Total CO2 15 Base Excess -11 L O2 Saturation 97 O2 % 45.0 ABG pCO2 26.9 L ABG pO2 90 Erik Test N/A Respiration Rate 16 O2 Delivery Device Adult Vent Vent Mode AC Tidal Volume 500.0 POC PEEP 5 Radiography Diagnostic Testing: Radiology Impression Chest X-Ray 07/12/24 01:19 IMPRESSION: Endotracheal tube tip is 4 cm above the zack. May consider advancing the endotracheal tube 2 cm with repeat radiograph afterwards if not already repositioned. There is now a left subclavian central line with tip projecting over the right atrium. No evidence of pneumothorax identified. Reading Location: [facility] Chest/Abdomen/Pelvis CT 07/12/24 01:58 IMPRESSION: Limited examination due to lack of oral or IV contrast. Findings are worrisome for severe pancreatitis, markedly progressed since prior examination. There is moderate to high suspicious for pancreatic necrosis. Recommend surgical consultation. Prominent small bowel loops likely related to ileus versus developing small bowel obstruction. This finding is new. Small abdominopelvic ascites, which may be related to ongoing pathology within the pancreas. Ziyxb-ub-xjoksyxt bilateral pleural effusions, fyia-lummzxz-peas-right with associated compressive atelectasis within the lungs. This is new since prior. Underlying pneumonia can not be ruled out. Other findings as above. One or more dose reduction techniques were used (e.g., Automated exposure control, adjustment of the mA and/or kV according to patient size, use of iterative reconstruction technique). Reading Location: [facility] Chest X-Ray 07/12/24 05:46 IMPRESSION: Interval advancement of the endotracheal tube with tip now the level of the clavicular heads. Pulmonary airspace disease if unimproved. Reading Location: [id number] Abdomen/Pelvis CT 07/12/24 09:57 IMPRESSION: 1. Findings are consistent with ACUTE NECROTIZING PANCREATITIS.. 2. Increased ascites when compared to the earlier study. 3. Multiple markedly distended loops of small bowel with air-fluid levels, most likely ileus. 4. Bilateral pleural effusions. 5. Compressive atelectasis versus pneumonia in the bilateral lower lobes. 6. Right renal cyst. 7. Nasogastric tube. Balloon tip Marroquin catheter. Reading Location: [facility] D/C Instructions DC O2, CPAP, BIPAP Needs PSN CPAP & BiPAP: BiPAP & CPAP Settings per PSN Mode BiPAP 07/11/24 08:57 Bipap Delivery Device Face Mask 07/11/24 08:57 BiPAP Inspiratory Pressure 16 07/11/24 08:57 BiPAP Expiratory Pressure 8 07/11/24 08:57 BiPAP Rate 12 07/11/24 08:57 Fraction of Inspired Oxygen ( 45 07/12/24 15:29 FIO2) Home O2 Discharge instructions: No Meaningful Use Info Meaningful Use Meaningful Use Diagnoses (Choose all that apply): None applicable Ischemic Stroke Statin Dosing Therapy Reference: STATIN DOSE THERAPY REFERENCE: * Patients > 75 years receive moderate or high dose statin therapy. * Patients 75 years or YOUNGER should receive HIGH intensity statin dose unless contraindicated. You will be required to document reason for non-treatment if statin daily dose does not meet guidelines. HIGH DOSE STATIN THERAPY DAILY Atorvastatin > than or = to 40 mg Rosuvastatin > than or = to 20 mg Amlodipine + Atorvastatin > than or = to 2.5/40 mg Ezetimibe + Simvastatin 10/80 mg Simvastatin 80mg Discharge Plan Admission Admit Date/Time: 07/09/24 19:39 Attending Provider: Ren Noe Primary Care Provider: [facility] Consulting Providers: Rc Carrillo; Chung Kyle; Sarbjit Sierra; Bryce Hernandez; Marc Hunt; Rc Dan; Sharan Corcoran; Espinoza Alvarado; Annika Trivedi; Milton Francois; Alessio Ibrahim; Sukhwinder Sands; Martha Willis; Patti Carmichael; Laura Bonds; Jaison Heredia; Gee Huff; Derick Ch; Ranjan Fuentes; Alexia Griffin; Desean Law; Ramses Spring; Dylan Cordova; Vaughn Duffy; Katlyn Antonio; Hector Vasquez; Jorge A Cleaning; Suraj Hansen; Riaz Maynard; Deepa Glez; An Almaraz Discharge Orders/Prescriptions Prescriptions: No Action multivitamin Tablet 1 tab PO DAILY lacosamide 200 mg capsule,extended release 24hr 200 mg PO BID loperamide [Anti-Diarrheal (loperamide)] 2 mg tablet 2 mg PO QODAY Referrals / Follow Up: [facility] [Primary Care Provider[facility] - Disposition Disposition (needs filled in before D/C Order can be placed): Acute Care Hospital Charges/Coding Visit Charges Inpatient E&M: 42300 Disch Hosp >30min
== END 2024-07-12 16:44 | disposition short-term general hospital (02) | DRG 438 ==
LOC: ED 15:23 → PCU 20:06 → ICU 07-10 23:46
PROVIDERS: Internal Medicine Critical Care Medicine; Admitting Provider Internal Medicine; Emergency Provider Emergency Medicine; Referring Provider Internal Medicine; Visit Provider Internal Medicine
DX: K85.20 Alcohol induced acute pancreatitis without necrosis or infection (principal); J96.01 Acute respiratory failure with hypoxia; A41.9 Sepsis, unspecified organism; E87.20 Acidosis, unspecified; J90 Pleural effusion, not elsewhere classified; R18.8 Other ascites; F10.239 Alcohol dependence with withdrawal, unspecified; N17.9 Acute kidney failure, unspecified; J98.11 Atelectasis; G40.909 Epilepsy, unspecified, not intractable, without status epilepticus; I10 Essential (primary) hypertension; F41.9 Anxiety disorder, unspecified; E86.0 Dehydration; K21.9 Gastro-esophageal reflux disease without esophagitis; E83.42 Hypomagnesemia; K44.9 Diaphragmatic hernia without obstruction or gangrene; F12.90 Cannabis use, unspecified, uncomplicated; R11.2 Nausea with vomiting, unspecified; E66.3 Overweight; R07.9 Chest pain, unspecified; R79.89 Other specified abnormal findings of blood chemistry; Z68.27 Body mass index [BMI] 27.0-27.9, adult; R74.01 Elevation of levels of liver transaminase levels; Y90.4 Blood alcohol level of 80-99 mg/100 ml
CPT/HCPCS: 31500; 31720; 36415; 36569; 36600; 71045; 71250; 71275; 74176; 74177; 80048; 80053; 80076; 80307; 81001; 82077; 82550; 82607; 82746; 82803; 83605; 83690; 83735; 84100; 84145; 84443; 84478; 84484; 85025; 85379; 85610; 87040; 87070; 87086; 87205; 87631; 93005; 93970; 94002; 94003; 94668; 97162; 97166; 99252; 99284; Q9967; A4216; C9254; G0463; J2405

== ENCOUNTER → 2024-08-31 | Outpatient (CLI) | payer OTHER, SELFPAY ==
--- NOTE | 2024-08-31 09:08 | RAD_ITS ---
PROCEDURE: CHEST PA AND LATERAL 08/31/2024 REASON FOR EXAM: SOB TECHNIQUE: Frontal and lateral views of the chest. COMPARISON: None FINDINGS: Heart: The heart size is normal. Mediastinum: The mediastinal contour is unremarkable. Lungs: The lungs are clear. No pleural effusion. RAD/Chest PA and Lateral IMPRESSION: NO ACUTE FINDINGS. Reading [facility]
== END | disposition home or self-care (01) ==
LOC: RAD.FUTURE 09:03
PROVIDERS: Referring Provider Chiropractor; Visit Provider Chiropractor
DX: R06.02 Shortness of breath (principal)
CPT/HCPCS: 71046

== ENCOUNTER → 2024-12-14 | Outpatient (CLI) | payer OTHER, SELFPAY ==
--- NOTE | 2024-12-14 16:20 | CT_ITS ---
PROCEDURE: ABDOMEN WITH IV CONTRAST 12/14/2024 REASON FOR EXAM: ALCOHOL-INDUCED CHRONIC PANCREATITIS TECHNIQUE: ABDOMEN WITH IV CONTRAST. Multiplanar Sagittal and Coronal images were obtained. One or more dose reduction techniques were used (e.g., Automated exposure control, adjustment of the mA and/or kV according to patient size, use of iterative reconstruction technique. CONTRAST: Isovue 300 VOLUME: 98 mL RADIATION DOSE SUMMARY: CTDlvol: 25 mGy DLP: 597 mGycm COMPARISON: 07/12/2024 FINDINGS: Slight under aeration at the lung bases. Resolution of bilateral effusions. Borderline prominent heart size. Unremarkable gallbladder, liver. Interval resolution of severe pancreatitis. At the junction of the body and head, series 2, image 38, there is a low-density region, measuring approximately 1.6 x 2 cm, which could represent a small pseudocyst, or area of pancreatic necrosis, not necessarily acute. Similar finding in the uncinate process, series 2, image 48, measuring approximately 1.4 x 1.7 cm. Normal spleen, adrenal glands, left kidney. Simple right renal cyst. No hydronephrosis. No retroperitoneal adenopathy. No free air. No ascites. Interval resolution of pancreatic ascites. Nonobstructed bowel. Normal appendix. No acute large bowel findings. CT/Abdomen WITH IV Contrast IMPRESSION: Interval resolution of severe pancreatitis. There are 2 lower density regions, which may represent sequelae of pancreatitis with pancreatic necrosis rather than acute process. Interval resolution of pleural effusions, and pancreatic ascites. Reading Location: [place] [id number]
== END | disposition home or self-care (01) ==
LOC: CT 16:07
DX: K86.0 Alcohol-induced chronic pancreatitis (principal)
CPT/HCPCS: 74160; Q9967

== ENCOUNTER → 2025-05-07 | Outpatient (CLI) | payer OTHER, SELFPAY ==
--- NOTE | 2025-05-07 16:09 | MRI_ITS ---
PROCEDURE: LOWER EXT JOINT ONLY (ROUTINE) 05/08/2025 REASON FOR EXAM: RIGHT KNEE PAIN TECHNIQUE: Procedure Code: MRILEJ Modality: MR Procedure: LOWER EXT JOINT ONLY (ROUTINE) Multiplanar and multisequence images were obtained without IV contrast administration. COMPARISON: none FINDINGS: High signal of the medial patellar articular cartilage with faint underlying marrow edema. The posterior horn of the medial meniscus shows high signal not interrupting its articular surfaces. Intact lateral meniscus. Intact anterior and posterior cruciate ligaments. Intact collateral and retinacular ligaments. Intact patellar and quadriceps tendons. Mild knee joint effusion with no synovial hypertrophy. Small multilocular Schafer's cyst. A small multilocular fluid signal seen along the medial head of gastrocnemius muscle 25 x 5 mm, possibly intramuscular dissection of the Schafer's cyst. Normal MR appearance of the rest of the zahra-articular musculature with preserved inter-muscular fat planes. No marrow infiltrative lesions. MRI/Lower Ext Joint Only (Routine) IMPRESSION: Grade II patellar chondromalacia. Grade I signal of the posterior horn of the medial meniscus. Mild knee joint effusion. Small multilocular Schafer's cyst. A small multilocular fluid signal seen along the medial head of gastrocnemius m uscle, possibly intramuscular dissection of the Schafer's cyst. Reading Location: [facility]
--- NOTE | 2025-05-07 16:10 | MRI_ITS ---
PROCEDURE: SPINE LUMBAR (ROUTINE) 05/07/2025 REASON FOR EXAM: Low back pain TECHNIQUE: Procedure Code: MRISPL Modality: MR Procedure: SPINE LUMBAR (ROUTINE) COMPARISON: None available. FINDINGS: For the purposes of this report, the most caudal rectangular vertebral body will be designated L5. The next most caudal trapezoidal shaped vertebral body will be designated S1. The intervening disc at the lumbosacral angle is designated L5-S1. Straightening of the lumbar spine. The lumbar vertebral bodies are normal in height. Grade 1 L5-S1 retrolisthesis. The lumbar bone marrow signal is within normal limits. There is no evidence of signal abnormality in the imaged distal spinal cord. The conus medullaris terminates at the level of L1. T12-L1: No significant spinal canal stenosis or neural foraminal narrowing. L1-L2: No significant spinal canal stenosis or neural foraminal narrowing. L2-L3: No significant spinal canal stenosis or neural foraminal narrowing. L3-L4: No significant spinal canal stenosis or neural foraminal narrowing. L4-L5: Disc bulge flattens the ventral thecal sac. Mild bilateral neural foraminal narrowing. L5-S1: Disc bulge and central disc protrusion contents the ventral thecal sac. No significant spinal canal stenosis. Bilateral facet arthrosis. Vzld-zh-yuoxdrlf bilateral neural foraminal narrowing. The posterior paraspinal muscles are intact. MRI/Spine Lumbar (Routine) IMPRESSION: Lumbar spondylosis without high-grade spinal canal or neural foraminal stenosis most prominent at L5-S1. Reading Location: [id number]
== END | disposition home or self-care (01) ==
LOC: MRI 16:05
DX: M25.561 Pain in right knee (principal); M54.50 Low back pain, unspecified
CPT/HCPCS: 72148; 73721